=== PATIENT | female | born 1940 | race Caucasian/White ===

== ENCOUNTER → 2016-03-21 | Outpatient (CLI) | payer OTHER ==
[~2016-03-21] MED LIST: GAB400C PO; GLYB5TAB8 OR
[2016-03-21 17:18] LABS: Basophils # (auto) 0 uL; Basophils % (auto) 0.6 % (0.0-2.0); Eosinophils # (auto) 0.1 uL; Eosinophils % (auto) 1.5 % (0.0-7.0); Hematocrit 39.5 % (36.0-46.0); Hemoglobin 12.4 g/dL (12.2-16.2); Lymphocytes # (auto) 2.5 uL; Lymphocytes % (auto) 31.9 % (10.0-50.0); Mean Corpuscular Hemoglobin 29.4 pg (28.0-32.0); Mean Corpuscular Hgb Conc. 31.4 g/dL (32.0-36.0); Mean Corpuscular Volume 93.8 fL (80.0-100.0); Mean Platelet Volume 8.1 fL (7.4-10.4); Monocytes # (auto) 0.4 uL; Monocytes % (auto) 4.8 % (0.0-12.0); Neutrophils # (auto) 4.8 uL; Neutrophils % (auto) 61.2 % (37.0-80.0); Platelet Count (auto) 278 10^3/uL (140-450); Red Cell Distribution Width 13.8 % (11.6-16.0); White Blood Cell 7.8 10^3/uL (4.4-10.8)
[2016-03-21 17:22] LABS: Albumin 3.5 g/dL (3.4-5.0); Calcium 8.7 mg/dL (8.5-10.1); Potassium 4.1 mmol/L (3.5-5.1)
[2016-03-21 17:28] LABS: Bilirubin, Total 0.3 mg/dL (0.2-1.0); Total Protein 7.2 g/dL (6.4-8.2)
== END | disposition home or self-care (01) ==
LOC: LAB 16:04
PROVIDERS: ATTEND Internal Medicine
DX: E11.42 Type 2 diabetes mellitus with diabetic polyneuropathy (principal)
CPT/HCPCS: 36415; 80053; 80061; 82306; 82607; 83036; 84439; 84443; 85025; 85652

== ENCOUNTER → 2016-10-01 | Outpatient (CLI) | payer OTHER ==
[2016-10-01 15:31] LABS: Basophils # (auto) 0.1 uL; Basophils % (auto) 0.6 % (0.0-2.0); CONDITION Y; Eosinophils # (auto) 0.2 uL; Eosinophils % (auto) 1.7 % (0.0-7.0); Hemoglobin 13.9 g/dL (12.2-16.2); Lymphocytes # (auto) 2.3 uL; Lymphocytes % (auto) 24.8 % (10.0-50.0); Mean Corpuscular Hemoglobin 30.9 pg (28.0-32.0); Mean Corpuscular Hgb Conc. 33.1 g/dL (32.0-36.0); Mean Corpuscular Volume 93.5 fL (80.0-100.0); Mean Platelet Volume 8.5 fL (7.4-10.4); Monocytes # (auto) 0.4 uL; Monocytes % (auto) 4.2 % (0.0-12.0); Neutrophils # (auto) 6.3 uL; Neutrophils % (auto) 68.7 % (37.0-80.0); Platelet Count (auto) 282 10^3/uL (140-450); Red Cell Distribution Width 14.1 % (11.6-16.0); SUSPECT SEE PRINTOUT; White Blood Cell 9.2 10^3/uL (4.4-10.8)
[2016-10-01 16:22] LABS: Albumin 3.7 g/dL (3.4-5.0); BUN/Creatinine Ratio 20.1; Bilirubin, Total 0.5 mg/dL (0.2-1.0); Calcium 9.1 mg/dL (8.5-10.1); Potassium 4.5 mmol/L (3.5-5.1); Total Protein 7.5 g/dL (6.4-8.2); Uric Acid 9.9 mg/dL (2.6-6.0)
[2016-10-01 18:54] LABS: Platelet Estimate Adequate
[2016-10-01 18:55] LABS: Anisocytosis Slight; Ovalocytes FEW; Platelet Clumps OCCL.
== END | disposition home or self-care (01) ==
LOC: LAB 15:00
PROVIDERS: ATTEND Internal Medicine
DX: E11.21 Type 2 diabetes mellitus with diabetic nephropathy (principal); E11.42 Type 2 diabetes mellitus with diabetic polyneuropathy; E11.22 Type 2 diabetes mellitus with diabetic chronic kidney disease; N18.3 Chronic kidney disease, stage 3 (moderate); E11.319 Type 2 diabetes mellitus with unspecified diabetic retinopathy without macular edema; Z90.49 Acquired absence of other specified parts of digestive tract
CPT/HCPCS: 36415; 80053; 83036; 84550; 85025

== ENCOUNTER → 2017-04-10 | Outpatient (CLI) | payer OTHER ==
[2017-04-10 17:04] LABS: Albumin 3.7 g/dL (3.4-5.0); BUN/Creatinine Ratio 17.9; Bilirubin, Total 0.4 mg/dL (0.2-1.0); Calcium 8.8 mg/dL (8.5-10.1); Potassium 4.3 mmol/L (3.5-5.1); Total Protein 7.7 g/dL (6.4-8.2)
== END | disposition home or self-care (01) ==
LOC: LAB 16:20
PROVIDERS: ATTEND Internal Medicine
DX: I10 Essential (primary) hypertension (principal); E10.9 Type 1 diabetes mellitus without complications
CPT/HCPCS: 36415; 80053; 82043; 83036

== ENCOUNTER 2017-09-09 16:13 | Inpatient (IN) | payer OTHER ==
[~2017-09-09] VITALS: Ht 165.1 cm; Wt 131.0 kg
[2017-09-09 17:03] LABS: Basophils # (auto) 0 uL; Basophils % (auto) 0.4 % (0.0-2.0); Eosinophils # (auto) 0 uL; Eosinophils % (auto) 0.1 % (0.0-7.0); Hematocrit 38.9 % (36.0-46.0); Hemoglobin 12.9 g/dL (12.2-16.2); Lymphocytes # (auto) 1.1 uL; Lymphocytes % (auto) 10.6 % (10.0-50.0); Mean Corpuscular Hemoglobin 30.8 pg (28.0-32.0); Mean Corpuscular Volume 93.3 fL (80.0-100.0); Monocytes # (auto) 1.1 uL; Monocytes % (auto) 10.8 % (0.0-12.0); Neutrophils % (auto) 78.1 % (37.0-80.0); Platelet Count (auto) 220 10^3/uL (140-450); Red Blood Cells 4.17 10^6/uL (4.0-5.20); Red Cell Distribution Width 15.2 % (11.8-14.3); White Blood Cell 10.3 10^3/uL (4.4-10.8)
[2017-09-09 17:19] LABS: Albumin 2.8 g/dL (3.4-5.0); BUN/Creatinine Ratio 39.4; Calcium 8.7 mg/dL (8.5-10.1); Potassium 4.9 mmol/L (3.5-5.1)
[2017-09-09 17:21] LABS: Bilirubin, Total 0.7 mg/dL (0.2-1.0); Total Protein 6.5 g/dL (6.4-8.2)
[2017-09-09] MEDS ORDERED: SODIUM CHLORIDE 0.9% 1,000 ML IV ONE ×3 (18:09→21:30)
[2017-09-09] MEDS ORDERED: MORPHINE SULFATE 4 MG/ML SYR/VIAL IV ONE ×2 (18:15→20:00)
[2017-09-09] MEDS ORDERED: ONDANSETRON HCL 4 MG/2 ML VIAL IV ONE (18:15)
[2017-09-09 19:22] LABS: INR 0.99 (0.9-1.15); Partial Thromboplastin Time 27.5 sec (23.78-33.04); Prothrombin Time 10.6 sec (9.27-12.13)
[2017-09-09 19:32] LABS: Magnesium 2.4 mg/dL (1.6-2.6)
[2017-09-09] MEDS ORDERED: ONDANSETRON HCL 4 MG/2 ML VIAL IV PRN (21:30)
[2017-09-09] MEDS ORDERED: TEMAZEPAM 15 MG CAP PO PRN (21:30)
[2017-09-09] MEDS ORDERED: NITROGLYCERIN 0.4 MG SL TAB SL PRN (21:30)
[2017-09-09] MEDS ORDERED: ACETAMINOPHEN 325 MG TAB PO PRN (21:30)
[2017-09-09] MEDS ORDERED: MORPHINE SULF INJ 2 MG/ML SYRINGE 1ML IV PRN (21:30)
[2017-09-09] MEDS ORDERED: glyBURIDE 5 MG TAB PO ONE (21:30)
[2017-09-09 22:45] VITALS: BP 134/71
[2017-09-09 23:00] VITALS: BP 134/71
[2017-09-09] MEDS: ENOXAPARIN SOD 40 MG/0.4 ML SYRINGE SC SCH (23:21)
[2017-09-09] MEDS: PANTOPRAZOLE 40 MG TAB PO SCH (23:22)
[2017-09-10 00:21] LABS: Urine Bacteria NONE SEEN /hpf (None Seen); Urine Blood Negative /uL (Negative); Urine Hyaline Cast MOD /lpf (0 - 2); Urine Specific Gravity 1.018 (1.001-1.035); Urine WBC 1 /hpf (0 - 5)
[2017-09-10] MEDS: SODIUM CHLORIDE 0.9% 1,000 ML IV SCH ×3 (05:30→18:52)
[2017-09-10 06:00] VITALS: BP 130/54
[2017-09-10] MEDS: glyBURIDE 5 MG TAB PO SCH ×2 (06:34→18:53)
[2017-09-10 06:48] LABS: Basophils # (auto) 0 uL; Basophils % (auto) 0.3 % (0.0-2.0); Eosinophils # (auto) 0.1 uL; Eosinophils % (auto) 0.8 % (0.0-7.0); Hematocrit 35.6 % (36.0-46.0); Hemoglobin 11.8 g/dL (12.2-16.2); Lymphocytes # (auto) 1.7 uL; Lymphocytes % (auto) 21.7 % (10.0-50.0); Mean Corpuscular Hgb Conc. 33.1 g/dL (32.0-36.0); Mean Corpuscular Volume 93.7 fL (80.0-100.0); Monocytes # (auto) 0.9 uL; Neutrophils % (auto) 65.2 % (37.0-80.0); Nucleated Red Blood Cells % 0.1 %; Platelet Count (auto) 202 10^3/uL (140-450); Red Cell Distribution Width 15.2 % (11.8-14.3); White Blood Cell 7.6 10^3/uL (4.4-10.8)
[2017-09-10 07:03] LABS: Albumin 2.4 g/dL (3.4-5.0); BUN/Creatinine Ratio 41.5; Potassium 4.3 mmol/L (3.5-5.1)
[2017-09-10 07:25] LABS: Bilirubin, Total 0.3 mg/dL (0.2-1.0); Total Protein 5.7 g/dL (6.4-8.2)
[2017-09-10 09:00] VITALS: BP 109/54
[2017-09-10] MEDS: ENOXAPARIN SOD 40 MG/0.4 ML SYRINGE SC SCH (09:15)
[2017-09-10] MEDS: PANTOPRAZOLE 40 MG TAB PO SCH (09:15)
[2017-09-10] MEDS: HYDROcodone-ACET 5/325MG TAB PO PRN (09:20)
[2017-09-10] MEDS ORDERED: PIOG30TA37 (11:09)
[2017-09-10] MEDS ORDERED: GLIP-116 (11:09)
[2017-09-10] MEDS ORDERED: PIO30T PO (11:30)
[2017-09-10] MEDS ORDERED: LOVA20TA4 PO (11:30)
[2017-09-10] MEDS ORDERED: GLIP-116 PO (11:30)
[2017-09-10] MEDS ORDERED: FLUO10TA18 PO (11:30)
[2017-09-10] MEDS: SILVER SULFADIAZINE 1 % TOPICAL CREAM 50GM TOP SCH (12:28)
[2017-09-10 13:00] VITALS: BP 105/52
[2017-09-10] MEDS ORDERED: MORPHINE SULF INJ 2 MG/ML SYRINGE 1ML IV ONE (14:00)
[2017-09-10] MEDS ORDERED: DEXTROSE (50%) 50ML SYRG IV PRN (14:30)
[2017-09-10 17:00] VITALS: BP 101/42
[2017-09-10] MEDS: ACCU-CHEK COMFORT CURVE STRIP VI SCH ×2 (18:53→21:51)
[2017-09-10] MEDS: InsuLIN REG 1unit/0.01ml Soln (100units/ml) SC SCH ×2 (18:56→21:52)
[2017-09-10] MEDS: MORPHINE SULF INJ 2 MG/ML SYRINGE 1ML IV PRN (21:52)
[2017-09-10 22:20] VITALS: BP 116/54
[2017-09-11] VITALS (7 sets, daily range): BP systolic 111–125; BP diastolic 53–58
[2017-09-11] MEDS: SODIUM CHLORIDE 0.9% 1,000 ML IV SCH (00:32)
[2017-09-11] MEDS: MORPHINE SULF INJ 2 MG/ML SYRINGE 1ML IV PRN ×2 (03:14→22:12)
[2017-09-11] MEDS: HYDROcodone-ACET 5/325MG TAB PO PRN ×2 (05:48→12:20)
[2017-09-11] MEDS: ACCU-CHEK COMFORT CURVE STRIP VI SCH ×3 (06:57→17:01)
[2017-09-11] MEDS: glyBURIDE 5 MG TAB PO SCH ×2 (06:57→17:03)
[2017-09-11] MEDS: InsuLIN REG 1unit/0.01ml Soln (100units/ml) SC SCH ×3 (06:58→17:02)
[2017-09-11 07:35] LABS: Hematocrit 33.4 % (36.0-46.0); Mean Corpuscular Hemoglobin 30.4 pg (28.0-32.0); Mean Corpuscular Hgb Conc. 32.8 g/dL (32.0-36.0); Mean Corpuscular Volume 92.9 fL (80.0-100.0); Platelet Count (auto) 184 10^3/uL (140-450); White Blood Cell 7.3 10^3/uL (4.4-10.8)
[2017-09-11 07:47] LABS: Basophils % (manual) 0 (0.0-2.0); Blast Cells 0; Myelocytes % 0; Promyelocytes % 0; Reactive Lymphocytes 0
[2017-09-11 07:53] LABS: Alanine Aminotransferase 39 U/L (13-56); Albumin 2.2 g/dL (3.4-5.0); Alkaline Phosphatase 44 U/L (45-117); Anion Gap 9 (5-15); Aspartate Aminotransferase 24 U/L (15-37); BUN/Creatinine Ratio 35.7; Bilirubin, Total 0.2 mg/dL (0.2-1.0); Calcium 7.7 mg/dL (8.5-10.1); Carbon Dioxide 18 mmol/L (21-32); Chloride 109 mmol/L (98-107); Cholesterol 136 mg/dL (< 200); Creatine Kinase IFCC 531 U/L (26-192); GFR African American 26 mL/min; GFR Non-African American 21 mL/min; Glucose 157 mg/dL (74-106); HDL Cholesterol 47 mg/dL (40-59); LDL Cholesterol 70 mg/dL (< 100); Magnesium 2.4 mg/dL (1.6-2.6); Potassium 3.8 mmol/L (3.5-5.1); Sodium 136 mmol/L (136-145); Total Protein 5.4 g/dL (6.4-8.2); Triglycerides 136 mg/dL (< 150)
[2017-09-11 08:11] LABS: Blood Urea Nitrogen 85 mg/dL (7-18)
[2017-09-11 09:18] LABS: Band Neutrophils % (manual) 1; Eosinophils % (manual) 5 (0-7); Lymphocytes % (manual) 25 (10.0-50.0); Metamyelocytes % 1; Monocytes % (manual) 13 (0-12)
[2017-09-11] MEDS: SILVER SULFADIAZINE 1 % TOPICAL CREAM 50GM TOP SCH (10:23)
[2017-09-11] MEDS: PANTOPRAZOLE 40 MG TAB PO SCH (10:24)
[2017-09-11] MEDS: ENOXAPARIN SOD 30 MG/0.3 ML SYRINGE SC SCH (10:24)
[2017-09-11] MEDS ORDERED: FUROSEMIDE 40 MG/4 ML VIAL IV ONE (14:15)
[2017-09-11] MEDS ORDERED: SODIUM CHLORIDE 0.9% 1,000 ML IV SCH (14:30)
[2017-09-11] MEDS: IPRATROPIUM BROM 0.5 MG/2.5ML INH SOL NEB SCH (18:15)
[2017-09-11] MEDS: ALBUTEROL SULF 2.5 MG/0.5ML(0.5%) NEB SOLN NEB SCH (18:15)
[2017-09-12] MEDS: InsuLIN REG 1unit/0.01ml Soln (100units/ml) SC SCH ×5 (02:26→22:30)
[2017-09-12] MEDS: ACCU-CHEK COMFORT CURVE STRIP VI SCH ×5 (02:26→22:30)
[2017-09-12 04:49] VITALS: BP 137/60
[2017-09-12] MEDS: MORPHINE SULF INJ 2 MG/ML SYRINGE 1ML IV PRN ×2 (05:59→22:30)
[2017-09-12] MEDS: glyBURIDE 5 MG TAB PO SCH ×2 (06:22→17:43)
[2017-09-12] MEDS: ALBUTEROL SULF 2.5 MG/0.5ML(0.5%) NEB SOLN NEB SCH ×4 (06:33→18:43)
[2017-09-12] MEDS: IPRATROPIUM BROM 0.5 MG/2.5ML INH SOL NEB SCH ×4 (06:33→18:43)
[2017-09-12 07:33] LABS: Potassium 4.1 mmol/L (3.5-5.1)
[2017-09-12 07:40] LABS: BUN/Creatinine Ratio 39.8; Calcium 7.8 mg/dL (8.5-10.1)
[2017-09-12 08:00] VITALS: BP 124/54
[2017-09-12] MEDS ORDERED: FUROSEMIDE 40 MG/4 ML VIAL IV SCH (10:00)
[2017-09-12] MEDS ORDERED: FUROSEMIDE 40 MG/4 ML VIAL IV ONE (10:30)
[2017-09-12] MEDS: GABAPENTIN 400 MG CAP PO SCH ×2 (11:40→22:29)
[2017-09-12] MEDS: ENOXAPARIN SOD 30 MG/0.3 ML SYRINGE SC SCH (11:40)
[2017-09-12] MEDS: PANTOPRAZOLE 40 MG TAB PO SCH (11:41)
[2017-09-12] MEDS: HYDROcodone-ACET 5/325MG TAB PO PRN ×2 (11:44→23:33)
[2017-09-12 12:00] VITALS: BP 142/70
[2017-09-12 16:00] VITALS: BP 106/70
[2017-09-12] MEDS: SILVER SULFADIAZINE 1 % TOPICAL CREAM 50GM TOP SCH (16:35)
[2017-09-12 22:00] VITALS: BP 132/49
[2017-09-13 05:04] VITALS: BP 157/52
[2017-09-13 06:33] LABS: Potassium 3.7 mmol/L (3.5-5.1)
[2017-09-13] MEDS: glyBURIDE 5 MG TAB PO SCH ×2 (06:33→17:33)
[2017-09-13] MEDS: InsuLIN REG 1unit/0.01ml Soln (100units/ml) SC SCH ×4 (06:33→22:21)
[2017-09-13] MEDS: ACCU-CHEK COMFORT CURVE STRIP VI SCH ×4 (06:34→22:22)
[2017-09-13] MEDS: ALBUTEROL SULF 2.5 MG/0.5ML(0.5%) NEB SOLN NEB SCH ×2 (06:37→11:23)
[2017-09-13] MEDS: IPRATROPIUM BROM 0.5 MG/2.5ML INH SOL NEB SCH ×2 (06:37→11:23)
[2017-09-13 08:00] VITALS: BP 115/51
[2017-09-13 12:00] VITALS: BP 138/49
[2017-09-13] MEDS: PANTOPRAZOLE 40 MG TAB PO SCH (12:19)
[2017-09-13] MEDS: ENOXAPARIN SOD 30 MG/0.3 ML SYRINGE SC SCH (12:19)
[2017-09-13] MEDS: GABAPENTIN 400 MG CAP PO SCH ×2 (12:19→22:21)
[2017-09-13] MEDS: SILVER SULFADIAZINE 1 % TOPICAL CREAM 50GM TOP SCH (12:19)
[2017-09-13] MEDS ORDERED: DOCUSATE SOD 100 MG CAP PO PRN (13:45)
[2017-09-13] MEDS ORDERED: LACTULOSE 20Gm/30ML SOLN PO ONE (14:00)
[2017-09-13] MEDS: HYDROcodone-ACET 5/325MG TAB PO PRN (14:11)
[2017-09-13 16:00] VITALS: BP 121/27
[2017-09-13] MEDS: LACTULOSE 20Gm/30ML SOLN PO SCH ×2 (17:33→22:22)
[2017-09-13 23:11] VITALS: BP 100/57
[2017-09-14 05:28] VITALS: BP 132/55
[2017-09-14] MEDS: LACTULOSE 20Gm/30ML SOLN PO SCH ×3 (06:00→17:59)
[2017-09-14] MEDS: ACCU-CHEK COMFORT CURVE STRIP VI SCH ×4 (06:23→22:00)
[2017-09-14] MEDS: glyBURIDE 5 MG TAB PO SCH ×2 (06:23→18:00)
[2017-09-14] MEDS: InsuLIN REG 1unit/0.01ml Soln (100units/ml) SC SCH ×4 (06:23→22:00)
[2017-09-14] MEDS: HYDROcodone-ACET 5/325MG TAB PO PRN (06:30)
[2017-09-14] MEDS ORDERED: MORPHINE SULFATE 4 MG/ML SYR/VIAL ONE (06:55)
[2017-09-14] MEDS ORDERED: MORPHINE SULFATE 4 MG/ML SYR/VIAL IV ONE (07:00)
[2017-09-14 07:17] LABS: Hematocrit 32.2 % (36.0-46.0); Hemoglobin 11.1 g/dL (12.2-16.2); Mean Corpuscular Hemoglobin 31.6 pg (28.0-32.0); Mean Corpuscular Hgb Conc. 34.4 g/dL (32.0-36.0); Mean Corpuscular Volume 91.9 fL (80.0-100.0); Platelet Count (auto) 210 10^3/uL (140-450); White Blood Cell 7.1 10^3/uL (4.4-10.8)
[2017-09-14 07:21] LABS: Basophils % (manual) 0 (0.0-2.0); Blast Cells 0; Metamyelocytes % 0; Myelocytes % 0; Promyelocytes % 0; Reactive Lymphocytes 0
[2017-09-14 07:36] LABS: BUN/Creatinine Ratio 31.2; Bilirubin, Total 0.3 mg/dL (0.2-1.0); Calcium 8.4 mg/dL (8.5-10.1); Phosphorus 2.1 mg/dL (2.5-4.90); Total Protein 5.9 g/dL (6.4-8.2)
[2017-09-14 08:00] VITALS: BP 142/70
[2017-09-14 09:00] VITALS: BP 137/62
[2017-09-14] MEDS: GABAPENTIN 400 MG CAP PO SCH ×2 (10:28→21:59)
[2017-09-14] MEDS: PANTOPRAZOLE 40 MG TAB PO SCH (10:29)
[2017-09-14] MEDS: SILVER SULFADIAZINE 1 % TOPICAL CREAM 50GM TOP SCH (10:29)
[2017-09-14] MEDS: ENOXAPARIN SOD 30 MG/0.3 ML SYRINGE SC SCH (10:29)
[2017-09-14 10:43] LABS: Band Neutrophils % (manual) 1; Eosinophils % (manual) 1 (0-7); Lymphocytes % (manual) 15 (10.0-50.0); Monocytes % (manual) 11 (0-12)
[2017-09-14 13:00] VITALS: BP 133/52
[2017-09-14] MEDS ORDERED: cefTAZidime 1 GM in SODIUM CHL 0.9% 50 ML IV ONE ×2 (16:15→16:30)
[2017-09-14] MEDS ORDERED: cefTAZidime 1 GM in SODIUM CHL 0.9% 50 ML IV SCH (16:25)
[2017-09-14 17:00] VITALS: BP 159/60
[2017-09-14 22:59] VITALS: BP 126/63
[2017-09-15] MEDS: LACTULOSE 20Gm/30ML SOLN PO SCH ×5 (00:13→22:26)
[2017-09-15 05:18] VITALS: BP 139/63
[2017-09-15] MEDS: cefTAZidime 1 GM in SODIUM CHL 0.9% 50 ML IV SCH (06:39)
[2017-09-15] MEDS: glyBURIDE 5 MG TAB PO SCH ×2 (06:40→18:34)
[2017-09-15] MEDS: ACCU-CHEK COMFORT CURVE STRIP VI SCH ×4 (06:41→22:26)
[2017-09-15] MEDS: InsuLIN REG 1unit/0.01ml Soln (100units/ml) SC SCH ×4 (06:41→22:26)
[2017-09-15] MEDS: traMADol HCL 50 MG TAB PO PRN ×3 (06:42→22:25)
[2017-09-15 08:49] VITALS: BP 137/66
[2017-09-15] MEDS: GABAPENTIN 400 MG CAP PO SCH ×2 (09:52→22:25)
[2017-09-15] MEDS: PANTOPRAZOLE 40 MG TAB PO SCH (09:52)
[2017-09-15] MEDS: ENOXAPARIN SOD 40 MG/0.4 ML SYRINGE SC SCH (09:52)
[2017-09-15] MEDS: SILVER SULFADIAZINE 1 % TOPICAL CREAM 50GM TOP SCH (10:00)
[2017-09-15] MEDS ORDERED: SODIUM PHOSPHATES 24 MEQ in SODIUM CHL 0.9% 100 ML IV ONE (10:45)
[2017-09-15 12:07] VITALS: BP 149/76
[2017-09-15] MEDS: MORPHINE SULF INJ 2 MG/ML SYRINGE 1ML IV PRN (12:53)
[2017-09-15 18:15] VITALS: BP 142/69
[2017-09-15 22:00] VITALS: BP 152/53
[2017-09-16 05:10] VITALS: BP 142/78
[2017-09-16] MEDS: cefTAZidime 1 GM in SODIUM CHL 0.9% 50 ML IV SCH ×3 (06:00→18:00)
[2017-09-16] MEDS: traMADol HCL 50 MG TAB PO PRN ×2 (06:16→21:04)
[2017-09-16] MEDS: GABAPENTIN 400 MG CAP PO SCH (06:16)
[2017-09-16] MEDS: InsuLIN REG 1unit/0.01ml Soln (100units/ml) SC SCH ×3 (06:17→19:58)
[2017-09-16] MEDS: glyBURIDE 5 MG TAB PO SCH ×2 (06:17→19:58)
[2017-09-16] MEDS: ACCU-CHEK COMFORT CURVE STRIP VI SCH ×3 (06:18→19:58)
[2017-09-16] MEDS: LACTULOSE 20Gm/30ML SOLN PO SCH ×3 (06:28→18:00)
[2017-09-16 07:32] LABS: Albumin 1.8 g/dL (3.4-5.0); BUN/Creatinine Ratio 30.1; Bilirubin, Total 0.3 mg/dL (0.2-1.0); Calcium 7.9 mg/dL (8.5-10.1); Magnesium 2.2 mg/dL (1.6-2.6); Phosphorus 4.3 mg/dL (2.5-4.90); Potassium 4.1 mmol/L (3.5-5.1); Total Protein 5.5 g/dL (6.4-8.2)
[2017-09-16 08:00] VITALS: BP 156/72
[2017-09-16] MEDS ORDERED: BISACODYL 10 MG RECT SUPP PR ONE (10:45)
[2017-09-16] MEDS ORDERED: ASCORBIC ACID 500 MG TAB PO ONE (10:45)
[2017-09-16] MEDS ORDERED: ZINC SULFATE 220mg CAP or TAB PO ONE (10:45)
[2017-09-16] MEDS: ENOXAPARIN SOD 40 MG/0.4 ML SYRINGE SC SCH (10:54)
[2017-09-16] MEDS: PANTOPRAZOLE 40 MG TAB PO SCH (10:54)
[2017-09-16] MEDS: SILVER SULFADIAZINE 1 % TOPICAL CREAM 50GM TOP SCH (10:54)
[2017-09-16 13:00] VITALS: BP 143/71
[2017-09-16 17:00] VITALS: BP 126/61
[2017-09-16 20:14] VITALS: BP 131/75
[2017-09-16] MEDS ORDERED: DOCUSATE SOD 100 MG CAP PO SCH (22:00)
[2017-09-16] MEDS ORDERED: ASCORBIC ACID 500 MG TAB PO SCH (22:00)
[2017-09-16] MEDS: MORPHINE SULF INJ 2 MG/ML SYRINGE 1ML IV PRN (23:18)
[2017-09-17] MEDS ORDERED: FLUoxetine HCL 10 MG CAP PO SCH (10:00)
[2017-09-17] MEDS ORDERED: ZINC SULFATE 220mg CAP or TAB PO SCH (10:00)
== END 2017-09-16 23:15 | disposition short-term general hospital (02) | DRG 922 ==
LOC: ER 16:13 → EDBD 16:13 → TELE 16:14 → TELE-CENTR 22:45
PROVIDERS: ADMIT Nurse Practitioner; ATTEND Internal Medicine
DX: T67.0XXA Heatstroke and sunstroke, initial encounter (principal); N17.0 Acute kidney failure with tubular necrosis; M62.82 Rhabdomyolysis; E44.0 Moderate protein-calorie malnutrition; Z68.42 Body mass index [BMI] 45.0-49.9, adult; N18.4 Chronic kidney disease, stage 4 (severe); E11.21 Type 2 diabetes mellitus with diabetic nephropathy; E11.22 Type 2 diabetes mellitus with diabetic chronic kidney disease; E66.01 Morbid (severe) obesity due to excess calories; E78.5 Hyperlipidemia, unspecified; E83.39 Other disorders of phosphorus metabolism; E86.9 Volume depletion, unspecified; E11.42 Type 2 diabetes mellitus with diabetic polyneuropathy; Z60.2 Problems related to living alone; E86.0 Dehydration; R26.9 Unspecified abnormalities of gait and mobility; W01.0XXA Fall on same level from slipping, tripping and stumbling without subsequent striking against object, initial encounter; M16.11 Unilateral primary osteoarthritis, right hip; I12.9 Hypertensive chronic kidney disease with stage 1 through stage 4 chronic kidney disease, or unspecified chronic kidney disease; K59.00 Constipation, unspecified; Z82.49 Family history of ischemic heart disease and other diseases of the circulatory system; Z83.3 Family history of diabetes mellitus; Z90.49 Acquired absence of other specified parts of digestive tract; Z98.51 Tubal ligation status; Z87.891 Personal history of nicotine dependence; Z83.42 Family history of familial hypercholesterolemia; Y93.89 Activity, other specified; Y92.017 Garden or yard in single-family (private) house as the place of occurrence of the external cause; Y99.8 Other external cause status; X30.XXXA Exposure to excessive natural heat, initial encounter
CPT/HCPCS: 36415; 51702; 71045; 73700; 80048; 80053; 80061; 81001; 82550; 82962; 83036; 83735; 83880; 84100; 84443; 84484; 84550; 85007; 85025; 85027; 85610; 85730; 94640; 94761; 96361; 96374; 96375; 97110; 97163; 97530; A6257; J1815; J2405

== ENCOUNTER 2017-09-19 23:19 | Inpatient (IN) | payer OTHER ==
[~2017-09-19] VITALS: Ht 165.1 cm; Wt 136.2 kg
[~2017-09-19 23:19] MED LIST changes: +FLUO10TA18 PO; +GLIP-116 PO; -GLYB5TAB8 OR; +LOVA20TA4 PO; +PIO30T PO
[2017-09-19 23:45] VITALS: BP 102/57
[2017-09-20] VITALS: BP 102/57
[2017-09-20 05:00] VITALS: BP 119/58
[2017-09-20] MEDS: MORPHINE SULF INJ 2 MG/ML SYRINGE 1ML IV PRN ×2 (05:08→12:44)
[2017-09-20 07:07] LABS: Hematocrit 28.6 % (36.0-46.0); Hemoglobin 9.3 g/dL (12.2-16.2); Mean Corpuscular Hemoglobin 30.3 pg (28.0-32.0); Mean Corpuscular Hgb Conc. 32.5 g/dL (32.0-36.0); Mean Corpuscular Volume 93.1 fL (80.0-100.0); Platelet Count (auto) 295 10^3/uL (140-450); Red Blood Cells 3.07 10^6/uL (4.0-5.20); Red Cell Distribution Width 14.6 % (11.8-14.3); White Blood Cell 7.9 10^3/uL (4.4-10.8)
[2017-09-20 07:17] LABS: Albumin 1.8 g/dL (3.4-5.0); BUN/Creatinine Ratio 42.4; Basophils % (manual) 0 (0.0-2.0); Blast Cells 0; Metamyelocytes % 0; Myelocytes % 0; Potassium 4.8 mmol/L (3.5-5.1); Promyelocytes % 0; Reactive Lymphocytes 0
[2017-09-20 07:20] LABS: Bilirubin, Total 0.1 mg/dL (0.2-1.0); Total Protein 5.4 g/dL (6.4-8.2)
[2017-09-20 07:21] LABS: INR 0.9 (0.9-1.15); Partial Thromboplastin Time 30.6 sec (23.78-33.04); Prothrombin Time 9.7 sec (9.27-12.13)
[2017-09-20] MEDS ORDERED: MORPHINE SULF INJ 2 MG/ML SYRINGE 1ML IV PRN (07:30)
[2017-09-20] MEDS ORDERED: ACETAMINOPHEN 325 MG TAB PO PRN (07:30)
[2017-09-20] MEDS ORDERED: NITROGLYCERIN 0.4 MG SL TAB SL PRN (07:30)
[2017-09-20] MEDS ORDERED: TEMAZEPAM 15 MG CAP PO PRN (07:30)
[2017-09-20 09:00] VITALS: BP 133/58
[2017-09-20] MEDS: PANTOPRAZOLE 40 MG TAB PO SCH (09:01)
[2017-09-20] MEDS: ENOXAPARIN SOD 40 MG/0.4 ML SYRINGE SC SCH ×2 (09:02→22:40)
[2017-09-20] MEDS: HYDROcodone-ACET 7.5/325MG TAB PO PRN ×2 (09:02→22:40)
[2017-09-20] MEDS: SODIUM CHLORIDE 0.9% 1,000 ML IV SCH ×2 (09:03→21:20)
[2017-09-20] MEDS: PIOGLITAZONE HYDROCHLORIDE 30 MG TAB PO SCH (09:08)
[2017-09-20] MEDS: glipiZIDE 5 MG TAB PO SCH ×2 (09:08→18:21)
[2017-09-20] MEDS: FLUoxetine HCL 10 MG CAP PO SCH (09:09)
[2017-09-20] MEDS: SILVER SULFADIAZINE 1 % TOPICAL CREAM 50GM TOP SCH (09:09)
[2017-09-20 11:38] LABS: Band Neutrophils % (manual) 3; Eosinophils % (manual) 1 (0-7)
[2017-09-20 11:39] LABS: Lymphocytes % (manual) 24 (10.0-50.0); Monocytes % (manual) 7 (0-12)
[2017-09-20 13:00] VITALS: BP 127/63
[2017-09-20 16:36] VITALS: BP 115/48
[2017-09-20] MEDS: NEOMYCIN-BACITRACIN-POLYM 15GM TOP OINT TOP SCH (18:19)
[2017-09-20 22:00] VITALS: BP 134/57
[2017-09-20] MEDS: PRAVASTATIN SODIUM 20 MG TAB PO SCH (22:40)
[2017-09-21 05:00] VITALS: BP 127/53
[2017-09-21 06:53] LABS: Hematocrit 26.1 % (36.0-46.0); Hemoglobin 8.6 g/dL (12.2-16.2); Mean Corpuscular Hemoglobin 30.5 pg (28.0-32.0); Mean Corpuscular Volume 92.4 fL (80.0-100.0); Platelet Count (auto) 294 10^3/uL (140-450); Red Blood Cells 2.82 10^6/uL (4.0-5.20); Red Cell Distribution Width 14.3 % (11.8-14.3); White Blood Cell 7.6 10^3/uL (4.4-10.8)
[2017-09-21] MEDS: glipiZIDE 5 MG TAB PO SCH ×2 (07:08→17:50)
[2017-09-21 07:16] LABS: Band Neutrophils % (manual) 0; Basophils % (manual) 0 (0.0-2.0); Blast Cells 0; Promyelocytes % 0; Reactive Lymphocytes 0
[2017-09-21 07:17] LABS: Albumin 1.7 g/dL (3.4-5.0); BUN/Creatinine Ratio 46.8; Bilirubin, Total 0.1 mg/dL (0.2-1.0); Calcium 7.9 mg/dL (8.5-10.1); Potassium 4.5 mmol/L (3.5-5.1); Total Protein 5.2 g/dL (6.4-8.2)
[2017-09-21 08:28] VITALS: BP 130/57
[2017-09-21] MEDS ORDERED: BISACODYL 10 MG RECT SUPP PR ONE (08:45)
[2017-09-21] MEDS ORDERED: MILK OF MAGNESIA 30ML SUSP PO ONE (08:45)
[2017-09-21] MEDS: SILVER SULFADIAZINE 1 % TOPICAL CREAM 50GM TOP SCH (10:00)
[2017-09-21] MEDS: FERROUS SULFATE 325 MG TAB PO SCH (10:01)
[2017-09-21] MEDS: DOCUSATE SOD 100 MG CAP PO SCH ×2 (10:01→21:31)
[2017-09-21] MEDS: HYDROcodone-ACET 7.5/325MG TAB PO PRN ×2 (10:01→17:51)
[2017-09-21] MEDS: PANTOPRAZOLE 40 MG TAB PO SCH (10:01)
[2017-09-21] MEDS: PIOGLITAZONE HYDROCHLORIDE 30 MG TAB PO SCH (10:02)
[2017-09-21] MEDS: ENOXAPARIN SOD 40 MG/0.4 ML SYRINGE SC SCH ×2 (10:02→21:31)
[2017-09-21] MEDS: FLUoxetine HCL 10 MG CAP PO SCH (10:03)
[2017-09-21] MEDS: SODIUM CHLORIDE 0.9% 1,000 ML IV SCH (10:09)
[2017-09-21 12:00] VITALS: BP 129/56
[2017-09-21 13:29] LABS: Eosinophils % (manual) 5 (0-7); Lymphocytes % (manual) 25 (10.0-50.0); Metamyelocytes % 2; Monocytes % (manual) 8 (0-12); Myelocytes % 1
[2017-09-21] MEDS: NEOMYCIN-BACITRACIN-POLYM 15GM TOP OINT TOP SCH (14:00)
[2017-09-21 16:15] VITALS: BP 151/58
[2017-09-21] MEDS: PRAVASTATIN SODIUM 20 MG TAB PO SCH (21:31)
[2017-09-21 22:00] VITALS: BP 142/57
[2017-09-22] MEDS: HYDROcodone-ACET 7.5/325MG TAB PO PRN ×2 (02:22→20:17)
[2017-09-22] MEDS: SODIUM CHLORIDE 0.9% 1,000 ML IV SCH ×3 (02:34→19:15)
[2017-09-22 05:00] VITALS: BP 150/73
[2017-09-22 06:02] LABS: BUN/Creatinine Ratio 40.3; Calcium 8.4 mg/dL (8.5-10.1)
[2017-09-22 06:10] LABS: Hematocrit 27.6 % (36.0-46.0); Hemoglobin 9.1 g/dL (12.2-16.2); Mean Corpuscular Hemoglobin 30.6 pg (28.0-32.0); Mean Corpuscular Hgb Conc. 32.9 g/dL (32.0-36.0); Mean Corpuscular Volume 92.9 fL (80.0-100.0); Platelet Count (auto) 332 10^3/uL (140-450); Red Blood Cells 2.97 10^6/uL (4.0-5.20); Red Cell Distribution Width 14.6 % (11.8-14.3); White Blood Cell 7.6 10^3/uL (4.4-10.8)
[2017-09-22 06:26] LABS: Basophils % (manual) 0 (0.0-2.0); Blast Cells 0; Eosinophils % (manual) 0 (0-7); Metamyelocytes % 0; Myelocytes % 0; Promyelocytes % 0; Reactive Lymphocytes 0
[2017-09-22] MEDS: glipiZIDE 5 MG TAB PO SCH ×2 (06:50→19:33)
[2017-09-22 08:34] LABS: Band Neutrophils % (manual) 2; Lymphocytes % (manual) 10 (10.0-50.0); Monocytes % (manual) 8 (0-12)
[2017-09-22] MEDS: ONDANSETRON HCL 4 MG/2 ML VIAL IV PRN (08:35)
[2017-09-22 09:00] VITALS: BP 128/56
[2017-09-22] MEDS: PANTOPRAZOLE 40 MG TAB PO SCH (10:10)
[2017-09-22] MEDS: FERROUS SULFATE 325 MG TAB PO SCH (10:10)
[2017-09-22] MEDS: DOCUSATE SOD 100 MG CAP PO SCH ×2 (10:10→21:23)
[2017-09-22] MEDS: PIOGLITAZONE HYDROCHLORIDE 30 MG TAB PO SCH (10:15)
[2017-09-22] MEDS: ENOXAPARIN SOD 40 MG/0.4 ML SYRINGE SC SCH ×2 (10:16→21:23)
[2017-09-22] MEDS: FLUoxetine HCL 10 MG CAP PO SCH (10:16)
[2017-09-22] MEDS: SILVER SULFADIAZINE 1 % TOPICAL CREAM 50GM TOP SCH (10:17)
[2017-09-22] MEDS: NEOMYCIN-BACITRACIN-POLYM 15GM TOP OINT TOP SCH (10:17)
[2017-09-22 13:00] VITALS: BP 144/74
[2017-09-22] MEDS ORDERED: LACTULOSE 20Gm/30ML SOLN PO PRN (14:30)
[2017-09-22] MEDS ORDERED: DEXTROSE (50%) 50ML SYRG IV PRN (14:30)
[2017-09-22 17:00] VITALS: BP 140/69
[2017-09-22] MEDS: ACCU-CHEK COMFORT CURVE STRIP VI SCH ×2 (19:32→21:23)
[2017-09-22] MEDS: InsuLIN REG 1unit/0.01ml Soln (100units/ml) SC SCH ×2 (19:33→21:28)
[2017-09-22] MEDS: PRAVASTATIN SODIUM 20 MG TAB PO SCH (21:23)
[2017-09-22 21:57] VITALS: BP 122/57
[2017-09-23 05:49] VITALS: BP 118/47
[2017-09-23] MEDS: InsuLIN REG 1unit/0.01ml Soln (100units/ml) SC SCH ×4 (06:46→21:52)
[2017-09-23] MEDS: ACCU-CHEK COMFORT CURVE STRIP VI SCH ×4 (06:46→21:50)
[2017-09-23] MEDS: glipiZIDE 5 MG TAB PO SCH ×3 (06:48→18:26)
[2017-09-23] MEDS: ONDANSETRON HCL 4 MG/2 ML VIAL IV PRN (06:49)
[2017-09-23] MEDS: SODIUM CHLORIDE 0.9% 1,000 ML IV SCH ×2 (07:14→23:50)
[2017-09-23 07:25] LABS: Calcium 8.4 mg/dL (8.5-10.1); Potassium 5.4 mmol/L (3.5-5.1)
[2017-09-23 08:07] LABS: Hematocrit 26.6 % (36.0-46.0); Hemoglobin 8.6 g/dL (12.2-16.2)
[2017-09-23 09:06] VITALS: BP 140/60
[2017-09-23] MEDS: PROMETHAZINE HCL 25 MG/ML 1ML IV PRN (09:33)
[2017-09-23] MEDS: DOCUSATE SOD 100 MG CAP PO SCH ×2 (09:34→21:50)
[2017-09-23] MEDS: FERROUS SULFATE 325 MG TAB PO SCH (09:34)
[2017-09-23] MEDS: FLUoxetine HCL 10 MG CAP PO SCH (09:35)
[2017-09-23] MEDS: PANTOPRAZOLE 40 MG TAB PO SCH (09:35)
[2017-09-23] MEDS: ENOXAPARIN SOD 40 MG/0.4 ML SYRINGE SC SCH ×2 (09:36→21:49)
[2017-09-23] MEDS: SILVER SULFADIAZINE 1 % TOPICAL CREAM 50GM TOP SCH (09:37)
[2017-09-23] MEDS: NEOMYCIN-BACITRACIN-POLYM 15GM TOP OINT TOP SCH (09:37)
[2017-09-23] MEDS ORDERED: MORPHINE SULF INJ 2 MG/ML SYRINGE 1ML IV PRN (10:00)
[2017-09-23] MEDS: PIOGLITAZONE HYDROCHLORIDE 30 MG TAB PO SCH (10:24)
[2017-09-23 13:06] VITALS: BP 129/53
[2017-09-23] MEDS: METOCLOPRAMIDE HCL 5MG/ml INJ 2ml VIAL IV SCH ×2 (13:36→21:49)
[2017-09-23] MEDS ORDERED: ASCORBIC ACID 500 MG TAB PO ONE (17:30)
[2017-09-23] MEDS ORDERED: MULTIPLE VITAMIN TAB PO ONE (17:45)
[2017-09-23 17:46] VITALS: BP 138/58
[2017-09-23] MEDS: Pro-Stat SF 30ml Vanilla PO SCH (18:00)
[2017-09-23] MEDS: PRAVASTATIN SODIUM 20 MG TAB PO SCH (21:50)
[2017-09-23] MEDS: ASCORBIC ACID 500 MG TAB PO SCH (21:50)
[2017-09-23 22:00] VITALS: BP 118/45
[2017-09-24 04:40] VITALS: BP 120/51
[2017-09-24 05:32] LABS: Hematocrit 26.3 % (36.0-46.0); Hemoglobin 8.8 g/dL (12.2-16.2)
[2017-09-24 05:58] LABS: Calcium 8.4 mg/dL (8.5-10.1); Magnesium 2.4 mg/dL (1.6-2.6); Potassium 4.9 mmol/L (3.5-5.1)
[2017-09-24] MEDS: METOCLOPRAMIDE HCL 5MG/ml INJ 2ml VIAL IV SCH ×3 (06:12→22:00)
[2017-09-24] MEDS: ACCU-CHEK COMFORT CURVE STRIP VI SCH ×4 (06:22→22:15)
[2017-09-24] MEDS: InsuLIN REG 1unit/0.01ml Soln (100units/ml) SC SCH ×4 (06:22→22:25)
[2017-09-24] MEDS: glipiZIDE 5 MG TAB PO SCH ×2 (07:00→18:00)
[2017-09-24] MEDS: HYDROcodone-ACET 7.5/325MG TAB PO PRN ×2 (08:04→14:10)
[2017-09-24] MEDS ORDERED: MORPHINE SULFATE 4 MG/ML SYR/VIAL IV PRN (08:45)
[2017-09-24 09:02] VITALS: BP 125/51
[2017-09-24] MEDS: Pro-Stat SF 30ml Vanilla PO SCH ×2 (09:13→18:00)
[2017-09-24] MEDS: MORPHINE SULF INJ 2 MG/ML SYRINGE 1ML IV PRN ×3 (09:15→16:35)
[2017-09-24] MEDS: ASCORBIC ACID 500 MG TAB PO SCH ×2 (10:00→22:14)
[2017-09-24] MEDS: DOCUSATE SOD 100 MG CAP PO SCH ×2 (10:00→22:00)
[2017-09-24] MEDS: NEOMYCIN-BACITRACIN-POLYM 15GM TOP OINT TOP SCH (10:00)
[2017-09-24] MEDS: SILVER SULFADIAZINE 1 % TOPICAL CREAM 50GM TOP SCH (10:00)
[2017-09-24] MEDS: FLUoxetine HCL 10 MG CAP PO SCH (10:00)
[2017-09-24] MEDS: FERROUS SULFATE 325 MG TAB PO SCH (10:57)
[2017-09-24] MEDS: ENOXAPARIN SOD 40 MG/0.4 ML SYRINGE SC SCH ×2 (10:57→22:15)
[2017-09-24] MEDS: PANTOPRAZOLE 40 MG TAB PO SCH (10:57)
[2017-09-24] MEDS: MULTIPLE VITAMIN TAB PO SCH (10:58)
[2017-09-24] MEDS: GABAPENTIN 400 MG CAP PO SCH ×2 (10:58→22:15)
[2017-09-24] MEDS: PIOGLITAZONE HYDROCHLORIDE 30 MG TAB PO SCH (10:58)
[2017-09-24] MEDS: PROMETHAZINE HCL 25 MG/ML 1ML IV PRN (12:21)
[2017-09-24 12:34] VITALS: BP 134/54
[2017-09-24] MEDS: SODIUM CHLORIDE 0.9% 1,000 ML IV SCH (16:30)
[2017-09-24 16:34] VITALS: BP 152/72
[2017-09-24 21:30] VITALS: BP 147/67
[2017-09-24] MEDS: PRAVASTATIN SODIUM 20 MG TAB PO SCH (22:14)
[2017-09-25 05:00] VITALS: BP 149/74
[2017-09-25] MEDS: METOCLOPRAMIDE HCL 5MG/ml INJ 2ml VIAL IV SCH ×3 (05:45→21:35)
[2017-09-25] MEDS: ACCU-CHEK COMFORT CURVE STRIP VI SCH ×4 (06:13→21:34)
[2017-09-25] MEDS: InsuLIN REG 1unit/0.01ml Soln (100units/ml) SC SCH ×4 (06:14→21:35)
[2017-09-25] MEDS: glipiZIDE 5 MG TAB PO SCH ×2 (07:00→17:58)
[2017-09-25 09:00] VITALS: BP 145/69
[2017-09-25] MEDS: ENOXAPARIN SOD 40 MG/0.4 ML SYRINGE SC SCH ×2 (09:21→21:34)
[2017-09-25] MEDS: GABAPENTIN 400 MG CAP PO SCH ×2 (09:22→21:33)
[2017-09-25] MEDS: ASCORBIC ACID 500 MG TAB PO SCH ×2 (09:22→21:33)
[2017-09-25] MEDS: PIOGLITAZONE HYDROCHLORIDE 30 MG TAB PO SCH (09:22)
[2017-09-25] MEDS: FLUoxetine HCL 10 MG CAP PO SCH (09:22)
[2017-09-25] MEDS: PANTOPRAZOLE 40 MG TAB PO SCH (09:23)
[2017-09-25] MEDS: FERROUS SULFATE 325 MG TAB PO SCH (09:23)
[2017-09-25] MEDS: MULTIPLE VITAMIN TAB PO SCH (09:23)
[2017-09-25] MEDS: SODIUM CHLORIDE 0.9% 1,000 ML IV SCH ×2 (09:25→15:35)
[2017-09-25] MEDS: DOCUSATE SOD 100 MG CAP PO SCH ×2 (09:25→21:35)
[2017-09-25] MEDS: HYDROcodone-ACET 7.5/325MG TAB PO PRN ×2 (12:16→16:30)
[2017-09-25 12:59] VITALS: BP 140/67
[2017-09-25] MEDS: NEOMYCIN-BACITRACIN-POLYM 15GM TOP OINT TOP SCH (15:35)
[2017-09-25] MEDS: Pro-Stat SF 30ml Vanilla PO SCH ×2 (15:35→18:04)
[2017-09-25] MEDS: SILVER SULFADIAZINE 1 % TOPICAL CREAM 50GM TOP SCH (15:36)
[2017-09-25 17:00] VITALS: BP 138/66
[2017-09-25] MEDS: PRAVASTATIN SODIUM 20 MG TAB PO SCH (21:33)
[2017-09-25 21:50] VITALS: BP 151/53
[2017-09-26 05:11] VITALS: BP 141/65
[2017-09-26] MEDS: SODIUM CHLORIDE 0.9% 1,000 ML IV SCH (05:26)
[2017-09-26] MEDS: METOCLOPRAMIDE HCL 5MG/ml INJ 2ml VIAL IV SCH ×3 (06:00→21:27)
[2017-09-26 06:03] LABS: BUN/Creatinine Ratio 18.8; Calcium 8.3 mg/dL (8.5-10.1); Potassium 4.3 mmol/L (3.5-5.1)
[2017-09-26] MEDS: glipiZIDE 5 MG TAB PO SCH ×2 (06:16→18:53)
[2017-09-26] MEDS: ACCU-CHEK COMFORT CURVE STRIP VI SCH ×4 (06:17→21:36)
[2017-09-26] MEDS: InsuLIN REG 1unit/0.01ml Soln (100units/ml) SC SCH ×4 (06:17→21:36)
[2017-09-26] MEDS ORDERED: FUROSEMIDE 20 MG/2 ML VIAL IV ONE (08:30)
[2017-09-26 09:00] VITALS: BP 147/71
[2017-09-26] MEDS: GABAPENTIN 400 MG CAP PO SCH ×2 (09:32→21:27)
[2017-09-26] MEDS: MULTIPLE VITAMIN TAB PO SCH (09:32)
[2017-09-26] MEDS: PANTOPRAZOLE 40 MG TAB PO SCH (09:32)
[2017-09-26] MEDS: PIOGLITAZONE HYDROCHLORIDE 30 MG TAB PO SCH (09:32)
[2017-09-26] MEDS: ENOXAPARIN SOD 40 MG/0.4 ML SYRINGE SC SCH (09:32)
[2017-09-26] MEDS: ASCORBIC ACID 500 MG TAB PO SCH ×2 (09:32→21:27)
[2017-09-26] MEDS: FERROUS SULFATE 325 MG TAB PO SCH (09:34)
[2017-09-26] MEDS: FLUoxetine HCL 10 MG CAP PO SCH (09:35)
[2017-09-26] MEDS: DOCUSATE SOD 100 MG CAP PO SCH ×2 (10:00→21:27)
[2017-09-26] MEDS ORDERED: IPRATROPIUM BROM 0.5 MG/2.5ML INH SOL NEB PRN (10:30)
[2017-09-26] MEDS ORDERED: ALBUTEROL SULF 2.5 MG/0.5ML(0.5%) NEB SOLN NEB PRN (10:30)
[2017-09-26] MEDS: Pro-Stat SF 30ml Vanilla PO SCH ×2 (11:49→18:00)
[2017-09-26] MEDS: SILVER SULFADIAZINE 1 % TOPICAL CREAM 50GM TOP SCH (11:50)
[2017-09-26] MEDS: NEOMYCIN-BACITRACIN-POLYM 15GM TOP OINT TOP SCH (11:50)
[2017-09-26 13:00] VITALS: BP 133/61
[2017-09-26 15:23] VITALS: BP 133/61
[2017-09-26 17:00] VITALS: BP 107/71
[2017-09-26] MEDS: HYDROcodone-ACET 7.5/325MG TAB PO PRN ×2 (18:15→18:56)
[2017-09-26] MEDS: PRAVASTATIN SODIUM 20 MG TAB PO SCH (21:27)
[2017-09-26 21:57] VITALS: BP 126/62
[2017-09-27 05:09] VITALS: BP 138/60
[2017-09-27 05:34] LABS: Hematocrit 27.8 % (36.0-46.0)
[2017-09-27] MEDS: METOCLOPRAMIDE HCL 5MG/ml INJ 2ml VIAL IV SCH ×3 (06:00→22:00)
[2017-09-27] MEDS: glipiZIDE 5 MG TAB PO SCH ×2 (06:22→17:45)
[2017-09-27] MEDS: ACCU-CHEK COMFORT CURVE STRIP VI SCH ×4 (06:23→22:51)
[2017-09-27] MEDS: InsuLIN REG 1unit/0.01ml Soln (100units/ml) SC SCH ×4 (06:23→22:00)
[2017-09-27 09:00] VITALS: BP 170/71
[2017-09-27] MEDS: DOCUSATE SOD 100 MG CAP PO SCH ×2 (10:00→22:00)
[2017-09-27] MEDS: SILVER SULFADIAZINE 1 % TOPICAL CREAM 50GM TOP SCH (10:00)
[2017-09-27] MEDS: MULTIPLE VITAMIN TAB PO SCH (10:00)
[2017-09-27] MEDS: ENOXAPARIN SOD 40 MG/0.4 ML SYRINGE SC SCH (10:45)
[2017-09-27] MEDS: GABAPENTIN 400 MG CAP PO SCH ×2 (10:45→23:00)
[2017-09-27] MEDS: FLUoxetine HCL 10 MG CAP PO SCH (10:45)
[2017-09-27] MEDS: ASCORBIC ACID 500 MG TAB PO SCH ×2 (10:45→23:01)
[2017-09-27] MEDS: PANTOPRAZOLE 40 MG TAB PO SCH (10:45)
[2017-09-27] MEDS: Pro-Stat SF 30ml Vanilla PO SCH ×2 (11:20→18:43)
[2017-09-27] MEDS: FERROUS SULFATE 325 MG TAB PO SCH (11:20)
[2017-09-27] MEDS ORDERED: MORPHINE SULF INJ 2 MG/ML SYRINGE 1ML IV PRN (11:30)
[2017-09-27] MEDS: NEOMYCIN-BACITRACIN-POLYM 15GM TOP OINT TOP SCH (12:00)
[2017-09-27] MEDS: HYDROcodone-ACET 7.5/325MG TAB PO PRN (12:15)
[2017-09-27 13:00] VITALS: BP 145/57
[2017-09-27] MEDS ORDERED: FUROSEMIDE 40 MG/4 ML VIAL IV ONE (13:15)
[2017-09-27] MEDS ORDERED: POTASSIUM CHL 20 Meq TABLET PO ONE (13:15)
[2017-09-27] MEDS ORDERED: LABETALOL HCL 5 MG/ML ML 20ML VIAL IV PRN (13:15)
[2017-09-27 17:00] VITALS: BP 135/57
[2017-09-27 22:00] VITALS: BP 148/70
[2017-09-27] MEDS: PRAVASTATIN SODIUM 20 MG TAB PO SCH (23:01)
[2017-09-28 05:00] VITALS: BP 161/68
[2017-09-28] MEDS: METOCLOPRAMIDE HCL 5MG/ml INJ 2ml VIAL IV SCH ×3 (05:33→21:27)
[2017-09-28] MEDS: InsuLIN REG 1unit/0.01ml Soln (100units/ml) SC SCH ×4 (06:50→21:28)
[2017-09-28] MEDS: ACCU-CHEK COMFORT CURVE STRIP VI SCH ×4 (06:50→21:28)
[2017-09-28] MEDS: glipiZIDE 5 MG TAB PO SCH ×2 (06:51→17:50)
[2017-09-28] MEDS: HYDROcodone-ACET 7.5/325MG TAB PO PRN ×4 (07:35→21:22)
[2017-09-28] MEDS: Pro-Stat SF 30ml Vanilla PO SCH ×2 (08:00→17:50)
[2017-09-28 09:00] VITALS: BP 143/64
[2017-09-28] MEDS: DOCUSATE SOD 100 MG CAP PO SCH ×2 (10:00→21:27)
[2017-09-28] MEDS: ENOXAPARIN SOD 40 MG/0.4 ML SYRINGE SC SCH (10:08)
[2017-09-28] MEDS: ASCORBIC ACID 500 MG TAB PO SCH ×2 (10:09→21:23)
[2017-09-28] MEDS: GABAPENTIN 400 MG CAP PO SCH ×2 (10:09→21:23)
[2017-09-28] MEDS: MULTIPLE VITAMIN TAB PO SCH (10:09)
[2017-09-28] MEDS: PANTOPRAZOLE 40 MG TAB PO SCH (10:09)
[2017-09-28] MEDS: FERROUS SULFATE 325 MG TAB PO SCH (10:09)
[2017-09-28] MEDS: FLUoxetine HCL 10 MG CAP PO SCH (10:10)
[2017-09-28] MEDS: SILVER SULFADIAZINE 1 % TOPICAL CREAM 50GM TOP SCH (10:10)
[2017-09-28] MEDS: NEOMYCIN-BACITRACIN-POLYM 15GM TOP OINT TOP SCH (10:10)
[2017-09-28] MEDS ORDERED: FUROSEMIDE 40 MG/4 ML VIAL IV ONE (11:30)
[2017-09-28] MEDS ORDERED: POTASSIUM CHL 10 Meq TABLET PO ONE (11:30)
[2017-09-28 13:00] VITALS: BP 149/71
[2017-09-28 17:00] VITALS: BP 144/65
[2017-09-28] MEDS ORDERED: HYDROmorphone HCL 2 MG/ML VL IV ONE (18:15)
[2017-09-28] MEDS: TEMAZEPAM 15 MG CAP PO PRN (21:23)
[2017-09-28] MEDS: PRAVASTATIN SODIUM 20 MG TAB PO SCH (21:23)
[2017-09-28 22:00] VITALS: BP 148/66
[2017-09-29 05:23] VITALS: BP 130/59
[2017-09-29 05:51] LABS: Basophils # (auto) 0 uL; Basophils % (auto) 0.7 % (0.0-2.0); Eosinophils # (auto) 0.2 uL; Eosinophils % (auto) 3.4 % (0.0-7.0); Hematocrit 29.4 % (36.0-46.0); Hemoglobin 9.9 g/dL (12.2-16.2); Lymphocytes # (auto) 1.8 uL; Lymphocytes % (auto) 30.1 % (10.0-50.0); Mean Corpuscular Hemoglobin 31.1 pg (28.0-32.0); Mean Corpuscular Hgb Conc. 33.5 g/dL (32.0-36.0); Mean Corpuscular Volume 92.7 fL (80.0-100.0); Monocytes # (auto) 0.5 uL; Monocytes % (auto) 8.4 % (0.0-12.0); Neutrophils # (auto) 3.5 uL; Neutrophils % (auto) 57.4 % (37.0-80.0); Nucleated Red Blood Cells % 0.1 %; Platelet Count (auto) 350 10^3/uL (140-450); Red Blood Cells 3.17 10^6/uL (4.0-5.20); Red Cell Distribution Width 14.8 % (11.8-14.3)
[2017-09-29 05:55] LABS: Calcium 8.1 mg/dL (8.5-10.1); Magnesium 1.6 mg/dL (1.6-2.6)
[2017-09-29 05:57] LABS: BUN/Creatinine Ratio 10.5
[2017-09-29] MEDS: METOCLOPRAMIDE HCL 5MG/ml INJ 2ml VIAL IV SCH ×3 (06:00→22:00)
[2017-09-29] MEDS: glipiZIDE 5 MG TAB PO SCH ×2 (06:13→18:00)
[2017-09-29] MEDS: InsuLIN REG 1unit/0.01ml Soln (100units/ml) SC SCH ×4 (06:14→22:37)
[2017-09-29] MEDS: ACCU-CHEK COMFORT CURVE STRIP VI SCH ×4 (06:14→22:38)
[2017-09-29 08:00] VITALS: BP 127/60
[2017-09-29 08:29] VITALS: BP 130/59
[2017-09-29] MEDS: DOCUSATE SOD 100 MG CAP PO SCH ×2 (10:00→22:00)
[2017-09-29] MEDS: MULTIPLE VITAMIN TAB PO SCH (10:59)
[2017-09-29] MEDS: FLUoxetine HCL 10 MG CAP PO SCH (10:59)
[2017-09-29] MEDS: FERROUS SULFATE 325 MG TAB PO SCH (11:00)
[2017-09-29] MEDS: PANTOPRAZOLE 40 MG TAB PO SCH (11:00)
[2017-09-29] MEDS: ASCORBIC ACID 500 MG TAB PO SCH ×2 (11:00→22:37)
[2017-09-29] MEDS: GABAPENTIN 400 MG CAP PO SCH ×2 (11:00→22:36)
[2017-09-29] MEDS: ENOXAPARIN SOD 40 MG/0.4 ML SYRINGE SC SCH (11:01)
[2017-09-29] MEDS: Pro-Stat SF 30ml Vanilla PO SCH ×2 (11:03→18:00)
[2017-09-29] MEDS: SILVER SULFADIAZINE 1 % TOPICAL CREAM 50GM TOP SCH (11:04)
[2017-09-29] MEDS: NEOMYCIN-BACITRACIN-POLYM 15GM TOP OINT TOP SCH (11:04)
[2017-09-29 13:00] VITALS: BP 142/66
[2017-09-29] MEDS ORDERED: HYDROcodone-ACET 7.5/325MG TAB PO PRN (14:15)
[2017-09-29] MEDS ORDERED: FUROSEMIDE 40 MG/4 ML VIAL IV ONE (14:15)
[2017-09-29] MEDS ORDERED: MAGNESIUM SULFATE 1GM/100ML 100 ML IV ONE (14:15)
[2017-09-29] MEDS ORDERED: POTASSIUM CHL 10 Meq TABLET PO ONE (14:15)
[2017-09-29 17:00] VITALS: BP 152/77
[2017-09-29 22:00] VITALS: BP 139/65
[2017-09-29] MEDS: PRAVASTATIN SODIUM 20 MG TAB PO SCH (22:35)
[2017-09-29] MEDS: TEMAZEPAM 15 MG CAP PO PRN (22:36)
[2017-09-30] MEDS: METOCLOPRAMIDE HCL 5MG/ml INJ 2ml VIAL IV SCH ×3 (05:28→21:49)
[2017-09-30 05:31] VITALS: BP 120/58
[2017-09-30 06:18] LABS: BUN/Creatinine Ratio 13.3; Calcium 7.9 mg/dL (8.5-10.1); Magnesium 1.9 mg/dL (1.6-2.6); Potassium 3.9 mmol/L (3.5-5.1)
[2017-09-30] MEDS: glipiZIDE 5 MG TAB PO SCH ×2 (06:32→18:38)
[2017-09-30] MEDS: ACCU-CHEK COMFORT CURVE STRIP VI SCH ×4 (06:33→21:49)
[2017-09-30] MEDS: InsuLIN REG 1unit/0.01ml Soln (100units/ml) SC SCH ×4 (06:33→21:53)
[2017-09-30] MEDS: Pro-Stat SF 30ml Vanilla PO SCH ×2 (08:00→18:38)
[2017-09-30 08:34] VITALS: BP 117/55
[2017-09-30] MEDS: FLUoxetine HCL 10 MG CAP PO SCH (10:12)
[2017-09-30] MEDS: GABAPENTIN 400 MG CAP PO SCH ×2 (10:12→21:49)
[2017-09-30] MEDS: PANTOPRAZOLE 40 MG TAB PO SCH (10:13)
[2017-09-30] MEDS: MULTIPLE VITAMIN TAB PO SCH (10:13)
[2017-09-30] MEDS: ASCORBIC ACID 500 MG TAB PO SCH ×2 (10:13→21:49)
[2017-09-30] MEDS: FERROUS SULFATE 325 MG TAB PO SCH (10:13)
[2017-09-30] MEDS: ENOXAPARIN SOD 40 MG/0.4 ML SYRINGE SC SCH (10:14)
[2017-09-30] MEDS: NEOMYCIN-BACITRACIN-POLYM 15GM TOP OINT TOP SCH (10:15)
[2017-09-30] MEDS: SILVER SULFADIAZINE 1 % TOPICAL CREAM 50GM TOP SCH (10:16)
[2017-09-30] MEDS: DOCUSATE SOD 100 MG CAP PO SCH ×2 (10:25→21:49)
[2017-09-30 11:46] VITALS: BP 141/76
[2017-09-30] MEDS ORDERED: DOCU100C8 PO (13:37)
[2017-09-30] MEDS ORDERED: FURO40TA PO (13:37)
[2017-09-30] MEDS ORDERED: FER325T PO (13:37)
[2017-09-30] MEDS ORDERED: POTA1TAB61 PO (13:38)
[2017-09-30 17:24] VITALS: BP 122/58
[2017-09-30 21:31] VITALS: BP 153/58
[2017-09-30] MEDS: PRAVASTATIN SODIUM 20 MG TAB PO SCH (21:49)
[2017-10-01 05:02] VITALS: BP 141/60
[2017-10-01] MEDS: METOCLOPRAMIDE HCL 5MG/ml INJ 2ml VIAL IV SCH (06:00)
[2017-10-01] MEDS: ACCU-CHEK COMFORT CURVE STRIP VI SCH ×4 (06:15→21:45)
[2017-10-01] MEDS: InsuLIN REG 1unit/0.01ml Soln (100units/ml) SC SCH ×4 (06:27→21:48)
[2017-10-01] MEDS: glipiZIDE 5 MG TAB PO SCH ×2 (06:27→18:00)
[2017-10-01 09:00] VITALS: BP 135/72
[2017-10-01] MEDS: SILVER SULFADIAZINE 1 % TOPICAL CREAM 50GM TOP SCH (10:00)
[2017-10-01] MEDS: NEOMYCIN-BACITRACIN-POLYM 15GM TOP OINT TOP SCH (10:00)
[2017-10-01] MEDS: DOCUSATE SOD 100 MG CAP PO SCH ×2 (11:25→21:45)
[2017-10-01] MEDS: MULTIPLE VITAMIN TAB PO SCH (11:25)
[2017-10-01] MEDS: Pro-Stat SF 30ml Vanilla PO SCH ×2 (11:25→18:00)
[2017-10-01] MEDS: GABAPENTIN 400 MG CAP PO SCH ×2 (11:25→21:45)
[2017-10-01] MEDS: FERROUS SULFATE 325 MG TAB PO SCH (11:25)
[2017-10-01] MEDS: PANTOPRAZOLE 40 MG TAB PO SCH (11:26)
[2017-10-01] MEDS: FLUoxetine HCL 10 MG CAP PO SCH (11:28)
[2017-10-01] MEDS: ASCORBIC ACID 500 MG TAB PO SCH ×2 (11:29→21:45)
[2017-10-01] MEDS: ENOXAPARIN SOD 40 MG/0.4 ML SYRINGE SC SCH (11:29)
[2017-10-01 13:00] VITALS: BP 141/71
[2017-10-01 17:00] VITALS: BP 138/70
[2017-10-01] MEDS: PRAVASTATIN SODIUM 20 MG TAB PO SCH (21:45)
[2017-10-01 22:00] VITALS: BP 154/53
[2017-10-02 05:00] VITALS: BP 139/63
[2017-10-02] MEDS: ACCU-CHEK COMFORT CURVE STRIP VI SCH ×3 (06:28→17:00)
[2017-10-02] MEDS: InsuLIN REG 1unit/0.01ml Soln (100units/ml) SC SCH ×3 (06:29→17:00)
[2017-10-02] MEDS: glipiZIDE 5 MG TAB PO SCH ×2 (06:29→17:00)
[2017-10-02] MEDS: Pro-Stat SF 30ml Vanilla PO SCH (08:00)
[2017-10-02 08:52] VITALS: BP 133/60
[2017-10-02 08:55] VITALS: BP 133/60
[2017-10-02] MEDS: FERROUS SULFATE 325 MG TAB PO SCH (09:00)
[2017-10-02] MEDS ORDERED: NITR-48 PO (09:04)
[2017-10-02] MEDS: FLUoxetine HCL 10 MG CAP PO SCH (10:00)
[2017-10-02] MEDS: MULTIPLE VITAMIN TAB PO SCH (10:00)
[2017-10-02] MEDS: ENOXAPARIN SOD 40 MG/0.4 ML SYRINGE SC SCH (10:00)
[2017-10-02] MEDS: SILVER SULFADIAZINE 1 % TOPICAL CREAM 50GM TOP SCH (10:00)
[2017-10-02] MEDS: GABAPENTIN 400 MG CAP PO SCH (10:00)
[2017-10-02] MEDS: PANTOPRAZOLE 40 MG TAB PO SCH (10:00)
[2017-10-02] MEDS: NEOMYCIN-BACITRACIN-POLYM 15GM TOP OINT TOP SCH (10:00)
[2017-10-02] MEDS: DOCUSATE SOD 100 MG CAP PO SCH (10:00)
[2017-10-02] MEDS: ASCORBIC ACID 500 MG TAB PO SCH (10:00)
[2017-10-02 13:37] VITALS: BP 138/70
[2017-10-02 13:44] VITALS: BP 138/70
== END 2017-10-02 20:30 | disposition home health service (06) | DRG 935 ==
LOC: TELE-CENTR 23:19
PROVIDERS: ADMIT Family Medicine; ATTEND Internal Medicine
DX: T21.20XA Burn of second degree of trunk, unspecified site, initial encounter (principal); E43 Unspecified severe protein-calorie malnutrition; N17.0 Acute kidney failure with tubular necrosis; M62.82 Rhabdomyolysis; Z68.43 Body mass index [BMI] 50.0-59.9, adult; E66.01 Morbid (severe) obesity due to excess calories; T31.0 Burns involving less than 10% of body surface; E11.22 Type 2 diabetes mellitus with diabetic chronic kidney disease; E11.21 Type 2 diabetes mellitus with diabetic nephropathy; L55.1 Sunburn of second degree; D63.8 Anemia in other chronic diseases classified elsewhere; E78.5 Hyperlipidemia, unspecified; T22.20XA Burn of second degree of shoulder and upper limb, except wrist and hand, unspecified site, initial encounter; E11.42 Type 2 diabetes mellitus with diabetic polyneuropathy; T24.212A Burn of second degree of left thigh, initial encounter; T24.201A Burn of second degree of unspecified site of right lower limb, except ankle and foot, initial encounter; E86.0 Dehydration; I12.9 Hypertensive chronic kidney disease with stage 1 through stage 4 chronic kidney disease, or unspecified chronic kidney disease; K59.00 Constipation, unspecified; N18.3 Chronic kidney disease, stage 3 (moderate); Z82.49 Family history of ischemic heart disease and other diseases of the circulatory system; Z83.3 Family history of diabetes mellitus; Z90.49 Acquired absence of other specified parts of digestive tract
CPT/HCPCS: 36415; 71045; 80048; 80053; 82962; 83735; 84132; 85007; 85014; 85018; 85025; 85027; 85610; 85730; 87081; 93005; 94640; 97163; A6257; J1815; J2405

== ENCOUNTER 2017-10-06 20:59 | Inpatient (IN) | payer OTHER ==
[~2017-10-06] VITALS: Ht 165.1 cm; Wt 123.9 kg
[~2017-10-06 20:59] MED LIST changes: +DOCU100C8 PO; +FER325T PO; +FURO40TA PO; +NITR-48 PO; +POTA1TAB61 PO
[2017-10-06] MEDS ORDERED: DEXTROSE (50%) 50ML SYRG IV PRN (21:15)
[2017-10-06] MEDS ORDERED: MORPHINE SULF INJ 2 MG/ML SYRINGE 1ML IV PRN (21:15)
[2017-10-06] MEDS ORDERED: NITROGLYCERIN 0.4 MG SL TAB SL PRN (21:15)
[2017-10-06] MEDS ORDERED: HYDROcodone-ACET 5/325MG TAB PO PRN (22:45)
[2017-10-06] MEDS ORDERED: cloNIDine HCL 0.1 MG TAB PO PRN (22:45)
[2017-10-06] MEDS ORDERED: ACETAMINOPHEN 500 MG TAB PO PRN (22:45)
[2017-10-07] MEDS: SODIUM CHLORIDE 0.9% 1,000 ML IV SCH ×2 (00:20→10:00)
[2017-10-07] MEDS: GABAPENTIN 400 MG CAP PO SCH ×2 (00:21→21:55)
[2017-10-07] MEDS: cefTAZidime 1 GM in SODIUM CHL 0.9% 50 ML IV SCH ×4 (00:21→21:55)
[2017-10-07] MEDS: InsuLIN REG 1unit/0.01ml Soln (100units/ml) SC SCH ×5 (00:21→22:01)
[2017-10-07] MEDS: ACCU-CHEK COMFORT CURVE STRIP VI SCH ×5 (00:21→22:00)
[2017-10-07 04:52] VITALS: BP 134/57
[2017-10-07] MEDS: glipiZIDE 5 MG TAB PO SCH ×2 (06:56→18:45)
[2017-10-07 09:00] VITALS: BP 144/70
[2017-10-07] MEDS ORDERED: PIOGLITAZONE HYDROCHLORIDE 30 MG TAB PO SCH (10:00)
[2017-10-07] MEDS: FLUoxetine HCL 10 MG CAP PO SCH (10:01)
[2017-10-07] MEDS ORDERED: POTASSIUM CHL 20 Meq TABLET PO ONE (11:15)
[2017-10-07] MEDS ORDERED: FUROSEMIDE 40 MG/4 ML VIAL IV ONE (11:15)
[2017-10-07 12:25] VITALS: BP 152/66
[2017-10-07 16:42] VITALS: BP 125/57
[2017-10-07 21:24] LABS: Urine Bacteria NONE SEEN /hpf (None Seen); Urine Blood Negative /uL (Negative); Urine Specific Gravity 1.006 (1.001-1.035); Urine WBC 3 /hpf (0 - 5)
[2017-10-07 22:00] VITALS: BP 136/61
[2017-10-08 05:30] VITALS: BP 140/62
[2017-10-08] MEDS: glipiZIDE 5 MG TAB PO SCH ×2 (06:17→18:19)
[2017-10-08] MEDS: cefTAZidime 1 GM in SODIUM CHL 0.9% 50 ML IV SCH ×3 (06:17→21:44)
[2017-10-08] MEDS: InsuLIN REG 1unit/0.01ml Soln (100units/ml) SC SCH ×4 (06:18→22:00)
[2017-10-08 06:19] LABS: Basophils # (auto) 0 uL; Basophils % (auto) 0.7 % (0.0-2.0); Eosinophils # (auto) 0.2 uL; Hematocrit 28.4 % (36.0-46.0); Hemoglobin 9.3 g/dL (12.2-16.2); Lymphocytes # (auto) 1.5 uL; Lymphocytes % (auto) 26.8 % (10.0-50.0); Mean Corpuscular Hemoglobin 30.2 pg (28.0-32.0); Mean Corpuscular Hgb Conc. 32.7 g/dL (32.0-36.0); Mean Corpuscular Volume 92.3 fL (80.0-100.0); Monocytes # (auto) 0.5 uL; Monocytes % (auto) 8.6 % (0.0-12.0); Neutrophils # (auto) 3.4 uL; Neutrophils % (auto) 60.9 % (37.0-80.0); Nucleated Red Blood Cells % 0.1 %; Platelet Count (auto) 240 10^3/uL (140-450); Red Blood Cells 3.08 10^6/uL (4.0-5.20); Red Cell Distribution Width 14.6 % (11.8-14.3); White Blood Cell 5.7 10^3/uL (4.4-10.8)
[2017-10-08] MEDS: ACCU-CHEK COMFORT CURVE STRIP VI SCH ×4 (06:19→21:45)
[2017-10-08 06:37] LABS: Albumin 2.1 g/dL (3.4-5.0); BUN/Creatinine Ratio 12.4; Calcium 8.2 mg/dL (8.5-10.1); Potassium 3.7 mmol/L (3.5-5.1)
[2017-10-08 06:40] LABS: Bilirubin, Total 0.2 mg/dL (0.2-1.0); Total Protein 5.6 g/dL (6.4-8.2)
[2017-10-08 09:00] VITALS: BP 159/63
[2017-10-08] MEDS: FUROSEMIDE 40 MG/4 ML VIAL IV SCH (10:37)
[2017-10-08] MEDS: POTASSIUM CHL 20 Meq TABLET PO SCH (10:38)
[2017-10-08] MEDS: FLUoxetine HCL 10 MG CAP PO SCH (10:38)
[2017-10-08 13:00] VITALS: BP 145/72
[2017-10-08] MEDS ORDERED: LEVO25TA6 PO (16:34)
[2017-10-08 17:00] VITALS: BP 151/57
[2017-10-08 21:30] VITALS: BP 155/63
[2017-10-08] MEDS: GABAPENTIN 400 MG CAP PO SCH (21:45)
[2017-10-09 05:00] VITALS: BP 119/81
[2017-10-09] MEDS: cefTAZidime 1 GM in SODIUM CHL 0.9% 50 ML IV SCH ×3 (06:19→22:24)
[2017-10-09] MEDS: InsuLIN REG 1unit/0.01ml Soln (100units/ml) SC SCH ×5 (06:19→22:34)
[2017-10-09] MEDS: ACCU-CHEK COMFORT CURVE STRIP VI SCH ×4 (06:19→22:25)
[2017-10-09] MEDS: glipiZIDE 5 MG TAB PO SCH ×2 (06:20→17:59)
[2017-10-09 06:22] LABS: Basophils # (auto) 0 uL; Basophils % (auto) 0.6 % (0.0-2.0); Eosinophils # (auto) 0.2 uL; Eosinophils % (auto) 3.5 % (0.0-7.0); Hematocrit 29.6 % (36.0-46.0); Hemoglobin 9.8 g/dL (12.2-16.2); Lymphocytes # (auto) 1.6 uL; Lymphocytes % (auto) 29.3 % (10.0-50.0); Mean Corpuscular Hemoglobin 30.9 pg (28.0-32.0); Mean Corpuscular Hgb Conc. 33.3 g/dL (32.0-36.0); Mean Corpuscular Volume 92.8 fL (80.0-100.0); Monocytes # (auto) 0.6 uL; Monocytes % (auto) 10.4 % (0.0-12.0); Neutrophils # (auto) 3.1 uL; Neutrophils % (auto) 56.2 % (37.0-80.0); Platelet Count (auto) 222 10^3/uL (140-450); Red Blood Cells 3.19 10^6/uL (4.0-5.20); Red Cell Distribution Width 14.8 % (11.8-14.3); White Blood Cell 5.6 10^3/uL (4.4-10.8)
[2017-10-09 06:40] LABS: BUN/Creatinine Ratio 11.8; Calcium 8.8 mg/dL (8.5-10.1); Magnesium 1.6 mg/dL (1.6-2.6); Potassium 3.4 mmol/L (3.5-5.1)
[2017-10-09 08:00] VITALS: BP 137/56
[2017-10-09] MEDS: FUROSEMIDE 40 MG/4 ML VIAL IV SCH (09:37)
[2017-10-09] MEDS: POTASSIUM CHL 20 Meq TABLET PO SCH (09:38)
[2017-10-09] MEDS: FLUoxetine HCL 10 MG CAP PO SCH (09:38)
[2017-10-09] MEDS ORDERED: POTASSIUM CHL 20 Meq TABLET PO ONE (11:30)
[2017-10-09] MEDS ORDERED: MAGNESIUM SULFATE 1GM/100ML 100 ML IV ONE (11:30)
[2017-10-09] MEDS ORDERED: DEXTROSE (50%) 50ML SYRG IV PRN (11:30)
[2017-10-09 12:00] VITALS: BP 155/71
[2017-10-09] MEDS: ONDANSETRON HCL 4 MG/2 ML VIAL IV PRN ×2 (12:18→18:00)
[2017-10-09 16:00] VITALS: BP 135/57
[2017-10-09 21:30] VITALS: BP 131/57
[2017-10-09] MEDS: GABAPENTIN 400 MG CAP PO SCH (22:24)
[2017-10-10 05:00] VITALS: BP 132/58
[2017-10-10] MEDS: cefTAZidime 1 GM in SODIUM CHL 0.9% 50 ML IV SCH (06:15)
[2017-10-10] MEDS: InsuLIN REG 1unit/0.01ml Soln (100units/ml) SC SCH ×5 (06:15→22:00)
[2017-10-10] MEDS: ACCU-CHEK COMFORT CURVE STRIP VI SCH ×4 (06:15→22:00)
[2017-10-10] MEDS: glipiZIDE 5 MG TAB PO SCH ×2 (06:15→17:46)
[2017-10-10 06:31] LABS: Potassium 3.6 mmol/L (3.5-5.1)
[2017-10-10 06:39] LABS: Magnesium 1.9 mg/dL (1.6-2.6)
[2017-10-10 09:00] VITALS: BP 133/54
[2017-10-10] MEDS: FUROSEMIDE 40 MG/4 ML VIAL IV SCH (10:43)
[2017-10-10] MEDS: FLUoxetine HCL 10 MG CAP PO SCH (10:44)
[2017-10-10] MEDS: POTASSIUM CHL 20 Meq TABLET PO SCH (10:44)
[2017-10-10 13:00] VITALS: BP 153/69
[2017-10-10] MEDS ORDERED: FLUCONAZOLE 200MG/100ML 100 ML IV ONE (13:15)
[2017-10-10] MEDS ORDERED: HYDROcodone-ACET 5/325MG TAB PO PRN (13:15)
[2017-10-10] MEDS ORDERED: MAGNESIUM SULFATE 1GM/100ML 100 ML IV ONE (13:15)
[2017-10-10] MEDS: LINEZOLID 600MG/300ML 300 ML IV SCH (15:19)
[2017-10-10 17:00] VITALS: BP 149/75
[2017-10-10 21:50] VITALS: BP 158/78
[2017-10-10] MEDS: GABAPENTIN 400 MG CAP PO SCH (22:00)
[2017-10-11] MEDS: LINEZOLID 600MG/300ML 300 ML IV SCH ×2 (02:21→14:47)
[2017-10-11 04:50] VITALS: BP 139/72
[2017-10-11] MEDS: ACCU-CHEK COMFORT CURVE STRIP VI SCH ×4 (06:31→21:33)
[2017-10-11] MEDS: InsuLIN REG 1unit/0.01ml Soln (100units/ml) SC SCH ×5 (06:32→21:45)
[2017-10-11] MEDS: glipiZIDE 5 MG TAB PO SCH ×2 (06:32→18:11)
[2017-10-11 09:00] VITALS: BP 149/79
[2017-10-11] MEDS: FLUoxetine HCL 10 MG CAP PO SCH (10:15)
[2017-10-11] MEDS: POTASSIUM CHL 20 Meq TABLET PO SCH (10:15)
[2017-10-11] MEDS: FUROSEMIDE 40 MG/4 ML VIAL IV SCH (10:16)
[2017-10-11] MEDS: ONDANSETRON HCL 4 MG/2 ML VIAL IV PRN ×2 (10:22→18:16)
[2017-10-11] MEDS: FLUCONAZOLE 200MG/100ML 100 ML IV SCH (12:54)
[2017-10-11 13:00] VITALS: BP 156/80
[2017-10-11 17:00] VITALS: BP 157/80
[2017-10-11] MEDS: GABAPENTIN 400 MG CAP PO SCH (21:32)
[2017-10-11 22:00] VITALS: BP 156/82
[2017-10-12] MEDS: LINEZOLID 600MG/300ML 300 ML IV SCH ×2 (02:06→14:56)
[2017-10-12 05:00] VITALS: BP_SYST 14; BP_SYST 140; BP_DIAS 71
[2017-10-12] MEDS: InsuLIN REG 1unit/0.01ml Soln (100units/ml) SC SCH ×5 (06:34→23:35)
[2017-10-12] MEDS: ACCU-CHEK COMFORT CURVE STRIP VI SCH ×4 (06:34→22:29)
[2017-10-12] MEDS: glipiZIDE 5 MG TAB PO SCH ×2 (06:34→17:43)
[2017-10-12 06:49] LABS: Basophils # (auto) 0 uL; Basophils % (auto) 0.6 % (0.0-2.0); Eosinophils # (auto) 0.2 uL; Eosinophils % (auto) 3.9 % (0.0-7.0); Hemoglobin 10.1 g/dL (12.2-16.2); Lymphocytes % (auto) 35.5 % (10.0-50.0); Mean Corpuscular Hemoglobin 30.8 pg (28.0-32.0); Mean Corpuscular Hgb Conc. 33.6 g/dL (32.0-36.0); Mean Corpuscular Volume 91.7 fL (80.0-100.0); Monocytes # (auto) 0.6 uL; Monocytes % (auto) 11.5 % (0.0-12.0); Neutrophils # (auto) 2.7 uL; Neutrophils % (auto) 48.5 % (37.0-80.0); Nucleated Red Blood Cells % 0.2 %; Platelet Count (auto) 218 10^3/uL (140-450); Red Blood Cells 3.27 10^6/uL (4.0-5.20); Red Cell Distribution Width 14.4 % (11.8-14.3); White Blood Cell 5.6 10^3/uL (4.4-10.8)
[2017-10-12 07:00] LABS: % Iron Saturation 27.9 % (15-50)
[2017-10-12 09:00] VITALS: BP 127/62
[2017-10-12] MEDS: POTASSIUM CHL 20 Meq TABLET PO SCH (09:47)
[2017-10-12] MEDS: FLUoxetine HCL 10 MG CAP PO SCH (09:47)
[2017-10-12] MEDS: FUROSEMIDE 40 MG/4 ML VIAL IV SCH (09:47)
[2017-10-12] MEDS: ONDANSETRON HCL 4 MG/2 ML VIAL IV PRN (09:54)
[2017-10-12] MEDS: FLUCONAZOLE 200MG/100ML 100 ML IV SCH (11:51)
[2017-10-12 13:00] VITALS: BP 135/74
[2017-10-12 17:00] VITALS: BP 154/67
[2017-10-12 22:00] VITALS: BP 130/66
[2017-10-12] MEDS: GABAPENTIN 400 MG CAP PO SCH (22:29)
[2017-10-13] MEDS: LINEZOLID 600MG/300ML 300 ML IV SCH ×2 (01:57→15:04)
[2017-10-13 06:00] VITALS: BP 134/60
[2017-10-13] MEDS: InsuLIN REG 1unit/0.01ml Soln (100units/ml) SC SCH ×5 (07:00→21:32)
[2017-10-13] MEDS: ACCU-CHEK COMFORT CURVE STRIP VI SCH ×4 (07:09→21:23)
[2017-10-13] MEDS: glipiZIDE 5 MG TAB PO SCH ×2 (07:09→18:14)
[2017-10-13 09:00] VITALS: BP 114/61
[2017-10-13 09:07] LABS: BUN/Creatinine Ratio 12.3; Calcium 8.9 mg/dL (8.5-10.1); Potassium 4.1 mmol/L (3.5-5.1)
[2017-10-13] MEDS: FLUoxetine HCL 10 MG CAP PO SCH (10:05)
[2017-10-13] MEDS: FUROSEMIDE 20 MG TAB PO SCH (10:06)
[2017-10-13] MEDS ORDERED: FLUC200T35 PO (10:47)
[2017-10-13] MEDS ORDERED: LINE600T PO (10:47)
[2017-10-13] MEDS: FLUCONAZOLE 200MG/100ML 100 ML IV SCH (12:15)
[2017-10-13 17:00] VITALS: BP 152/67
[2017-10-13] MEDS: GABAPENTIN 400 MG CAP PO SCH (21:22)
[2017-10-13 21:38] VITALS: BP 146/66
[2017-10-14] MEDS: LINEZOLID 600MG/300ML 300 ML IV SCH (02:22)
[2017-10-14 05:11] VITALS: BP 132/57
[2017-10-14 05:53] LABS: Basophils # (auto) 0 uL; Basophils % (auto) 0.7 % (0.0-2.0); Eosinophils # (auto) 0.2 uL; Eosinophils % (auto) 2.9 % (0.0-7.0); Hematocrit 30.8 % (36.0-46.0); Hemoglobin 10.2 g/dL (12.2-16.2); Lymphocytes # (auto) 2.2 uL; Lymphocytes % (auto) 33.9 % (10.0-50.0); Mean Corpuscular Hemoglobin 30.7 pg (28.0-32.0); Mean Corpuscular Hgb Conc. 33.1 g/dL (32.0-36.0); Mean Corpuscular Volume 92.9 fL (80.0-100.0); Monocytes # (auto) 0.7 uL; Monocytes % (auto) 10.2 % (0.0-12.0); Neutrophils # (auto) 3.4 uL; Neutrophils % (auto) 52.3 % (37.0-80.0); Nucleated Red Blood Cells % 0.1 %; Platelet Count (auto) 213 10^3/uL (140-450); Red Blood Cells 3.32 10^6/uL (4.0-5.20); Red Cell Distribution Width 14.6 % (11.8-14.3); White Blood Cell 6.5 10^3/uL (4.4-10.8)
[2017-10-14] MEDS: InsuLIN REG 1unit/0.01ml Soln (100units/ml) SC SCH ×4 (05:56→21:43)
[2017-10-14] MEDS: ACCU-CHEK COMFORT CURVE STRIP VI SCH ×4 (05:56→21:43)
[2017-10-14 06:09] LABS: BUN/Creatinine Ratio 11.3; Calcium 8.9 mg/dL (8.5-10.1); Potassium 4.1 mmol/L (3.5-5.1)
[2017-10-14] MEDS: glipiZIDE 5 MG TAB PO SCH ×2 (06:12→18:37)
[2017-10-14 09:00] VITALS: BP 130/54
[2017-10-14] MEDS: FLUoxetine HCL 10 MG CAP PO SCH (10:59)
[2017-10-14] MEDS: FUROSEMIDE 20 MG TAB PO SCH (11:00)
[2017-10-14] MEDS: FLUCONAZOLE 200MG/100ML 100 ML IV SCH (11:44)
[2017-10-14 13:00] VITALS: BP_SYST 130; BP_SYST 137; BP_DIAS 54; BP_DIAS 64
[2017-10-14 16:57] VITALS: BP 154/60
[2017-10-14] MEDS: LINEZOLID 600MG TABLET PO SCH (18:43)
[2017-10-14] MEDS: GABAPENTIN 400 MG CAP PO SCH (21:28)
[2017-10-14 21:38] VITALS: BP 146/68
[2017-10-15] MEDS ORDERED: HYDROcodone-ACET 5/325MG TAB PO ONE (00:30)
[2017-10-15 04:42] VITALS: BP 144/62
[2017-10-15] MEDS: LINEZOLID 600MG TABLET PO SCH ×2 (06:00→18:01)
[2017-10-15] MEDS: InsuLIN REG 1unit/0.01ml Soln (100units/ml) SC SCH ×4 (06:19→21:25)
[2017-10-15] MEDS: ACCU-CHEK COMFORT CURVE STRIP VI SCH ×4 (06:19→21:20)
[2017-10-15] MEDS: glipiZIDE 5 MG TAB PO SCH ×2 (06:19→18:00)
[2017-10-15 09:00] VITALS: BP 144/55
[2017-10-15] MEDS: FLUCONAZOLE 100 MG TAB PO SCH (10:53)
[2017-10-15] MEDS: FLUoxetine HCL 10 MG CAP PO SCH (10:53)
[2017-10-15] MEDS: FUROSEMIDE 20 MG TAB PO SCH (10:54)
[2017-10-15 13:00] VITALS: BP 152/63
[2017-10-15 16:53] VITALS: BP 144/79
[2017-10-15] MEDS: GABAPENTIN 400 MG CAP PO SCH (21:20)
[2017-10-15 21:43] VITALS: BP 142/62
[2017-10-16 05:00] VITALS: BP 152/57
[2017-10-16] MEDS: LINEZOLID 600MG TABLET PO SCH (06:07)
[2017-10-16] MEDS: ACCU-CHEK COMFORT CURVE STRIP VI SCH ×2 (06:08→11:30)
[2017-10-16] MEDS: InsuLIN REG 1unit/0.01ml Soln (100units/ml) SC SCH ×2 (06:14→11:30)
[2017-10-16] MEDS: glipiZIDE 5 MG TAB PO SCH (06:15)
[2017-10-16 09:04] VITALS: BP 137/51
[2017-10-16] MEDS: FUROSEMIDE 20 MG TAB PO SCH (10:07)
[2017-10-16] MEDS: FLUoxetine HCL 10 MG CAP PO SCH (10:08)
[2017-10-16] MEDS: FLUCONAZOLE 100 MG TAB PO SCH (10:08)
[2017-10-16 11:05] VITALS: BP 137/51
[2017-10-16 12:19] VITALS: BP 154/72
== END 2017-10-16 14:12 | disposition home health service (06) | DRG 757 ==
LOC: WEST WING 20:59 → TELE-WESTW 21:50 → WEST WING 10-07 18:47
PROVIDERS: ADMIT Family Medicine; ATTEND Internal Medicine
DX: B37.49 Other urogenital candidiasis (principal); I50.33 Acute on chronic diastolic (congestive) heart failure; E44.0 Moderate protein-calorie malnutrition; Z68.42 Body mass index [BMI] 45.0-49.9, adult; B96.89 Other specified bacterial agents as the cause of diseases classified elsewhere; D64.9 Anemia, unspecified; E11.21 Type 2 diabetes mellitus with diabetic nephropathy; E11.22 Type 2 diabetes mellitus with diabetic chronic kidney disease; E55.9 Vitamin D deficiency, unspecified; E66.01 Morbid (severe) obesity due to excess calories; E78.5 Hyperlipidemia, unspecified; N18.3 Chronic kidney disease, stage 3 (moderate); Z16.21 Resistance to vancomycin; E11.42 Type 2 diabetes mellitus with diabetic polyneuropathy; B95.2 Enterococcus as the cause of diseases classified elsewhere; Z71.3 Dietary counseling and surveillance; Z79.899 Other long term (current) drug therapy
CPT/HCPCS: 36415; 71045; 80048; 80053; 81001; 82607; 82962; 83540; 83550; 83735; 84132; 85025; 87081; 87086; 87088; 87186; 97110; 97116; 97530; J1450; J1815; J2405

== ENCOUNTER → 2018-01-26 | Outpatient (CLI) | payer OTHER ==
[~2018-01-26] MED LIST changes: -DOCU100C8 PO; -FER325T PO; +FLUC200T35 PO; +LEVO25TA6 PO; +LINE1TAB6 PO; -NITR-48 PO
[2018-01-26 12:23] LABS: Hematocrit 37.2 % (36.0-46.0); Mean Corpuscular Hemoglobin 30.3 pg (28.0-32.0); Mean Corpuscular Hgb Conc. 32.4 g/dL (32.0-36.0); Mean Corpuscular Volume 93.4 fL (80.0-100.0); Platelet Count (auto) 251 10^3/uL (140-450); Red Blood Cells 3.98 10^6/uL (4.0-5.20); Red Cell Distribution Width 15.8 % (11.8-14.3); White Blood Cell 6.9 10^3/uL (4.4-10.8)
[2018-01-26 12:29] LABS: Basophils # (auto) 0 uL; Basophils % (auto) 0.7 % (0.0-2.0); Eosinophils # (auto) 0.1 uL; Eosinophils % (auto) 1.8 % (0.0-7.0); Lymphocytes # (auto) 1.4 uL; Lymphocytes % (auto) 20.4 % (10.0-50.0); Monocytes # (auto) 0.4 uL; Monocytes % (auto) 5.5 % (0.0-12.0); Neutrophils % (auto) 71.6 % (37.0-80.0); Nucleated Red Blood Cells % 0.1 %
[2018-01-26 13:05] LABS: Urine Bacteria NONE SEEN /hpf (None Seen); Urine Blood 1+ /uL (Negative); Urine Mucus FEW (None Seen); Urine Specific Gravity 1.021 (1.001-1.035); Urine WBC 734 /hpf (0 - 5)
[2018-01-26 13:29] LABS: Albumin 3.5 g/dL (3.4-5.0); Calcium 9.5 mg/dL (8.5-10.1); Potassium 4.3 mmol/L (3.5-5.1)
[2018-01-26 13:33] LABS: BUN/Creatinine Ratio 26.4; Bilirubin, Total 0.1 mg/dL (0.2-1.0); Total Protein 7.4 g/dL (6.4-8.2)
== END | disposition home or self-care (01) ==
LOC: LAB 11:12
PROVIDERS: ATTEND Internal Medicine
DX: E11.22 Type 2 diabetes mellitus with diabetic chronic kidney disease (principal); N18.3 Chronic kidney disease, stage 3 (moderate)
CPT/HCPCS: 36415; 80053; 81001; 83036; 84439; 84443; 85025; 85027

== ENCOUNTER → 2018-08-10 | Outpatient (CLI) | payer OTHER ==
[2018-08-10 13:09] LABS: Basophils # (auto) 0.1 uL; Basophils % (auto) 0.9 % (0.0-2.0); Eosinophils # (auto) 0.1 uL; Eosinophils % (auto) 2.3 % (0.0-7.0); Hematocrit 38.1 % (36.0-46.0); Hemoglobin 12.4 g/dL (12.2-16.2); Lymphocytes % (auto) 36.7 % (10.0-50.0); Mean Corpuscular Hemoglobin 30.9 pg (28.0-32.0); Mean Corpuscular Hgb Conc. 32.6 g/dL (32.0-36.0); Mean Corpuscular Volume 94.8 fL (80.0-100.0); Monocytes # (auto) 0.4 uL; Monocytes % (auto) 6.6 % (0.0-12.0); Neutrophils # (auto) 2.9 uL; Neutrophils % (auto) 53.5 % (37.0-80.0); Nucleated Red Blood Cells % 0.1 %; Platelet Count (auto) 223 10^3/uL (140-450); Red Blood Cells 4.02 10^6/uL (4.0-5.20); Red Cell Distribution Width 14.8 % (11.8-14.3); White Blood Cell 5.5 10^3/uL (4.4-10.8)
[2018-08-10 13:30] LABS: Albumin 3.5 g/dL (3.4-5.0); Calcium 9.1 mg/dL (8.5-10.1)
[2018-08-10 13:47] LABS: BUN/Creatinine Ratio 29.2; Bilirubin, Total 0.3 mg/dL (0.2-1.0); Potassium 4.6 mmol/L (3.5-5.1); Total Protein 7.2 g/dL (6.4-8.2); Uric Acid 7.5 mg/dL (2.6-6.0)
== END | disposition home or self-care (01) ==
LOC: LAB 12:23
PROVIDERS: ATTEND Internal Medicine
DX: E11.40 Type 2 diabetes mellitus with diabetic neuropathy, unspecified (principal); E11.22 Type 2 diabetes mellitus with diabetic chronic kidney disease; N18.3 Chronic kidney disease, stage 3 (moderate); E03.9 Hypothyroidism, unspecified; I50.33 Acute on chronic diastolic (congestive) heart failure
CPT/HCPCS: 36415; 80053; 83036; 84439; 84443; 84550; 85025

== ENCOUNTER 2018-10-14 14:47 | Inpatient (IN) | payer OTHER | END 2018-10-17 14:00 | disposition home or self-care (01) | LOC: ER 14:47 → TELE 14:48 → TELE-CENTR 21:13 | DX: R55 Syncope and collapse (principal); R42 Dizziness and giddiness; I10 Essential (primary) hypertension; E78.5 Hyperlipidemia, unspecified; E11.8 Type 2 diabetes mellitus with unspecified complications; E11.40 Type 2 diabetes mellitus with diabetic neuropathy, unspecified; E66.01 Morbid (severe) obesity due to excess calories; N18.3 Chronic kidney disease, stage 3 (moderate); E03.9 Hypothyroidism, unspecified; Z87.440 Personal history of urinary (tract) infections; E11.65 Type 2 diabetes mellitus with hyperglycemia; E78.00 Pure hypercholesterolemia, unspecified; I12.9 Hypertensive chronic kidney disease with stage 1 through stage 4 chronic kidney disease, or unspecified chronic kidney disease ==

== ENCOUNTER 2019-03-22 12:20 | Inpatient (IN) | payer OTHER ==
[~2019-03-22] VITALS: Ht 172.7 cm; Wt 135.1 kg
[~2019-03-22 12:20] MED LIST changes: -FLUC200T35 PO; +FLUO10CA15 PO; -FLUO10TA18 PO; -FURO40TA PO; -GLIP-116 PO; +GLIP10TA9 PO; -LINE1TAB6 PO; -POTA1TAB61 PO; +SITA50TA PO
[2019-03-22] MEDS ORDERED: HYDROmorphone HCL 2 MG/ML VL IV ONE ×2 (16:45→21:30)
[2019-03-22] MEDS ORDERED: ONDANSETRON HCL 4 MG/2 ML VIAL IV ONE ×2 (16:45→21:30)
[2019-03-22 18:48] LABS: Basophils # (auto) 0 uL; Basophils % (auto) 0.4 % (0.0-2.0); Eosinophils # (auto) 0 uL; Hematocrit 37.7 % (36.0-46.0); Hemoglobin 12.1 g/dL (12.2-16.2); Lymphocytes # (auto) 0.9 uL; Lymphocytes % (auto) 10.1 % (10.0-50.0); Mean Corpuscular Hemoglobin 30.3 pg (28.0-32.0); Mean Corpuscular Hgb Conc. 32.2 g/dL (32.0-36.0); Mean Corpuscular Volume 94.1 fL (80.0-100.0); Monocytes # (auto) 0.3 uL; Monocytes % (auto) 3.6 % (0.0-12.0); Neutrophils # (auto) 7.7 uL; Neutrophils % (auto) 85.9 % (37.0-80.0); Nucleated Red Blood Cells % 0.1 %; Platelet Count (auto) 224 10^3/uL (140-450); Red Cell Distribution Width 15.1 % (11.8-14.3); White Blood Cell 8.9 10^3/uL (4.4-10.8)
[2019-03-22 19:00] LABS: Albumin 3.3 g/dL (3.4-5.0); Anion Gap 7 (5-15); Blood Urea Nitrogen 36 mg/dL (7-18); Carbon Dioxide 24 mmol/L (21-32); Chloride 106 mmol/L (98-107); Glucose 249 mg/dL (74-106); Sodium 137 mmol/L (136-145)
[2019-03-22 19:03] LABS: INR 0.99 (0.9-1.15); Partial Thromboplastin Time 27.6 sec (23.64-32.05)
[2019-03-22 19:05] LABS: Alanine Aminotransferase 15 U/L (13-56); Alkaline Phosphatase 72 U/L (45-117); Aspartate Aminotransferase 12 U/L (15-37); BUN/Creatinine Ratio 23.8; Bilirubin, Total 0.4 mg/dL (0.2-1.0); GFR African American 43 mL/min; GFR Non-African American 36 mL/min
[2019-03-22] MEDS ORDERED: ACETAMINOPHEN 325 MG TAB PO PRN (20:45)
[2019-03-22] MEDS ORDERED: MORPHINE SULF INJ 2 MG/ML SYRINGE 1ML IV PRN (20:45)
[2019-03-22] MEDS ORDERED: TEMAZEPAM 15 MG CAP PO PRN (20:45)
[2019-03-22] MEDS ORDERED: DEXTROSE (50%) 50ML SYRG IV PRN (20:45)
[2019-03-22 22:45] VITALS: BP 148/68
[2019-03-22] MEDS: ATORVASTATIN 20 MG TAB PO SCH (22:50)
--- NOTE | 2019-03-22 23:00 | NUR ---
ADMITTED PATIENT FROM THE ER, AAO4. NO DISTRESS NOTED. AFEBRILE. COMPLAINED OF LEFT ARM PAIN. LEFT ARM HAS A SLING ON. AFEBRILE. MILD LEFT ARM AND BLE WEAKNESS NOTED. ORIENTATION DONE. INTRODUCED MYSELF TO THE PATIENT. ROUTINE ADMISSION DONE. POCS DISCUSSED WITH PATIENT AND SHOWED UNDERSTANDING. BED KEPT ON LOWEST POSITION. SIDE RAILS UP. CALL LIGHT/TABLE IN REACH. KEPT COMFORTABLE.
[2019-03-23] MEDS: ACCU-CHEK COMFORT CURVE STRIP VI SCH ×4 (01:13→18:20)
[2019-03-23] MEDS: InsuLIN REG 1unit/0.01ml Soln (100units/ml) SC SCH ×4 (01:13→18:29)
[2019-03-23 05:05] VITALS: BP 143/69
[2019-03-23 06:37] LABS: Basophils # (auto) 0 uL; Basophils % (auto) 0.3 % (0.0-2.0); Eosinophils # (auto) 0 uL; Eosinophils % (auto) 0.1 % (0.0-7.0); Hemoglobin 11.5 g/dL (12.2-16.2); Lymphocytes % (auto) 15.8 % (10.0-50.0); Mean Corpuscular Hemoglobin 31.1 pg (28.0-32.0); Mean Corpuscular Volume 94.4 fL (80.0-100.0); Monocytes # (auto) 0.5 uL; Monocytes % (auto) 8.1 % (0.0-12.0); Neutrophils # (auto) 4.9 uL; Neutrophils % (auto) 75.7 % (37.0-80.0); Platelet Count (auto) 211 10^3/uL (140-450); Red Blood Cells 3.71 10^6/uL (4.0-5.20); Red Cell Distribution Width 15.1 % (11.8-14.3); White Blood Cell 6.4 10^3/uL (4.4-10.8)
[2019-03-23 07:00] LABS: Potassium 5.1 mmol/L (3.5-5.1)
[2019-03-23 07:02] LABS: BUN/Creatinine Ratio 22.5
[2019-03-23] MEDS: LEVOTHYROXINE SODIUM 25 MCG TAB PO SCH (07:28)
[2019-03-23 08:48] VITALS: BP 130/55
[2019-03-23] MEDS: PANTOPRAZOLE 40 MG TAB PO SCH (10:02)
[2019-03-23] MEDS: amLODIPine BESYLATE 5 MG TAB PO SCH (10:02)
[2019-03-23] MEDS: ONDANSETRON HCL 4 MG/2 ML VIAL IV PRN (10:27)
[2019-03-23 13:00] VITALS: BP 143/69
[2019-03-23] MEDS: HYDROmorphone HCL 2 MG/ML VL IV PRN (14:20)
--- NOTE | 2019-03-23 15:19 | NUR ---
Assessment Pt is a 78 yr old alert and oriented female. Prior to admit, pt lived alone and her daughter, Kristina, is her emergency contact at [phone]. Prior to admit, pt ambulated with a cane but stated that she has a w/c if needed, other jeff pt is independent with ADL's. Pt's Primary is Luis Alfredo, has no AD and receives [employer] income. Pt stated that she would feel safe d/c home once medically cleared and that she has 2 very supportive daughters. Pt stated that her daughter can transport home upon d/c. Pt would benefit from a PT eval to assess current mobility. Pt plans to d/c home upon medical clearance. Addendum: 03/23/19 at 1530 by JOHN ULRICH Amended: Links added.
[2019-03-23 17:00] VITALS: BP 122/53
[2019-03-23] MEDS: ATORVASTATIN 20 MG TAB PO SCH (21:04)
[2019-03-23] MEDS: HYDROcodone-ACET 5/325MG TAB PO PRN (21:05)
[2019-03-23 21:45] VITALS: BP 123/57
[2019-03-24] MEDS: ACCU-CHEK COMFORT CURVE STRIP VI SCH ×4 (00:01→18:12)
[2019-03-24] MEDS: InsuLIN REG 1unit/0.01ml Soln (100units/ml) SC SCH ×4 (00:02→18:12)
--- NOTE | 2019-03-24 03:30 | NUR ---
DAUGHTER OF PATIENT CALLED AND MENTIONED CONCERNS ON MOTHER'S PLAN OF DISCHARGE TODAY AND WANTS PATIENT'S URINE TESTED BEFORE DISCHARGE. WILL ENDORSE TO AM SHIFT NURSE.
[2019-03-24 04:52] VITALS: BP 138/63
[2019-03-24] MEDS: LEVOTHYROXINE SODIUM 25 MCG TAB PO SCH (05:49)
[2019-03-24] MEDS: HYDROcodone-ACET 5/325MG TAB PO PRN ×2 (05:50→10:52)
[2019-03-24 08:34] VITALS: BP 138/89
[2019-03-24] MEDS: amLODIPine BESYLATE 5 MG TAB PO SCH (10:00)
--- NOTE | 2019-03-24 10:50 | NUR ---
PT REFUSING AM BP MED. SHE REPORTS, "IT MAKES ME PASS OUT IF I STAND UP."
[2019-03-24] MEDS: PANTOPRAZOLE 40 MG TAB PO SCH (10:52)
[2019-03-24 12:07] VITALS: BP 151/64
--- NOTE | 2019-03-24 13:05 | NUR ---
CALLED JORDAN GARCIA, AND REQUESTED SHE SEE PATIENT TODAY PER DR SANDHU, NO ANSWER, LEFT MESSAGE.
--- NOTE | 2019-03-24 15:34 | NUR ---
ANTONIO GODOY REPORTS SHE HAS ASKED PATIENT TO VOID TWICE, PT REPORTS SHE, "DOESN'T HAVE TO GO YET." PT ALREADY EDUCATED URINE SAMPLE WAS NEEDED AFTER DR SAW HER. WALT REPORTS PT VOIDED THIS MORNING AROUND BREAKFAST. EDUCATED PT THAT HOLDING HER VOIDS CAN CAUSE URINARY TRACT INFECTIONS, PT VERBALIZED UNDERSTANDING. REQUESTED URINE SAMPLE AGAIN, PT REPORTS SHE WILL CALL WHEN SHE HAS TO GO.
--- NOTE | 2019-03-24 15:38 | NUR ---
PAGED PHYSICAL THERAPY TO ROOM FOR EVAL.
--- NOTE | 2019-03-24 16:00 | NUR ---
PT REFUSED P.T. TODAY.
--- NOTE | 2019-03-24 16:07 | NUR ---
URINE SAMPLE SENT TO LAB. PHYSICAL THERAPY REPORTS THEY WILL PUT PATIENT ON LIST TO BE SEEN. JORDAN CHONG SAW PATIENT AND REPORTS PT DOES NOT QUALIFY FOR [facility] FACILITY. PT DAUGHTER CALLED AND REPORTS PT IS ACCEPTED BY [facility] FOR SNIFF. SPOKE WITH JORDAN, JORDAN REPORTS [facility] IS NOT THE PAYER, THIS FACILITY IS AND PT DOES NOT QUALIFY. JORDAN REPORTS SHE ALREADY SPOKE WITH ADMINISTRATION WELL.
--- NOTE | 2019-03-24 16:50 | NUR ---
re-assessment I spoke to patient about her ss consult for living alone, needs PT, requesting senior living placement. Patient informed me she is independent. Patient informed me she fractured her left shoulder. Patient is right handed. Dr Cat informed me no surgery needed. Patient does not qualify for SNF. Patient informed me she is fine with going home if her pain is controlled. I notified Dr Cat. Patient can ambulate and patient has full use of her right arm. Patient verbalized understanding and agreed to discharge plan home. Addendum: 03/26/19 at 1654 by Arminda GARCIA Amended: Links added.
[2019-03-24 17:12] VITALS: BP 109/70
--- NOTE | 2019-03-24 20:00 | NUR ---
patient refused to have back assessed. could not fully complete physical assessment. Patient states "i have no wounds on back or buttocks". patient will be strict turned/repositioned q2 hours or prn. Candis PAN assessed the back and advised me that she has small area of blanchable redness on buttocks area.
[2019-03-24] MEDS: HYDROmorphone HCL 2 MG/ML VL IV PRN (20:15)
[2019-03-24] MEDS: ONDANSETRON HCL 4 MG/2 ML VIAL IV PRN (20:17)
[2019-03-24 22:00] VITALS: BP 135/56
[2019-03-24] MEDS: ATORVASTATIN 20 MG TAB PO SCH (22:15)
[2019-03-25] MEDS: ACCU-CHEK COMFORT CURVE STRIP VI SCH ×5 (00:20→23:36)
[2019-03-25] MEDS: InsuLIN REG 1unit/0.01ml Soln (100units/ml) SC SCH ×5 (00:25→23:38)
--- NOTE | 2019-03-25 00:25 | NUR ---
Paged hospitalist to notify of patient requesting medication for itchiness all over body. awaiting call back from hospitalist.
[2019-03-25] MEDS ORDERED: diphenhdrAMINE HCL 25 MG CAP PO ONE ×2 (00:45→06:45)
--- NOTE | 2019-03-25 00:51 | NUR ---
Hospitalist provided order. Will carry out medication administration.
[2019-03-25 05:00] VITALS: BP_SYST 108; BP_SYST 124; BP_DIAS 20; BP_DIAS 42
--- NOTE | 2019-03-25 06:32 | NUR ---
Paged hospitalist to notify of patient requesting medication for itchiness all over body. awaiting call back from hospitalist. Addendum: 03/25/19 at 0637 by Julian Arroyo RN itch has returned.
--- NOTE | 2019-03-25 07:00 | NUR ---
Opening Shift Note received report on the patient. Awake lying in bed. patient shows no signs of distress at this time. Bed in lowest position, side rail up x2, and the call light is within reach. Will continue to monitor.
[2019-03-25] MEDS: LEVOTHYROXINE SODIUM 25 MCG TAB PO SCH (07:01)
[2019-03-25 07:30] VITALS: BP 138/89
[2019-03-25 08:51] VITALS: BP 156/78
[2019-03-25] MEDS: PANTOPRAZOLE 40 MG TAB PO SCH (10:08)
[2019-03-25] MEDS: amLODIPine BESYLATE 5 MG TAB PO SCH (10:08)
[2019-03-25 13:00] VITALS: BP 152/62
[2019-03-25 17:21] VITALS: BP 147/53
[2019-03-25 22:00] VITALS: BP 127/52
[2019-03-25] MEDS: ATORVASTATIN 20 MG TAB PO SCH (23:36)
[2019-03-25] MEDS: HYDROcodone-ACET 5/325MG TAB PO PRN (23:36)
[2019-03-26] VITALS (7 sets, daily range): BP systolic 117–166; BP diastolic 51–89
[2019-03-26] MEDS: LEVOTHYROXINE SODIUM 25 MCG TAB PO SCH (06:44)
[2019-03-26] MEDS: ACCU-CHEK COMFORT CURVE STRIP VI SCH ×4 (06:44→23:46)
[2019-03-26] MEDS: InsuLIN REG 1unit/0.01ml Soln (100units/ml) SC SCH ×4 (06:48→23:46)
[2019-03-26] MEDS: PANTOPRAZOLE 40 MG TAB PO SCH (09:30)
[2019-03-26] MEDS: ONDANSETRON HCL 4 MG/2 ML VIAL IV PRN (09:30)
[2019-03-26 09:42] LABS: Basophils # (auto) 0 uL; Basophils % (auto) 0.6 % (0.0-2.0); Eosinophils # (auto) 0.2 uL; Eosinophils % (auto) 2.6 % (0.0-7.0); Hematocrit 38.7 % (36.0-46.0); Hemoglobin 12.6 g/dL (12.2-16.2); Lymphocytes # (auto) 2.4 uL; Lymphocytes % (auto) 32.9 % (10.0-50.0); Mean Corpuscular Hemoglobin 31.2 pg (28.0-32.0); Mean Corpuscular Hgb Conc. 32.7 g/dL (32.0-36.0); Mean Corpuscular Volume 95.7 fL (80.0-100.0); Monocytes # (auto) 0.6 uL; Monocytes % (auto) 8.3 % (0.0-12.0); Neutrophils # (auto) 4.1 uL; Neutrophils % (auto) 55.6 % (37.0-80.0); Nucleated Red Blood Cells % 0.1 %; Platelet Count (auto) 223 10^3/uL (140-450); Red Blood Cells 4.04 10^6/uL (4.0-5.20); Red Cell Distribution Width 15.2 % (11.8-14.3); White Blood Cell 7.4 10^3/uL (4.4-10.8)
[2019-03-26] MEDS: amLODIPine BESYLATE 5 MG TAB PO SCH (09:46)
[2019-03-26 10:00] LABS: Albumin 3.2 g/dL (3.4-5.0); Calcium 9.5 mg/dL (8.5-10.1); Potassium 5.2 mmol/L (3.5-5.1)
--- NOTE | 2019-03-26 10:03 | NUR ---
Discharge Talked to the patient about a ride home. Patient stated that she did not have anyone to give her a ride home. Told the patient I would get a taxi voucher.
[2019-03-26 10:04] LABS: Bilirubin, Total 0.4 mg/dL (0.2-1.0); Total Protein 7.3 g/dL (6.4-8.2)
--- NOTE | 2019-03-26 12:18 | NUR ---
Discharge Patient told me that she does not have the keys to get into her house. Told her to try to call for keys.
--- NOTE | 2019-03-26 13:36 | NUR ---
Discharge Patient stated she does not have a way to get into her house and her daughter Kristina is in [place]. I asked her to try to contact her second daughter who lives in [place].
--- NOTE | 2019-03-26 14:56 | NUR ---
Discharge Patient states that the daughter that lives in [place] cannot come to let her in the house because she does not have a palafox. I asked her to see if she can stay at her house for the night. Patient will call daughter back.
--- NOTE | 2019-03-26 16:01 | NUR ---
Discharge Patient does not have any way to get in her house for the night. I asked if there was any friends she could stay with for the night. Patient stated "no my one friend is ". Patient stated maybe her grandson could let her in. Patient is calling grandson.
--- NOTE | 2019-03-26 16:49 | NUR ---
Discharge Patient states grandson cannot let her in the house.
--- NOTE | 2019-03-26 17:05 | NUR ---
Discharge called Dr. Cat to see if we could hold the D/C until tomorrow since the patient has no way of getting into her house. Dr. Cat said no. Continuing to work on somewhere for the patient to go.
--- NOTE | 2019-03-26 18:21 | NUR ---
Discharge Paged the dining car conductor hospitalist regarding the patient's discharge.
--- NOTE | 2019-03-26 18:39 | NUR ---
Discharge Dr. Jones said it was ok to hold the discharge until tomorrow. Spoke to the daughter Kristina and she will be here at 9am to tow picker the patient.
[2019-03-26] MEDS: HYDROcodone-ACET 5/325MG TAB PO PRN ×2 (18:56→23:46)
--- NOTE | 2019-03-26 19:46 | NUR ---
Opening Shift Note Assumed care of patient, awake and alert x4. No S/S of distress/SOB or pain. Call light is within reach, side rails up x2, bed is in lowest position. Left arm is in sling. Instructed on POC and to call for assist PRN, will continue to monitor for changes Q1hr and PRN.
[2019-03-26] MEDS: ATORVASTATIN 20 MG TAB PO SCH (21:55)
[2019-03-27 05:02] VITALS: BP 161/75
[2019-03-27] MEDS: InsuLIN REG 1unit/0.01ml Soln (100units/ml) SC SCH ×2 (06:03→11:49)
[2019-03-27] MEDS: ACCU-CHEK COMFORT CURVE STRIP VI SCH ×2 (06:03→11:49)
[2019-03-27] MEDS: LEVOTHYROXINE SODIUM 25 MCG TAB PO SCH (06:03)
--- NOTE | 2019-03-27 07:39 | NUR ---
OPENING SHIFT NOTE ASSUMED CARE OF PATIENT. PATIENT IS AWAKE AND ALERT X4. PATIENT HAS NO S/S OF DISTRESS/SOB AT THIS TIME. INSTRUCTED PATIENT ON POC AND DISCHARGE PLAN. BED IS IN LOWEST POSITION WITH SIDE RAILS RAISED X2, BED WHEELS LOCKED, AND CALL LIGHT IS WITHIN REACH
[2019-03-27 09:00] VITALS: BP 140/64
[2019-03-27] MEDS: HYDROcodone-ACET 5/325MG TAB PO PRN (09:52)
[2019-03-27] MEDS: PANTOPRAZOLE 40 MG TAB PO SCH (09:52)
[2019-03-27] MEDS: amLODIPine BESYLATE 5 MG TAB PO SCH (09:53)
--- NOTE | 2019-03-27 10:20 | NUR ---
Pt is refusing to get out of bed with P.T. RN is aware Addendum: 03/27/19 at 1021 by Rosanne Nolan PT Amended: Links added.
--- NOTE | 2019-03-27 10:22 | NUR ---
CALLED PT'S DAUGHTER REGARDING DISCHARGE. STATED SHE IS "3 MINUTES AWAY". WILL PROCEED WITH DISCHARGE.
== END 2019-03-27 11:15 | disposition home or self-care (01) | DRG 563 ==
LOC: ER 12:20 → EDBD 12:20 → OVERFLOW 12:21 → EAST 22:42
PROVIDERS: ADMIT Nurse Practitioner; ATTEND Family Medicine
DX: S42.212A Unspecified displaced fracture of surgical neck of left humerus, initial encounter for closed fracture (principal); N17.9 Acute kidney failure, unspecified; Z68.42 Body mass index [BMI] 45.0-49.9, adult; S00.81XA Abrasion of other part of head, initial encounter; E86.0 Dehydration; N18.3 Chronic kidney disease, stage 3 (moderate); E11.22 Type 2 diabetes mellitus with diabetic chronic kidney disease; E03.9 Hypothyroidism, unspecified; E78.5 Hyperlipidemia, unspecified; E11.9 Type 2 diabetes mellitus without complications; W01.198A Fall on same level from slipping, tripping and stumbling with subsequent striking against other object, initial encounter; F32.9 Major depressive disorder, single episode, unspecified; I12.9 Hypertensive chronic kidney disease with stage 1 through stage 4 chronic kidney disease, or unspecified chronic kidney disease; E66.01 Morbid (severe) obesity due to excess calories; Z90.49 Acquired absence of other specified parts of digestive tract; Z79.899 Other long term (current) drug therapy; Z83.3 Family history of diabetes mellitus; Z83.42 Family history of familial hypercholesterolemia; Z82.3 Family history of stroke; Y93.89 Activity, other specified; Z87.440 Personal history of urinary (tract) infections; Y92.89 Other specified places as the place of occurrence of the external cause; Y99.8 Other external cause status
CPT/HCPCS: 36415; 70450; 71045; 72040; 72125; 73030; 73060; 80048; 80053; 82962; 83880; 84484; 85025; 85610; 85730; 87086; 93005; 97163; G0378; J1815; J2405

== ENCOUNTER → 2019-12-09 | Outpatient (CLI) | payer OTHER ==
[2019-12-09 16:26] LABS: Basophils # (auto) 0 10 ^3/uL (0-0.2); Basophils % (auto) 0.7 % (0.0-2.0); Eosinophils # (auto) 0.1 10 ^3/uL (0-0.8); Eosinophils % (auto) 1.7 % (0.0-7.0); Hematocrit 37.5 % (36.0-46.0); Hemoglobin 12.4 g/dL (12.2-16.2); Lymphocytes # (auto) 1.6 10 ^3/uL (0.4-5.4); Lymphocytes % (auto) 27.2 % (10.0-50.0); Mean Corpuscular Hemoglobin 31.4 pg (28.0-32.0); Mean Corpuscular Volume 95.1 fL (80.0-100.0); Monocytes # (auto) 0.3 10 ^3/uL (0-1.3); Monocytes % (auto) 5.9 % (0.0-12.0); Neutrophils # (auto) 3.7 10 ^3/uL (1.6-8.6); Neutrophils % (auto) 64.5 % (37.0-80.0); Platelet Count (auto) 246 10^3/uL (140-450); Red Blood Cells 3.94 10^6/uL (4.0-5.20); Red Cell Distribution Width 14.6 % (11.8-14.3); White Blood Cell 5.8 10^3/uL (4.4-10.8)
[2019-12-09 16:58] LABS: Albumin 3.5 g/dL (3.4-5.0); Calcium 9.2 mg/dL (8.5-10.1); Potassium 4.6 mmol/L (3.5-5.1)
[2019-12-09 17:04] LABS: BUN/Creatinine Ratio 17.4; Bilirubin, Total 0.3 mg/dL (0.2-1.0); Total Protein 7.2 g/dL (6.4-8.2); Uric Acid 6.3 mg/dL (2.6-6.0)
[2019-12-09 17:07] LABS: Free T4 (Free Thyroxine) 0.88 ng/dL (0.89-1.76)
== END | disposition home or self-care (01) ==
LOC: LAB 16:06
PROVIDERS: ATTEND Internal Medicine
DX: E11.9 Type 2 diabetes mellitus without complications (principal); I10 Essential (primary) hypertension
CPT/HCPCS: 36415; 80053; 80061; 82607; 83036; 83970; 84439; 84443; 84550; 85025; 85652

== ENCOUNTER 2020-02-10 20:41 | Inpatient (IN) | payer OTHER ==
[~2020-02-10] VITALS: Ht 165.1 cm; Wt 129.0 kg
[2020-02-11] MEDS ORDERED: ONDANSETRON ODT 4 MG TAB PO ONE (00:45)
[2020-02-11] MEDS ORDERED: HYDROcodone-ACET 10/325MG TAB PO ONE (00:45)
[2020-02-11 01:27] LABS: Basophils # (auto) 0 10 ^3/uL (0-0.2); Basophils % (auto) 0.6 % (0.0-2.0); Eosinophils # (auto) 0.1 10 ^3/uL (0-0.8); Eosinophils % (auto) 0.8 % (0.0-7.0); Hematocrit 36.4 % (36.0-46.0); Hemoglobin 11.9 g/dL (12.2-16.2); Lymphocytes # (auto) 1.3 10 ^3/uL (0.4-5.4); Lymphocytes % (auto) 16.8 % (10.0-50.0); Mean Corpuscular Hgb Conc. 32.7 g/dL (32.0-36.0); Mean Corpuscular Volume 94.8 fL (80.0-100.0); Monocytes # (auto) 0.4 10 ^3/uL (0-1.3); Monocytes % (auto) 5.5 % (0.0-12.0); Neutrophils # (auto) 5.9 10 ^3/uL (1.6-8.6); Neutrophils % (auto) 76.3 % (37.0-80.0); Platelet Count (auto) 237 10^3/uL (140-450); Red Blood Cells 3.84 10^6/uL (4.0-5.20); Red Cell Distribution Width 14.3 % (11.8-14.3); White Blood Cell 7.7 10^3/uL (4.4-10.8)
[2020-02-11 01:42] LABS: Albumin 3.3 g/dL (3.4-5.0); Anion Gap 5 (5-15); Blood Urea Nitrogen 39 mg/dL (7-18); Calcium 8.6 mg/dL (8.5-10.1); Carbon Dioxide 22 mmol/L (21-32); Chloride 109 mmol/L (98-107); Glucose 197 mg/dL (74-106); Potassium 4.9 mmol/L (3.5-5.1); Sodium 136 mmol/L (136-145)
[2020-02-11 01:46] LABS: INR 0.97 (0.9-1.15)
[2020-02-11 01:51] LABS: Alanine Aminotransferase 20 U/L (13-56); Alkaline Phosphatase 85 U/L (45-117); Aspartate Aminotransferase 14 U/L (15-37); BUN/Creatinine Ratio 28.1; Bilirubin, Total 0.3 mg/dL (0.2-1.0); GFR African American 47 mL/min; GFR Non-African American 39 mL/min; Total Protein 7.3 g/dL (6.4-8.2)
[2020-02-11] MEDS ORDERED: MORPHINE SULFATE 4 MG/ML SYR/VIAL IV ONE (03:15)
[2020-02-11] MEDS ORDERED: ONDANSETRON HCL 4 MG/2 ML VIAL IV ONE (03:15)
[2020-02-11] MEDS ORDERED: MORPHINE SULF INJ 2 MG/ML SYRINGE 1ML IV PRN (04:30)
[2020-02-11] MEDS ORDERED: DEXTROSE (50%) 50ML SYRG IV PRN (04:30)
[2020-02-11] MEDS ORDERED: NITROGLYCERIN 0.4 MG SL TAB SL PRN (04:30)
[2020-02-11] MEDS ORDERED: ACETAMINOPHEN 325 MG TAB PO PRN (04:30)
[2020-02-11] MEDS: SODIUM CHLORIDE 0.9% 1,000 ML IV SCH ×2 (04:55→21:23)
[2020-02-11] MEDS: InsuLIN REG 1unit/0.01ml Soln (100units/ml) SC SCH ×4 (06:49→21:56)
[2020-02-11] MEDS: ACCU-CHEK COMFORT CURVE STRIP VI SCH ×4 (06:49→21:55)
[2020-02-11] MEDS: LEVOTHYROXINE SODIUM 25 MCG TAB PO SCH (06:50)
[2020-02-11 07:01] LABS: Potassium 5.2 mmol/L (3.5-5.1)
[2020-02-11 07:16] LABS: Basophils # (auto) 0 10 ^3/uL (0-0.2); Basophils % (auto) 0.3 % (0.0-2.0); Eosinophils # (auto) 0 10 ^3/uL (0-0.8); Eosinophils % (auto) 0.2 % (0.0-7.0); Hematocrit 33.2 % (36.0-46.0); Lymphocytes # (auto) 1.1 10 ^3/uL (0.4-5.4); Lymphocytes % (auto) 14.6 % (10.0-50.0); Mean Corpuscular Hemoglobin 31.7 pg (28.0-32.0); Mean Corpuscular Hgb Conc. 33.1 g/dL (32.0-36.0); Mean Corpuscular Volume 95.7 fL (80.0-100.0); Monocytes # (auto) 0.4 10 ^3/uL (0-1.3); Monocytes % (auto) 5.9 % (0.0-12.0); Neutrophils # (auto) 5.9 10 ^3/uL (1.6-8.6); Platelet Count (auto) 209 10^3/uL (140-450); Red Blood Cells 3.47 10^6/uL (4.0-5.20); Red Cell Distribution Width 14.4 % (11.8-14.3); White Blood Cell 7.5 10^3/uL (4.4-10.8)
[2020-02-11 07:17] LABS: Albumin 3.1 g/dL (3.4-5.0); BUN/Creatinine Ratio 26.9; Bilirubin, Total 0.2 mg/dL (0.2-1.0); Calcium 8.7 mg/dL (8.5-10.1); Total Protein 6.7 g/dL (6.4-8.2)
[2020-02-11] MEDS: ONDANSETRON HCL 4 MG/2 ML VIAL IV PRN ×2 (08:31→21:24)
[2020-02-11] MEDS: MORPHINE SULFATE 4 MG/ML SYR/VIAL IV PRN ×2 (08:31→21:24)
[2020-02-11] MEDS: HYDROcodone-ACET 5/325MG TAB PO PRN ×2 (09:43→19:39)
[2020-02-11] MEDS ORDERED: SODIUM ZIRCONIUM CYCL 10 GM PAK PO ONE (13:00)
[2020-02-11] MEDS: HEPARIN SODIUM (PORCINE) 5000 UNITS/ML 1ML VIAL SC SCH ×2 (13:05→21:57)
[2020-02-11] MEDS: FAMOTIDINE (10MG/ML) 2ML VL IV SCH ×2 (13:05→21:57)
[2020-02-11 22:31] VITALS: BP 145/55
[2020-02-12] MEDS: HYDROcodone-ACET 5/325MG TAB PO PRN ×3 (03:50→22:19)
[2020-02-12 03:55] LABS: Urine Bacteria FEW /hpf (None Seen); Urine Blood Negative /uL (Negative); Urine Hyaline Cast MANY /lpf (0 - 2); Urine Mucus FEW (None Seen); Urine Specific Gravity 1.021 (1.001-1.035); Urine WBC 23 /hpf (0 - 5)
[2020-02-12 05:14] VITALS: BP 112/58
[2020-02-12] MEDS: LEVOTHYROXINE SODIUM 25 MCG TAB PO SCH (06:03)
[2020-02-12] MEDS: ACCU-CHEK COMFORT CURVE STRIP VI SCH ×3 (06:03→17:58)
[2020-02-12] MEDS: InsuLIN REG 1unit/0.01ml Soln (100units/ml) SC SCH ×3 (06:12→17:59)
[2020-02-12 06:15] LABS: Basophils # (auto) 0 10 ^3/uL (0-0.2); Basophils % (auto) 0.5 % (0.0-2.0); Eosinophils # (auto) 0.1 10 ^3/uL (0-0.8); Eosinophils % (auto) 0.8 % (0.0-7.0); Hemoglobin 10.5 g/dL (12.2-16.2); Lymphocytes # (auto) 1.3 10 ^3/uL (0.4-5.4); Lymphocytes % (auto) 17.6 % (10.0-50.0); Mean Corpuscular Hemoglobin 31.2 pg (28.0-32.0); Mean Corpuscular Hgb Conc. 32.9 g/dL (32.0-36.0); Monocytes # (auto) 0.6 10 ^3/uL (0-1.3); Neutrophils # (auto) 5.5 10 ^3/uL (1.6-8.6); Neutrophils % (auto) 73.1 % (37.0-80.0); Platelet Count (auto) 231 10^3/uL (140-450); Red Blood Cells 3.37 10^6/uL (4.0-5.20); Red Cell Distribution Width 14.3 % (11.8-14.3); White Blood Cell 7.6 10^3/uL (4.4-10.8)
[2020-02-12 06:34] LABS: Potassium 5.2 mmol/L (3.5-5.1)
[2020-02-12 06:41] LABS: Albumin 3.1 g/dL (3.4-5.0); BUN/Creatinine Ratio 24.5; Bilirubin, Total 0.3 mg/dL (0.2-1.0); Calcium 9.3 mg/dL (8.5-10.1); Total Protein 6.9 g/dL (6.4-8.2)
[2020-02-12 09:00] VITALS: BP 132/52
[2020-02-12] MEDS: HEPARIN SODIUM (PORCINE) 5000 UNITS/ML 1ML VIAL SC SCH (09:19)
[2020-02-12] MEDS: FAMOTIDINE (10MG/ML) 2ML VL IV SCH ×2 (09:19→22:17)
[2020-02-12] MEDS ORDERED: OPTISON 3ml Vial for INJ IV ONE (10:35)
[2020-02-12] MEDS: SODIUM CHLORIDE 0.9% 1,000 ML IV SCH (10:57)
[2020-02-12] MEDS: MORPHINE SULFATE 4 MG/ML SYR/VIAL IV PRN (10:58)
[2020-02-12] MEDS: ONDANSETRON HCL 4 MG/2 ML VIAL IV PRN (10:58)
[2020-02-12] MEDS ORDERED: SODIUM BICARBONATE 8.4 % INJ 50ML VIAL IV ONE (12:30)
[2020-02-12] MEDS ORDERED: InsuLIN REG 1unit/0.01ml Soln (100units/ml) IV ONE (12:30)
[2020-02-12] MEDS ORDERED: DEXTROSE (50%) 50ML SYRG IV ONE (12:30)
[2020-02-12] MEDS ORDERED: CALCIUM GLUC 4.65meq/50ml D5AE 50 ML IV ONE (12:30)
[2020-02-12 12:46] VITALS: BP 136/53
[2020-02-12] MEDS ORDERED: SODIUM ZIRCONIUM CYCL 10 GM PAK PO ONE (14:30)
[2020-02-12 17:00] VITALS: BP 143/68
[2020-02-12 22:00] VITALS: BP 120/45
[2020-02-13] MEDS: HEPARIN SODIUM (PORCINE) 5000 UNITS/ML 1ML VIAL SC SCH ×3 (00:03→21:59)
[2020-02-13] MEDS: InsuLIN REG 1unit/0.01ml Soln (100units/ml) SC SCH ×5 (00:04→21:53)
[2020-02-13] MEDS: ACCU-CHEK COMFORT CURVE STRIP VI SCH ×5 (00:45→22:00)
[2020-02-13 05:11] VITALS: BP 156/64
[2020-02-13] MEDS: LEVOTHYROXINE SODIUM 25 MCG TAB PO SCH (05:40)
[2020-02-13] MEDS: SODIUM CHLORIDE 0.9% 1,000 ML IV SCH (06:07)
[2020-02-13 06:11] LABS: Basophils # (auto) 0 10 ^3/uL (0-0.2); Basophils % (auto) 0.6 % (0.0-2.0); Eosinophils # (auto) 0.2 10 ^3/uL (0-0.8); Hemoglobin 10.2 g/dL (12.2-16.2); Lymphocytes # (auto) 1.7 10 ^3/uL (0.4-5.4); Lymphocytes % (auto) 23.3 % (10.0-50.0); Mean Corpuscular Hemoglobin 32.4 pg (28.0-32.0); Mean Corpuscular Hgb Conc. 33.9 g/dL (32.0-36.0); Mean Corpuscular Volume 95.4 fL (80.0-100.0); Monocytes # (auto) 0.7 10 ^3/uL (0-1.3); Monocytes % (auto) 9.7 % (0.0-12.0); Neutrophils # (auto) 4.6 10 ^3/uL (1.6-8.6); Neutrophils % (auto) 63.4 % (37.0-80.0); Nucleated Red Blood Cells % 0.1 %; Platelet Count (auto) 187 10^3/uL (140-450); Red Blood Cells 3.14 10^6/uL (4.0-5.20); Red Cell Distribution Width 14.5 % (11.8-14.3); White Blood Cell 7.2 10^3/uL (4.4-10.8)
[2020-02-13 06:25] LABS: Albumin 2.9 g/dL (3.4-5.0); Calcium 8.9 mg/dL (8.5-10.1); Potassium 4.8 mmol/L (3.5-5.1)
[2020-02-13 06:29] LABS: BUN/Creatinine Ratio 26.2; Bilirubin, Total 0.3 mg/dL (0.2-1.0); Total Protein 6.5 g/dL (6.4-8.2)
[2020-02-13] MEDS ORDERED: VANCOMYCIN HCL 1000 MG VL ONE (07:24)
[2020-02-13] MEDS ORDERED: KETOROLAC TROMETH 30 MG/ML 1ML VIAL ONE (07:24)
[2020-02-13] MEDS ORDERED: TRANEXAMIC ACID 0 ML ONE (07:25)
[2020-02-13] MEDS ORDERED: BUPIVACAINE 0.25% INJ 50ML VIAL ONE (07:25)
[2020-02-13] MEDS ORDERED: ceFAZolin 1GM/50ML 100 ML IV ONE (08:07)
[2020-02-13 09:00] VITALS: BP 135/61
[2020-02-13] MEDS ORDERED: HEPARIN SODIUM (PORCINE) 5000 UNITS/ML 1ML VIAL ONE (11:54)
[2020-02-13] MEDS: FAMOTIDINE (10MG/ML) 2ML VL IV SCH ×2 (12:13→21:59)
[2020-02-13] MEDS: HYDROcodone-ACET 5/325MG TAB PO PRN ×2 (12:19→22:06)
[2020-02-13 13:00] VITALS: BP 127/40
[2020-02-13 17:00] VITALS: BP 167/62
[2020-02-14] MEDS: SODIUM CHLORIDE 0.9% 1,000 ML IV SCH ×2 (00:21→16:01)
[2020-02-14] MEDS: HYDROcodone-ACET 5/325MG TAB PO PRN ×3 (03:08→22:38)
[2020-02-14] MEDS: InsuLIN REG 1unit/0.01ml Soln (100units/ml) SC SCH ×4 (05:40→22:26)
[2020-02-14] MEDS: ACCU-CHEK COMFORT CURVE STRIP VI SCH ×4 (05:41→22:26)
[2020-02-14] MEDS: LEVOTHYROXINE SODIUM 25 MCG TAB PO SCH (05:42)
[2020-02-14 05:49] LABS: Basophils # (auto) 0 10 ^3/uL (0-0.2); Basophils % (auto) 0.7 % (0.0-2.0); Eosinophils # (auto) 0.2 10 ^3/uL (0-0.8); Eosinophils % (auto) 3.3 % (0.0-7.0); Hematocrit 29.3 % (36.0-46.0); Hemoglobin 9.8 g/dL (12.2-16.2); Lymphocytes # (auto) 1.4 10 ^3/uL (0.4-5.4); Lymphocytes % (auto) 22.6 % (10.0-50.0); Mean Corpuscular Hemoglobin 31.6 pg (28.0-32.0); Mean Corpuscular Hgb Conc. 33.6 g/dL (32.0-36.0); Mean Corpuscular Volume 93.9 fL (80.0-100.0); Monocytes # (auto) 0.5 10 ^3/uL (0-1.3); Monocytes % (auto) 9.1 % (0.0-12.0); Neutrophils # (auto) 3.9 10 ^3/uL (1.6-8.6); Neutrophils % (auto) 64.3 % (37.0-80.0); Nucleated Red Blood Cells % 0.1 %; Platelet Count (auto) 200 10^3/uL (140-450); Red Blood Cells 3.12 10^6/uL (4.0-5.20); Red Cell Distribution Width 13.7 % (11.8-14.3)
[2020-02-14 06:00] LABS: Calcium 9.1 mg/dL (8.5-10.1); Potassium 4.6 mmol/L (3.5-5.1)
[2020-02-14 06:03] LABS: BUN/Creatinine Ratio 26.7
[2020-02-14] MEDS: FAMOTIDINE (10MG/ML) 2ML VL IV SCH ×2 (08:58→22:26)
[2020-02-14] MEDS: HEPARIN SODIUM (PORCINE) 5000 UNITS/ML 1ML VIAL SC SCH ×2 (09:15→22:25)
[2020-02-14 16:00] VITALS: BP 157/98
[2020-02-14] MEDS: ONDANSETRON HCL 4 MG/2 ML VIAL IV PRN (16:09)
[2020-02-15] VITALS: BP 154/71
[2020-02-15 05:46] LABS: Basophils # (auto) 0 10 ^3/uL (0-0.2); Basophils % (auto) 0.7 % (0.0-2.0); Eosinophils # (auto) 0.1 10 ^3/uL (0-0.8); Eosinophils % (auto) 2.3 % (0.0-7.0); Hematocrit 30.6 % (36.0-46.0); Hemoglobin 10.7 g/dL (12.2-16.2); Lymphocytes # (auto) 1.2 10 ^3/uL (0.4-5.4); Lymphocytes % (auto) 20.9 % (10.0-50.0); Mean Corpuscular Hemoglobin 33.1 pg (28.0-32.0); Mean Corpuscular Hgb Conc. 35.1 g/dL (32.0-36.0); Mean Corpuscular Volume 94.2 fL (80.0-100.0); Monocytes # (auto) 0.5 10 ^3/uL (0-1.3); Monocytes % (auto) 9.2 % (0.0-12.0); Neutrophils # (auto) 3.9 10 ^3/uL (1.6-8.6); Neutrophils % (auto) 66.9 % (37.0-80.0); Nucleated Red Blood Cells % 0.1 %; Platelet Count (auto) 202 10^3/uL (140-450); Red Blood Cells 3.25 10^6/uL (4.0-5.20); Red Cell Distribution Width 13.9 % (11.8-14.3); White Blood Cell 5.9 10^3/uL (4.4-10.8)
[2020-02-15 06:01] LABS: BUN/Creatinine Ratio 23.1; Potassium 4.5 mmol/L (3.5-5.1)
[2020-02-15] MEDS: LEVOTHYROXINE SODIUM 25 MCG TAB PO SCH (06:20)
[2020-02-15] MEDS: ACCU-CHEK COMFORT CURVE STRIP VI SCH ×3 (06:20→22:20)
[2020-02-15] MEDS: InsuLIN REG 1unit/0.01ml Soln (100units/ml) SC SCH ×4 (06:21→22:20)
[2020-02-15 08:33] VITALS: BP 168/77
[2020-02-15] MEDS: SODIUM CHLORIDE 0.9% 1,000 ML IV SCH (08:40)
[2020-02-15] MEDS: FAMOTIDINE (10MG/ML) 2ML VL IV SCH ×2 (09:15→22:17)
[2020-02-15] MEDS: HEPARIN SODIUM (PORCINE) 5000 UNITS/ML 1ML VIAL SC SCH ×2 (09:16→22:19)
[2020-02-15 12:43] VITALS: BP 165/83
[2020-02-15 17:00] VITALS: BP 161/78
[2020-02-15] MEDS: DOCUSATE SOD 100 MG CAP PO PRN (22:05)
[2020-02-16] VITALS: BP 162/75
[2020-02-16] MEDS: SODIUM CHLORIDE 0.9% 1,000 ML IV SCH ×2 (01:10→17:05)
[2020-02-16] MEDS: HYDROcodone-ACET 5/325MG TAB PO PRN ×2 (02:02→09:28)
[2020-02-16] MEDS: LEVOTHYROXINE SODIUM 25 MCG TAB PO SCH (06:53)
[2020-02-16] MEDS: InsuLIN REG 1unit/0.01ml Soln (100units/ml) SC SCH ×4 (06:54→23:27)
[2020-02-16] MEDS: ACCU-CHEK COMFORT CURVE STRIP VI SCH ×4 (06:54→23:27)
[2020-02-16 07:41] LABS: Basophils # (auto) 0.1 10 ^3/uL (0-0.2); Basophils % (auto) 0.9 % (0.0-2.0); Eosinophils # (auto) 0.2 10 ^3/uL (0-0.8); Eosinophils % (auto) 2.8 % (0.0-7.0); Hematocrit 30.7 % (36.0-46.0); Hemoglobin 10.2 g/dL (12.2-16.2); Lymphocytes # (auto) 1.9 10 ^3/uL (0.4-5.4); Lymphocytes % (auto) 28.4 % (10.0-50.0); Mean Corpuscular Hemoglobin 31.1 pg (28.0-32.0); Mean Corpuscular Hgb Conc. 33.3 g/dL (32.0-36.0); Mean Corpuscular Volume 93.2 fL (80.0-100.0); Monocytes # (auto) 0.6 10 ^3/uL (0-1.3); Monocytes % (auto) 9.5 % (0.0-12.0); Neutrophils # (auto) 3.9 10 ^3/uL (1.6-8.6); Neutrophils % (auto) 58.4 % (37.0-80.0); Nucleated Red Blood Cells % 0.1 %; Platelet Count (auto) 217 10^3/uL (140-450); Red Blood Cells 3.29 10^6/uL (4.0-5.20); Red Cell Distribution Width 13.8 % (11.8-14.3); White Blood Cell 6.7 10^3/uL (4.4-10.8)
[2020-02-16 08:04] LABS: Calcium 8.8 mg/dL (8.5-10.1); Potassium 4.2 mmol/L (3.5-5.1)
[2020-02-16 08:09] LABS: BUN/Creatinine Ratio 25.6
[2020-02-16 08:25] VITALS: BP 163/74
[2020-02-16] MEDS: FAMOTIDINE (10MG/ML) 2ML VL IV SCH ×2 (09:28→23:22)
[2020-02-16] MEDS: HEPARIN SODIUM (PORCINE) 5000 UNITS/ML 1ML VIAL SC SCH ×2 (09:37→23:26)
[2020-02-16 16:15] VITALS: BP 159/67
[2020-02-16 22:00] VITALS: BP 182/65
[2020-02-17] VITALS (7 sets, daily range): BP systolic 129–188; BP diastolic 61–93
[2020-02-17] MEDS: cloNIDine HCL 0.1 MG TAB PO PRN ×2 (00:53→16:49)
[2020-02-17] MEDS: HYDROcodone-ACET 5/325MG TAB PO PRN ×3 (04:58→23:45)
[2020-02-17] MEDS: ACCU-CHEK COMFORT CURVE STRIP VI SCH ×4 (06:26→21:43)
[2020-02-17] MEDS: InsuLIN REG 1unit/0.01ml Soln (100units/ml) SC SCH ×4 (06:26→21:47)
[2020-02-17] MEDS: LEVOTHYROXINE SODIUM 25 MCG TAB PO SCH (06:40)
[2020-02-17] MEDS: FAMOTIDINE (10MG/ML) 2ML VL IV SCH ×2 (10:00→21:42)
[2020-02-17] MEDS: HEPARIN SODIUM (PORCINE) 5000 UNITS/ML 1ML VIAL SC SCH ×2 (10:01→21:47)
[2020-02-17] MEDS: SODIUM CHLORIDE 0.9% 1,000 ML IV SCH (10:14)
[2020-02-17] MEDS: DOCUSATE SOD 100 MG CAP PO PRN (16:57)
[2020-02-18] MEDS: SODIUM CHLORIDE 0.9% 1,000 ML IV SCH ×2 (04:17→23:21)
[2020-02-18] MEDS: cloNIDine HCL 0.1 MG TAB PO PRN (05:20)
[2020-02-18] MEDS: InsuLIN REG 1unit/0.01ml Soln (100units/ml) SC SCH ×4 (06:51→23:25)
[2020-02-18] MEDS: LEVOTHYROXINE SODIUM 25 MCG TAB PO SCH (06:51)
[2020-02-18] MEDS: ACCU-CHEK COMFORT CURVE STRIP VI SCH ×4 (06:51→23:24)
[2020-02-18 07:30] VITALS: BP 153/102
[2020-02-18 09:00] VITALS: BP 153/102
[2020-02-18] MEDS: FAMOTIDINE (10MG/ML) 2ML VL IV SCH ×2 (10:06→23:21)
[2020-02-18] MEDS: HEPARIN SODIUM (PORCINE) 5000 UNITS/ML 1ML VIAL SC SCH ×2 (10:11→23:22)
[2020-02-18 13:00] VITALS: BP 168/74
[2020-02-18 17:00] VITALS: BP 154/83
[2020-02-18] MEDS: ONDANSETRON HCL 4 MG/2 ML VIAL IV PRN (18:18)
[2020-02-18 22:00] VITALS: BP 133/67
[2020-02-18] MEDS: HYDROcodone-ACET 5/325MG TAB PO PRN (23:24)
[2020-02-19 05:00] VITALS: BP 140/60
[2020-02-19] MEDS: HYDROcodone-ACET 5/325MG TAB PO PRN (06:17)
[2020-02-19] MEDS: ACCU-CHEK COMFORT CURVE STRIP VI SCH ×4 (06:18→23:30)
[2020-02-19] MEDS: InsuLIN REG 1unit/0.01ml Soln (100units/ml) SC SCH ×4 (06:19→23:30)
[2020-02-19] MEDS: LEVOTHYROXINE SODIUM 25 MCG TAB PO SCH (06:27)
[2020-02-19 09:00] VITALS: BP 150/79
[2020-02-19] MEDS: FAMOTIDINE (10MG/ML) 2ML VL IV SCH ×2 (09:43→23:30)
[2020-02-19] MEDS: HEPARIN SODIUM (PORCINE) 5000 UNITS/ML 1ML VIAL SC SCH ×2 (09:44→23:30)
[2020-02-19] MEDS: SODIUM CHLORIDE 0.9% 1,000 ML IV SCH (12:08)
[2020-02-19 13:00] VITALS: BP 163/76
[2020-02-19] MEDS: cloNIDine HCL 0.1 MG TAB PO PRN (13:22)
[2020-02-19 17:00] VITALS: BP 152/65
[2020-02-19 22:08] VITALS: BP 152/79
[2020-02-20 05:10] VITALS: BP 163/79
[2020-02-20] MEDS: SODIUM CHLORIDE 0.9% 1,000 ML IV SCH ×2 (05:10→21:10)
[2020-02-20] MEDS: HYDROcodone-ACET 5/325MG TAB PO PRN ×2 (05:47→16:45)
[2020-02-20] MEDS: cloNIDine HCL 0.1 MG TAB PO PRN ×2 (05:48→16:45)
[2020-02-20] MEDS: LEVOTHYROXINE SODIUM 25 MCG TAB PO SCH (06:45)
[2020-02-20] MEDS: InsuLIN REG 1unit/0.01ml Soln (100units/ml) SC SCH ×4 (06:46→21:09)
[2020-02-20] MEDS: ACCU-CHEK COMFORT CURVE STRIP VI SCH ×4 (06:46→21:09)
[2020-02-20] MEDS: FAMOTIDINE (10MG/ML) 2ML VL IV SCH ×2 (09:17→21:10)
[2020-02-20] MEDS: HEPARIN SODIUM (PORCINE) 5000 UNITS/ML 1ML VIAL SC SCH ×2 (09:27→21:09)
[2020-02-20 21:55] VITALS: BP 135/58
[2020-02-21] MEDS: HYDROcodone-ACET 5/325MG TAB PO PRN ×3 (04:32→21:06)
[2020-02-21 05:00] VITALS: BP 173/65
[2020-02-21] MEDS: cloNIDine HCL 0.1 MG TAB PO PRN (05:27)
[2020-02-21] MEDS: LEVOTHYROXINE SODIUM 25 MCG TAB PO SCH (06:15)
[2020-02-21] MEDS: ACCU-CHEK COMFORT CURVE STRIP VI SCH ×4 (06:15→20:59)
[2020-02-21] MEDS: InsuLIN REG 1unit/0.01ml Soln (100units/ml) SC SCH ×4 (06:16→21:00)
[2020-02-21 09:00] VITALS: BP 156/84
[2020-02-21] MEDS: FAMOTIDINE (10MG/ML) 2ML VL IV SCH ×2 (09:57→20:59)
[2020-02-21] MEDS: HEPARIN SODIUM (PORCINE) 5000 UNITS/ML 1ML VIAL SC SCH ×2 (09:58→21:00)
[2020-02-21] MEDS: DOCUSATE SOD 100 MG CAP PO PRN (11:46)
[2020-02-21 12:00] VITALS: BP 142/66
[2020-02-21] MEDS: SODIUM CHLORIDE 0.9% 1,000 ML IV SCH (14:13)
[2020-02-21 17:00] VITALS: BP 154/84
[2020-02-21] MEDS ORDERED: ONDANSETRON ODT 4 MG TAB PO ONE (17:15)
[2020-02-21 22:00] VITALS: BP 129/56
[2020-02-22 05:00] VITALS: BP 149/76
[2020-02-22] MEDS: LEVOTHYROXINE SODIUM 25 MCG TAB PO SCH (06:01)
[2020-02-22] MEDS: HYDROcodone-ACET 5/325MG TAB PO PRN (06:01)
[2020-02-22] MEDS: DOCUSATE SOD 100 MG CAP PO PRN (06:01)
[2020-02-22] MEDS: ACCU-CHEK COMFORT CURVE STRIP VI SCH ×4 (06:02→21:33)
[2020-02-22] MEDS: InsuLIN REG 1unit/0.01ml Soln (100units/ml) SC SCH ×4 (06:03→21:33)
[2020-02-22 08:00] VITALS: BP 138/63
[2020-02-22] MEDS: SODIUM CHLORIDE 0.9% 1,000 ML IV SCH ×2 (08:00→21:33)
[2020-02-22 09:00] VITALS: BP 138/63
[2020-02-22] MEDS: FAMOTIDINE (10MG/ML) 2ML VL IV SCH (10:00)
[2020-02-22] MEDS: HEPARIN SODIUM (PORCINE) 5000 UNITS/ML 1ML VIAL SC SCH ×2 (10:10→21:32)
[2020-02-22] MEDS: FAMOTIDINE 20 MG TAB PO SCH (11:52)
[2020-02-22 12:00] VITALS: BP 129/59
[2020-02-22 17:00] VITALS: BP 143/69
[2020-02-23] VITALS: BP_SYST 154; BP_SYST 171; BP_DIAS 78
[2020-02-23] MEDS: InsuLIN REG 1unit/0.01ml Soln (100units/ml) SC SCH ×4 (05:32→21:44)
[2020-02-23] MEDS: ACCU-CHEK COMFORT CURVE STRIP VI SCH ×4 (05:32→21:43)
[2020-02-23] MEDS: LEVOTHYROXINE SODIUM 25 MCG TAB PO SCH (05:32)
[2020-02-23 08:00] VITALS: BP 164/70
[2020-02-23] MEDS: FAMOTIDINE 20 MG TAB PO SCH (09:34)
[2020-02-23] MEDS: HEPARIN SODIUM (PORCINE) 5000 UNITS/ML 1ML VIAL SC SCH (09:36)
[2020-02-23 16:13] VITALS: BP 169/77
[2020-02-23 17:13] LABS: Basophils # (auto) 0.1 10 ^3/uL (0-0.2); Basophils % (auto) 0.8 % (0.0-2.0); Eosinophils # (auto) 0.2 10 ^3/uL (0-0.8); Eosinophils % (auto) 2.7 % (0.0-7.0); Hematocrit 32.8 % (36.0-46.0); Hemoglobin 11.2 g/dL (12.2-16.2); Lymphocytes # (auto) 1.5 10 ^3/uL (0.4-5.4); Mean Corpuscular Hemoglobin 31.6 pg (28.0-32.0); Mean Corpuscular Hgb Conc. 34.2 g/dL (32.0-36.0); Mean Corpuscular Volume 92.2 fL (80.0-100.0); Monocytes # (auto) 0.6 10 ^3/uL (0-1.3); Monocytes % (auto) 8.3 % (0.0-12.0); Neutrophils # (auto) 4.4 10 ^3/uL (1.6-8.6); Neutrophils % (auto) 65.2 % (37.0-80.0); Nucleated Red Blood Cells % 0.1 %; Platelet Count (auto) 296 10^3/uL (140-450); Red Blood Cells 3.55 10^6/uL (4.0-5.20); Red Cell Distribution Width 13.8 % (11.8-14.3); White Blood Cell 6.7 10^3/uL (4.4-10.8)
[2020-02-23 17:29] LABS: INR 1.03 (0.9-1.15)
[2020-02-23 17:31] LABS: Albumin 2.8 g/dL (3.4-5.0); Calcium 9.3 mg/dL (8.5-10.1); Potassium 4.2 mmol/L (3.5-5.1)
[2020-02-23 17:35] LABS: BUN/Creatinine Ratio 19.5; Bilirubin, Total 0.4 mg/dL (0.2-1.0); Total Protein 6.6 g/dL (6.4-8.2)
[2020-02-23] MEDS: DOCUSATE SOD 100 MG CAP PO PRN (21:45)
[2020-02-23 22:00] VITALS: BP 172/76
[2020-02-23] MEDS: cloNIDine HCL 0.1 MG TAB PO PRN (22:38)
[2020-02-24 05:00] VITALS: BP 143/68
[2020-02-24] MEDS: LEVOTHYROXINE SODIUM 25 MCG TAB PO SCH (06:06)
[2020-02-24] MEDS: ACCU-CHEK COMFORT CURVE STRIP VI SCH ×4 (06:07→22:02)
[2020-02-24] MEDS: InsuLIN REG 1unit/0.01ml Soln (100units/ml) SC SCH ×4 (06:08→22:06)
[2020-02-24 08:00] VITALS: BP 110/77
[2020-02-24 08:30] VITALS: BP 110/77
[2020-02-24] MEDS: FAMOTIDINE 20 MG TAB PO SCH ×2 (09:03→17:56)
[2020-02-24] MEDS ORDERED: ENOXAPARIN SOD 40 MG/0.4 ML SYRINGE SC SCH (10:00)
[2020-02-24 12:00] VITALS: BP 115/66
[2020-02-24 15:57] VITALS: BP 136/76
[2020-02-25 01:35] VITALS: BP 148/81
[2020-02-25 05:54] VITALS: BP 147/88
[2020-02-25] MEDS: LEVOTHYROXINE SODIUM 25 MCG TAB PO SCH (06:22)
[2020-02-25] MEDS: ACCU-CHEK COMFORT CURVE STRIP VI SCH ×4 (06:22→21:20)
[2020-02-25] MEDS: InsuLIN REG 1unit/0.01ml Soln (100units/ml) SC SCH ×4 (06:24→21:22)
[2020-02-25] MEDS: ONDANSETRON HCL 4 MG/2 ML VIAL IV PRN (06:26)
[2020-02-25] MEDS ORDERED: ROCURONIUM 10MG/ML 10ML VIAL IV ONE (07:20)
[2020-02-25] MEDS ORDERED: MIDAZOLAM HCL 1MG/1ML-2 ML VIAL ONE (07:20)
[2020-02-25] MEDS ORDERED: ONDANSETRON HCL 4 MG/2 ML VIAL ONE (07:20)
[2020-02-25] MEDS ORDERED: fentaNYL CITRATE 5 ML ONE ×2 (07:20→09:53)
[2020-02-25] MEDS ORDERED: PROPOFOL 10 MG/ML 20 ML IV ONE (07:20)
[2020-02-25] MEDS ORDERED: SODIUM CHLORIDE LOCK 50 ML ONE (07:20)
[2020-02-25] MEDS ORDERED: fentaNYL CITRATE 100 MCG/2 ML VL ONE (07:20)
[2020-02-25] MEDS ORDERED: HYDROmorphone HCL 2 MG/ML VL ONE (07:20)
[2020-02-25] MEDS ORDERED: BUPIVACAINE HCL 50 ML ONE (07:39)
[2020-02-25] MEDS ORDERED: ceFAZolin 1GM/50ML 100 ML IV ONE (08:12)
[2020-02-25] MEDS ORDERED: ceFAZolin 1GM/50ML 50 ML IV ONE (08:22)
[2020-02-25] MEDS ORDERED: TRANEXAMIC ACID 20 ML ONE (08:32)
[2020-02-25] MEDS: FAMOTIDINE 20 MG TAB PO SCH (10:00)
[2020-02-25] MEDS ORDERED: NEOSTIGMINE 1 MG/ML INJ (10mg/10ML VIAL) ONE (10:39)
[2020-02-25] MEDS ORDERED: GLYCOPYRROLATE 0.2 MG/ML 1ML VIAL ONE (10:39)
[2020-02-25] MEDS ORDERED: VANCOMYCIN HCL 1000 MG VL ONE (11:59)
[2020-02-25] MEDS ORDERED: METOCLOPRAMIDE HCL 5MG/ml INJ 2ml VIAL IV PRN (13:00)
[2020-02-25] MEDS ORDERED: LABETALOL HCL 5 MG/ML 4ML SYRINGE IV PRN (13:00)
[2020-02-25] MEDS ORDERED: ACETAMINOPHEN 325 MG TAB PO PRN (13:00)
[2020-02-25] MEDS ORDERED: ACCU-CHEK COMFORT CURVE STRIP VI ONE (13:00)
[2020-02-25] MEDS ORDERED: HYDROmorphone HCL 2 MG/ML VL IV PRN (13:00)
[2020-02-25] MEDS ORDERED: MORPHINE SULFATE 4 MG/ML SYR/VIAL IV PRN (13:00)
[2020-02-25] MEDS ORDERED: LABETALOL HCL 5 MG/ML 4ML SYRINGE IV ONE (13:02)
[2020-02-25 14:32] LABS: Basophils # (auto) 0 10 ^3/uL (0-0.2); Basophils % (auto) 0.4 % (0.0-2.0); Eosinophils # (auto) 0 10 ^3/uL (0-0.8); Eosinophils % (auto) 0.2 % (0.0-7.0); Hematocrit 34.8 % (36.0-46.0); Hemoglobin 11.4 g/dL (12.2-16.2); Lymphocytes # (auto) 0.7 10 ^3/uL (0.4-5.4); Lymphocytes % (auto) 5.9 % (10.0-50.0); Mean Corpuscular Hemoglobin 30.9 pg (28.0-32.0); Mean Corpuscular Hgb Conc. 32.7 g/dL (32.0-36.0); Mean Corpuscular Volume 94.5 fL (80.0-100.0); Monocytes # (auto) 0.4 10 ^3/uL (0-1.3); Monocytes % (auto) 3.5 % (0.0-12.0); Neutrophils # (auto) 11.1 10 ^3/uL (1.6-8.6); Platelet Count (auto) 347 10^3/uL (140-450); Red Blood Cells 3.69 10^6/uL (4.0-5.20); Red Cell Distribution Width 14.2 % (11.8-14.3); White Blood Cell 12.3 10^3/uL (4.4-10.8)
[2020-02-25 16:00] VITALS: BP 155/77
[2020-02-25] MEDS: ceFAZolin 1GM/50ML 50 ML IV SCH ×2 (17:42→21:20)
[2020-02-25] MEDS: D5W/LACTATED RINGERS 1,000 ML IV SCH ×2 (17:43→22:43)
[2020-02-25] MEDS: KETOROLAC TROMETH 15 mg/ml 1ML VL IV SCH ×2 (17:45→23:20)
[2020-02-25 22:36] VITALS: BP 150/80
[2020-02-26] MEDS: HYDROcodone-ACET 5/325MG TAB PO PRN ×2 (02:17→06:18)
[2020-02-26] MEDS: ONDANSETRON HCL 4 MG/2 ML VIAL IV PRN ×2 (02:43→09:49)
[2020-02-26] MEDS: ceFAZolin 1GM/50ML 50 ML IV SCH (04:28)
[2020-02-26 05:30] VITALS: BP 112/48
[2020-02-26] MEDS: KETOROLAC TROMETH 15 mg/ml 1ML VL IV SCH ×3 (06:00→17:32)
[2020-02-26] MEDS: ACCU-CHEK COMFORT CURVE STRIP VI SCH ×4 (06:12→22:09)
[2020-02-26] MEDS: InsuLIN REG 1unit/0.01ml Soln (100units/ml) SC SCH ×4 (06:15→22:10)
[2020-02-26] MEDS: LEVOTHYROXINE SODIUM 25 MCG TAB PO SCH (06:17)
[2020-02-26 08:00] VITALS: BP 115/40
[2020-02-26] MEDS: FAMOTIDINE 20 MG TAB PO SCH (09:59)
[2020-02-26] MEDS: D5W/LACTATED RINGERS 1,000 ML IV SCH (10:05)
[2020-02-26] MEDS ORDERED: DEXTROSE (50%) 50ML SYRG IV PRN (12:30)
[2020-02-26 13:15] LABS: Basophils # (auto) 0.1 10 ^3/uL (0-0.2); Basophils % (auto) 0.5 % (0.0-2.0); Eosinophils # (auto) 0 10 ^3/uL (0-0.8); Eosinophils % (auto) 0.1 % (0.0-7.0); Lymphocytes # (auto) 1.4 10 ^3/uL (0.4-5.4); Lymphocytes % (auto) 11.9 % (10.0-50.0); Mean Corpuscular Hemoglobin 31.4 pg (28.0-32.0); Mean Corpuscular Hgb Conc. 33.4 g/dL (32.0-36.0); Mean Corpuscular Volume 94.1 fL (80.0-100.0); Monocytes # (auto) 1.3 10 ^3/uL (0-1.3); Monocytes % (auto) 10.3 % (0.0-12.0); Neutrophils # (auto) 9.4 10 ^3/uL (1.6-8.6); Neutrophils % (auto) 77.2 % (37.0-80.0); Platelet Count (auto) 332 10^3/uL (140-450); Red Blood Cells 3.19 10^6/uL (4.0-5.20); Red Cell Distribution Width 14.1 % (11.8-14.3); White Blood Cell 12.2 10^3/uL (4.4-10.8)
[2020-02-26 13:27] LABS: BUN/Creatinine Ratio 14.2; Calcium 8.6 mg/dL (8.5-10.1); Potassium 3.9 mmol/L (3.5-5.1)
[2020-02-26 16:00] VITALS: BP 93/35
[2020-02-26 22:00] VITALS: BP 136/57
[2020-02-26] MEDS: KETOROLAC TROMETH 30 MG/ML 1ML VIAL IV SCH (23:07)
[2020-02-27 05:00] VITALS: BP 130/48
[2020-02-27] MEDS: LEVOTHYROXINE SODIUM 25 MCG TAB PO SCH (06:03)
[2020-02-27] MEDS: KETOROLAC TROMETH 30 MG/ML 1ML VIAL IV SCH (06:03)
[2020-02-27] MEDS: ACCU-CHEK COMFORT CURVE STRIP VI SCH ×4 (06:03→21:27)
[2020-02-27] MEDS: InsuLIN REG 1unit/0.01ml Soln (100units/ml) SC SCH ×4 (06:05→21:27)
[2020-02-27 06:29] LABS: Basophils # (auto) 0.1 10 ^3/uL (0-0.2); Basophils % (auto) 0.6 % (0.0-2.0); Eosinophils # (auto) 0.2 10 ^3/uL (0-0.8); Eosinophils % (auto) 2.4 % (0.0-7.0); Hematocrit 27.8 % (36.0-46.0); Hemoglobin 9.4 g/dL (12.2-16.2); Lymphocytes # (auto) 1.6 10 ^3/uL (0.4-5.4); Lymphocytes % (auto) 16.6 % (10.0-50.0); Mean Corpuscular Hemoglobin 31.6 pg (28.0-32.0); Mean Corpuscular Hgb Conc. 33.6 g/dL (32.0-36.0); Mean Corpuscular Volume 94.1 fL (80.0-100.0); Monocytes # (auto) 0.8 10 ^3/uL (0-1.3); Monocytes % (auto) 8.7 % (0.0-12.0); Neutrophils # (auto) 6.9 10 ^3/uL (1.6-8.6); Neutrophils % (auto) 71.7 % (37.0-80.0); Nucleated Red Blood Cells % 0.1 %; Platelet Count (auto) 303 10^3/uL (140-450); Red Blood Cells 2.96 10^6/uL (4.0-5.20); Red Cell Distribution Width 14.6 % (11.8-14.3); White Blood Cell 9.7 10^3/uL (4.4-10.8)
[2020-02-27 06:49] LABS: Potassium 4.4 mmol/L (3.5-5.1)
[2020-02-27 06:52] LABS: BUN/Creatinine Ratio 14.2; Calcium 8.7 mg/dL (8.5-10.1)
[2020-02-27] MEDS: FAMOTIDINE 20 MG TAB PO SCH (09:24)
[2020-02-27 10:00] VITALS: BP 128/46
[2020-02-27] MEDS: ENOXAPARIN SOD 60 MG/0.6 ML SYRINGE SC SCH (11:24)
[2020-02-27 16:00] VITALS: BP 105/80
[2020-02-27] MEDS: SODIUM CHLORIDE 0.9% 1,000 ML IV SCH ×2 (18:43→23:55)
[2020-02-27] MEDS: HYDROcodone-ACET 5/325MG TAB PO PRN (21:27)
[2020-02-27 22:00] VITALS: BP 136/59
[2020-02-27] MEDS: ONDANSETRON HCL 4 MG/2 ML VIAL IV PRN (23:57)
[2020-02-28 00:26] LABS: Urine Bacteria MOD /hpf (None Seen); Urine Blood TRACE /uL (Negative); Urine Hyaline Cast FEW /lpf (0 - 2); Urine Mucus FEW (None Seen); Urine Specific Gravity 1.018 (1.001-1.035); Urine WBC 5 /hpf (0 - 5)
[2020-02-28 01:06] LABS: Creatinine, Urine 295 mg/dL (30.0-125.0); Sodium Urine 21 mmol/L (40-220)
[2020-02-28 05:00] VITALS: BP 161/74
[2020-02-28 05:30] LABS: Basophils # (auto) 0 10 ^3/uL (0-0.2); Basophils % (auto) 0.5 % (0.0-2.0); Eosinophils # (auto) 0.3 10 ^3/uL (0-0.8); Lymphocytes # (auto) 1.3 10 ^3/uL (0.4-5.4); Monocytes # (auto) 0.6 10 ^3/uL (0-1.3); Neutrophils # (auto) 4.1 10 ^3/uL (1.6-8.6); White Blood Cell 6.4 10^3/uL (4.4-10.8)
[2020-02-28 05:33] LABS: Eosinophils % (auto) 5.1 % (0.0-7.0); Hematocrit 24.8 % (36.0-46.0); Hemoglobin 8.5 g/dL (12.2-16.2); Lymphocytes % (auto) 20.4 % (10.0-50.0); Mean Corpuscular Hemoglobin 31.9 pg (28.0-32.0); Mean Corpuscular Hgb Conc. 34.1 g/dL (32.0-36.0); Mean Corpuscular Volume 93.6 fL (80.0-100.0); Monocytes % (auto) 9.2 % (0.0-12.0); Neutrophils % (auto) 64.8 % (37.0-80.0); Platelet Count (auto) 259 10^3/uL (140-450); Red Blood Cells 2.65 10^6/uL (4.0-5.20)
[2020-02-28 05:51] LABS: BUN/Creatinine Ratio 20.3; Calcium 8.1 mg/dL (8.5-10.1); Potassium 4.1 mmol/L (3.5-5.1)
[2020-02-28] MEDS: LEVOTHYROXINE SODIUM 25 MCG TAB PO SCH (06:07)
[2020-02-28] MEDS: ACCU-CHEK COMFORT CURVE STRIP VI SCH ×4 (06:07→22:04)
[2020-02-28] MEDS: InsuLIN REG 1unit/0.01ml Soln (100units/ml) SC SCH ×4 (06:08→22:11)
[2020-02-28 09:00] VITALS: BP 157/72
[2020-02-28] MEDS: FAMOTIDINE 20 MG TAB PO SCH (09:25)
[2020-02-28] MEDS: ENOXAPARIN SOD 60 MG/0.6 ML SYRINGE SC SCH (09:26)
[2020-02-28] MEDS ORDERED: CEFTRIAXONE SODIUM 2 GM in D5W 5% 50 ML IV ONE (10:30)
[2020-02-28] MEDS ORDERED: POLYETHYLENE GLYCOL 17 GM PWDR PO ONE (11:45)
[2020-02-28] MEDS: SODIUM CHLORIDE 0.9% 1,000 ML IV SCH ×2 (11:58→22:12)
[2020-02-28 12:00] VITALS: BP 145/69
[2020-02-28 17:00] VITALS: BP 157/69
[2020-02-28] MEDS: HYDROcodone-ACET 5/325MG TAB PO PRN (20:29)
[2020-02-28] MEDS: cloNIDine HCL 0.1 MG TAB PO PRN (21:59)
[2020-02-28 22:12] VITALS: BP 162/68
[2020-02-29] MEDS ORDERED: diphenhdrAMINE HCL 25 MG CAP PO ONE (03:15)
[2020-02-29 05:14] VITALS: BP 155/63
[2020-02-29 05:46] LABS: Calcium 8.1 mg/dL (8.5-10.1); Potassium 4.6 mmol/L (3.5-5.1)
[2020-02-29 05:48] LABS: BUN/Creatinine Ratio 30.4
[2020-02-29] MEDS: ACCU-CHEK COMFORT CURVE STRIP VI SCH ×4 (06:09→22:17)
[2020-02-29] MEDS: LEVOTHYROXINE SODIUM 25 MCG TAB PO SCH (06:16)
[2020-02-29] MEDS: InsuLIN REG 1unit/0.01ml Soln (100units/ml) SC SCH ×4 (06:17→22:22)
[2020-02-29 08:00] VITALS: BP 163/68
[2020-02-29] MEDS: cefTRIAXone 1GM/50ML D5W 50 ML IV SCH (09:18)
[2020-02-29 09:44] LABS: Hematocrit 28.7 % (36.0-46.0); Hemoglobin 9.4 g/dL (12.2-16.2)
[2020-02-29] MEDS: FAMOTIDINE 20 MG TAB PO SCH (10:26)
[2020-02-29] MEDS: ENOXAPARIN SOD 60 MG/0.6 ML SYRINGE SC SCH ×2 (10:26→22:18)
[2020-02-29] MEDS: SODIUM CHLORIDE 0.9% 1,000 ML IV SCH (12:12)
[2020-02-29 15:55] VITALS: BP 148/60
[2020-02-29 21:00] VITALS: BP 165/75
[2020-02-29] MEDS ORDERED: SODIUM CHLORIDE 0.9% 1,000 ML IV SCH (22:00)
[2020-03-01 05:00] VITALS: BP 166/88
[2020-03-01 05:24] LABS: Potassium 4.4 mmol/L (3.5-5.1)
[2020-03-01 05:30] LABS: BUN/Creatinine Ratio 22.2; Calcium 8.6 mg/dL (8.5-10.1)
[2020-03-01] MEDS: InsuLIN REG 1unit/0.01ml Soln (100units/ml) SC SCH ×4 (06:50→21:50)
[2020-03-01] MEDS: ACCU-CHEK COMFORT CURVE STRIP VI SCH ×4 (06:51→21:51)
[2020-03-01] MEDS: LEVOTHYROXINE SODIUM 25 MCG TAB PO SCH (06:52)
[2020-03-01 08:00] VITALS: BP 149/77
[2020-03-01] MEDS: cloNIDine HCL 0.1 MG TAB PO PRN (08:40)
[2020-03-01] MEDS: HYDROcodone-ACET 5/325MG TAB PO PRN (08:59)
[2020-03-01] MEDS: cefTRIAXone 1GM/50ML D5W 50 ML IV SCH (09:00)
[2020-03-01] MEDS: FAMOTIDINE 20 MG TAB PO SCH (09:29)
[2020-03-01] MEDS: ENOXAPARIN SOD 60 MG/0.6 ML SYRINGE SC SCH ×2 (09:29→21:51)
[2020-03-01 16:00] VITALS: BP 140/67
[2020-03-01 22:28] VITALS: BP 117/84
[2020-03-02 05:00] VITALS: BP 155/75
[2020-03-02 05:20] LABS: Albumin 2.4 g/dL (3.4-5.0); Calcium 8.4 mg/dL (8.5-10.1); Magnesium 1.4 mg/dL (1.6-2.6); Potassium 4.2 mmol/L (3.5-5.1)
[2020-03-02 05:21] LABS: BUN/Creatinine Ratio 18.3
[2020-03-02 05:24] LABS: Bilirubin, Total 0.2 mg/dL (0.2-1.0); Phosphorus 2.3 mg/dL (2.5-4.90); Total Protein 5.7 g/dL (6.4-8.2)
[2020-03-02 05:26] LABS: INR 1.03 (0.9-1.15); Partial Thromboplastin Time 31.9 sec (23.0-31.2)
[2020-03-02] MEDS: LEVOTHYROXINE SODIUM 25 MCG TAB PO SCH (06:02)
[2020-03-02] MEDS: InsuLIN REG 1unit/0.01ml Soln (100units/ml) SC SCH ×4 (06:23→22:00)
[2020-03-02] MEDS: ACCU-CHEK COMFORT CURVE STRIP VI SCH ×4 (06:24→22:00)
[2020-03-02 06:50] LABS: Basophils # (auto) 0 10 ^3/uL (0-0.2); Basophils % (auto) 0.6 % (0.0-2.0); Eosinophils # (auto) 0.1 10 ^3/uL (0-0.8); Eosinophils % (auto) 4.2 % (0.0-7.0); Hematocrit 26.9 % (36.0-46.0); Lymphocytes # (auto) 1.2 10 ^3/uL (0.4-5.4); Lymphocytes % (auto) 33.1 % (10.0-50.0); Mean Corpuscular Hemoglobin 30.8 pg (28.0-32.0); Mean Corpuscular Hgb Conc. 33.3 g/dL (32.0-36.0); Mean Corpuscular Volume 92.5 fL (80.0-100.0); Monocytes # (auto) 0.5 10 ^3/uL (0-1.3); Monocytes % (auto) 14.1 % (0.0-12.0); Neutrophils # (auto) 1.7 10 ^3/uL (1.6-8.6); Nucleated Red Blood Cells % 0.3 %; Platelet Count (auto) 257 10^3/uL (140-450); Red Cell Distribution Width 13.9 % (11.8-14.3); White Blood Cell 3.5 10^3/uL (4.4-10.8)
[2020-03-02 08:00] VITALS: BP 170/61
[2020-03-02] MEDS: cloNIDine HCL 0.1 MG TAB PO PRN (08:16)
[2020-03-02] MEDS: ENOXAPARIN SOD 60 MG/0.6 ML SYRINGE SC SCH ×2 (09:45→22:00)
[2020-03-02] MEDS: FAMOTIDINE 20 MG TAB PO SCH (09:46)
[2020-03-02] MEDS: cefTRIAXone 1GM/50ML D5W 50 ML IV SCH (11:42)
[2020-03-02] MEDS ORDERED: NEUTRA-PHOS TABLET PO ONE (12:15)
[2020-03-02] MEDS ORDERED: MAGNESIUM OXIDE 400 MG TAB PO ONE (12:15)
[2020-03-02 16:00] VITALS: BP 140/68
[2020-03-02] MEDS: MAGNESIUM OXIDE 400 MG TAB PO SCH (22:00)
[2020-03-03 05:30] VITALS: BP 157/60
[2020-03-03 06:28] LABS: Potassium 4.2 mmol/L (3.5-5.1)
[2020-03-03 06:32] LABS: Calcium 8.4 mg/dL (8.5-10.1)
[2020-03-03] MEDS: ACCU-CHEK COMFORT CURVE STRIP VI SCH ×4 (07:00→22:00)
[2020-03-03] MEDS: LEVOTHYROXINE SODIUM 25 MCG TAB PO SCH (07:00)
[2020-03-03 08:00] VITALS: BP 175/67
[2020-03-03] MEDS: cefTRIAXone 1GM/50ML D5W 50 ML IV SCH (09:11)
[2020-03-03] MEDS: ENOXAPARIN SOD 60 MG/0.6 ML SYRINGE SC SCH ×2 (09:11→22:00)
[2020-03-03] MEDS: DOCUSATE SOD 100 MG CAP PO PRN (09:12)
[2020-03-03] MEDS: FAMOTIDINE 20 MG TAB PO SCH (09:12)
[2020-03-03] MEDS: ONDANSETRON HCL 4 MG/2 ML VIAL IV PRN (09:24)
[2020-03-03] MEDS: MAGNESIUM OXIDE 400 MG TAB PO SCH ×2 (10:00→21:59)
[2020-03-03] MEDS: InsuLIN REG 1unit/0.01ml Soln (100units/ml) SC SCH ×3 (11:30→22:00)
[2020-03-03] MEDS: cloNIDine HCL 0.1 MG TAB PO PRN (13:07)
[2020-03-03 16:00] VITALS: BP 146/56
[2020-03-04] VITALS: BP 140/59
[2020-03-04] MEDS: HYDROcodone-ACET 5/325MG TAB PO PRN (02:44)
[2020-03-04] MEDS: LEVOTHYROXINE SODIUM 25 MCG TAB PO SCH (06:39)
[2020-03-04] MEDS: ACCU-CHEK COMFORT CURVE STRIP VI SCH ×4 (06:39→22:00)
[2020-03-04] MEDS: InsuLIN REG 1unit/0.01ml Soln (100units/ml) SC SCH ×4 (06:39→22:00)
[2020-03-04 07:28] LABS: Basophils # (auto) 0 10 ^3/uL (0-0.2); Basophils % (auto) 0.3 % (0.0-2.0); Eosinophils # (auto) 0.1 10 ^3/uL (0-0.8); Eosinophils % (auto) 1.9 % (0.0-7.0); Hematocrit 26.6 % (36.0-46.0); Hemoglobin 9.2 g/dL (12.2-16.2); Lymphocytes # (auto) 1.2 10 ^3/uL (0.4-5.4); Mean Corpuscular Hgb Conc. 34.7 g/dL (32.0-36.0); Mean Corpuscular Volume 92.1 fL (80.0-100.0); Monocytes # (auto) 0.4 10 ^3/uL (0-1.3); Monocytes % (auto) 11.3 % (0.0-12.0); Neutrophils # (auto) 2.1 10 ^3/uL (1.6-8.6); Neutrophils % (auto) 55.5 % (37.0-80.0); Platelet Count (auto) 228 10^3/uL (140-450); Red Blood Cells 2.89 10^6/uL (4.0-5.20); Red Cell Distribution Width 13.9 % (11.8-14.3); White Blood Cell 3.8 10^3/uL (4.4-10.8)
[2020-03-04 08:00] VITALS: BP 159/64
[2020-03-04 08:15] LABS: Potassium 3.8 mmol/L (3.5-5.1)
[2020-03-04 08:31] LABS: Albumin 2.3 g/dL (3.4-5.0); BUN/Creatinine Ratio 14.4; Bilirubin, Total 0.2 mg/dL (0.2-1.0); CRP High Sensitivity 3.01 mg/dL (< 0.3); Calcium 7.9 mg/dL (8.5-10.1); Magnesium 1.6 mg/dL (1.6-2.6); Total Protein 5.9 g/dL (6.4-8.2)
[2020-03-04] MEDS: cefTRIAXone 1GM/50ML D5W 50 ML IV SCH (10:47)
[2020-03-04] MEDS: MAGNESIUM OXIDE 400 MG TAB PO SCH ×2 (10:48→23:01)
[2020-03-04] MEDS: FAMOTIDINE 20 MG TAB PO SCH (10:48)
[2020-03-04] MEDS: ENOXAPARIN SOD 60 MG/0.6 ML SYRINGE SC SCH ×2 (10:51→23:01)
[2020-03-04] MEDS: ONDANSETRON HCL 4 MG/2 ML VIAL IV PRN (17:43)
[2020-03-04 23:55] VITALS: BP 138/67
[2020-03-05] MEDS: METOCLOPRAMIDE HCL 5MG/ml INJ 2ml VIAL IV SCH ×4 (00:53→17:29)
[2020-03-05] MEDS: ACCU-CHEK COMFORT CURVE STRIP VI SCH ×4 (06:24→21:55)
[2020-03-05] MEDS: InsuLIN REG 1unit/0.01ml Soln (100units/ml) SC SCH ×4 (06:24→22:00)
[2020-03-05] MEDS: LEVOTHYROXINE SODIUM 25 MCG TAB PO SCH (06:25)
[2020-03-05 08:00] VITALS: BP 162/73
[2020-03-05 08:23] LABS: BUN/Creatinine Ratio 16.5; Calcium 7.8 mg/dL (8.5-10.1); Potassium 3.8 mmol/L (3.5-5.1)
[2020-03-05] MEDS: FAMOTIDINE 20 MG TAB PO SCH (10:00)
[2020-03-05] MEDS: cefTRIAXone 1GM/50ML D5W 50 ML IV SCH (10:03)
[2020-03-05] MEDS: DOCUSATE SOD 100 MG CAP PO SCH ×2 (10:04→22:00)
[2020-03-05] MEDS: cloNIDine HCL 0.1 MG TAB PO PRN (10:04)
[2020-03-05] MEDS: MAGNESIUM OXIDE 400 MG TAB PO SCH ×2 (10:05→21:54)
[2020-03-05] MEDS: ENOXAPARIN SOD 60 MG/0.6 ML SYRINGE SC SCH ×2 (10:05→21:54)
[2020-03-05] MEDS ORDERED: POLYETHYLENE GLYCOL 17 GM PWDR PO ONE (14:45)
[2020-03-05] MEDS ORDERED: BISACODYL 5 MG EC TAB PO ONE (14:45)
[2020-03-05 16:00] VITALS: BP 134/64
[2020-03-05] MEDS: ASCORBIC ACID 500 MG TAB PO SCH (21:54)
[2020-03-05] MEDS ORDERED: GABAPENTIN 300 MG CAP PO ONE (22:00)
[2020-03-06] VITALS: BP 156/77
[2020-03-06] MEDS: METOCLOPRAMIDE HCL 5MG/ml INJ 2ml VIAL IV SCH ×4 (00:15→18:00)
[2020-03-06] MEDS ORDERED: TEMAZEPAM 15 MG CAP PO ONE (01:00)
[2020-03-06] MEDS: LEVOTHYROXINE SODIUM 25 MCG TAB PO SCH (06:15)
[2020-03-06] MEDS: ACCU-CHEK COMFORT CURVE STRIP VI SCH ×4 (06:16→22:22)
[2020-03-06] MEDS: InsuLIN REG 1unit/0.01ml Soln (100units/ml) SC SCH ×4 (06:16→22:00)
[2020-03-06 07:43] LABS: BUN/Creatinine Ratio 15.8; Calcium 7.6 mg/dL (8.5-10.1); Potassium 3.6 mmol/L (3.5-5.1)
[2020-03-06 08:00] VITALS: BP 147/52
[2020-03-06] MEDS: cefTRIAXone 1GM/50ML D5W 50 ML IV SCH (09:20)
[2020-03-06] MEDS: FAMOTIDINE 20 MG TAB PO SCH (09:21)
[2020-03-06] MEDS: DOCUSATE SOD 100 MG CAP PO SCH ×2 (09:21→22:00)
[2020-03-06] MEDS: ZINC SULFATE 220mg CAP or TAB PO SCH (09:23)
[2020-03-06] MEDS: FLUoxetine HCL 10 MG CAP PO SCH (09:23)
[2020-03-06] MEDS: ENOXAPARIN SOD 60 MG/0.6 ML SYRINGE SC SCH ×2 (09:24→22:22)
[2020-03-06] MEDS: ASCORBIC ACID 500 MG TAB PO SCH ×2 (09:24→22:22)
[2020-03-06] MEDS: MAGNESIUM OXIDE 400 MG TAB PO SCH ×2 (09:24→22:22)
[2020-03-06] MEDS ORDERED: CHOLECALCIFEROL (VITD3) 2,000 UNIT CAP PO SCH (10:00)
[2020-03-06] MEDS ORDERED: FLUoxetine HCL 20 MG CAP PO SCH (10:00)
[2020-03-06] MEDS ORDERED: POLYETHYLENE GLYCOL 17 GM PWDR PO ONE (12:00)
[2020-03-06] MEDS ORDERED: LACTULOSE 20Gm/30ML SOLN PO ONE (15:45)
[2020-03-06 16:00] VITALS: BP 130/54
[2020-03-06] MEDS ORDERED: GABAPENTIN 400 MG CAP PO ONE (22:00)
[2020-03-06] MEDS: GABAPENTIN 400 MG CAP PO SCH (22:22)
[2020-03-07] VITALS: BP 153/66
[2020-03-07] MEDS: METOCLOPRAMIDE HCL 5MG/ml INJ 2ml VIAL IV SCH ×4 (00:59→18:00)
[2020-03-07] MEDS: LEVOTHYROXINE SODIUM 25 MCG TAB PO SCH (06:00)
[2020-03-07] MEDS: ACCU-CHEK COMFORT CURVE STRIP VI SCH ×4 (06:01→22:06)
[2020-03-07] MEDS: InsuLIN REG 1unit/0.01ml Soln (100units/ml) SC SCH ×4 (06:13→22:00)
[2020-03-07 08:00] VITALS: BP 155/67
[2020-03-07] MEDS: ASCORBIC ACID 500 MG TAB PO SCH ×2 (09:32→22:05)
[2020-03-07] MEDS: MAGNESIUM OXIDE 400 MG TAB PO SCH ×2 (09:32→22:05)
[2020-03-07] MEDS: DOCUSATE SOD 100 MG CAP PO SCH ×2 (09:32→22:00)
[2020-03-07] MEDS: FAMOTIDINE 20 MG TAB PO SCH (09:32)
[2020-03-07] MEDS: FLUoxetine HCL 10 MG CAP PO SCH (09:33)
[2020-03-07] MEDS: cefTRIAXone 1GM/50ML D5W 50 ML IV SCH (09:33)
[2020-03-07] MEDS: ZINC SULFATE 220mg CAP or TAB PO SCH (09:33)
[2020-03-07] MEDS: ENOXAPARIN SOD 60 MG/0.6 ML SYRINGE SC SCH ×2 (09:33→22:05)
[2020-03-07] MEDS: ERGOCALCIFEROL 50,000 UNIT(1.25MG) CAP PO SCH (09:34)
[2020-03-07 15:44] VITALS: BP 157/64
[2020-03-07] MEDS: GABAPENTIN 400 MG CAP PO SCH (22:05)
[2020-03-07 23:38] VITALS: BP 153/74
[2020-03-08] MEDS: METOCLOPRAMIDE HCL 5MG/ml INJ 2ml VIAL IV SCH ×4 (06:00→18:00)
[2020-03-08] MEDS: LEVOTHYROXINE SODIUM 25 MCG TAB PO SCH (06:09)
[2020-03-08] MEDS: ACCU-CHEK COMFORT CURVE STRIP VI SCH ×4 (06:09→22:05)
[2020-03-08] MEDS: InsuLIN REG 1unit/0.01ml Soln (100units/ml) SC SCH ×4 (06:09→22:00)
[2020-03-08 08:00] VITALS: BP 136/68
[2020-03-08] MEDS: MAGNESIUM OXIDE 400 MG TAB PO SCH ×2 (09:58→22:05)
[2020-03-08] MEDS: ASCORBIC ACID 500 MG TAB PO SCH ×2 (09:58→22:05)
[2020-03-08] MEDS: ZINC SULFATE 220mg CAP or TAB PO SCH (09:58)
[2020-03-08] MEDS: ENOXAPARIN SOD 60 MG/0.6 ML SYRINGE SC SCH ×2 (09:58→22:05)
[2020-03-08] MEDS: FAMOTIDINE 20 MG TAB PO SCH (09:59)
[2020-03-08] MEDS: DOCUSATE SOD 100 MG CAP PO SCH ×2 (09:59→22:00)
[2020-03-08] MEDS: FLUoxetine HCL 10 MG CAP PO SCH (10:05)
[2020-03-08 16:00] VITALS: BP 141/56
[2020-03-08] MEDS: GABAPENTIN 400 MG CAP PO SCH (22:05)
[2020-03-09] MEDS: METOCLOPRAMIDE HCL 5MG/ml INJ 2ml VIAL IV SCH ×2 (06:00)
[2020-03-09] MEDS: LEVOTHYROXINE SODIUM 25 MCG TAB PO SCH (06:16)
[2020-03-09] MEDS: InsuLIN REG 1unit/0.01ml Soln (100units/ml) SC SCH ×4 (06:17→22:09)
[2020-03-09] MEDS: ACCU-CHEK COMFORT CURVE STRIP VI SCH ×4 (06:17→22:09)
[2020-03-09 08:00] VITALS: BP 117/75
[2020-03-09] MEDS: ZINC SULFATE 220mg CAP or TAB PO SCH (09:41)
[2020-03-09] MEDS: DOCUSATE SOD 100 MG CAP PO SCH (09:41)
[2020-03-09] MEDS: FAMOTIDINE 20 MG TAB PO SCH (09:41)
[2020-03-09] MEDS: ASCORBIC ACID 500 MG TAB PO SCH ×2 (09:42→22:00)
[2020-03-09] MEDS: MAGNESIUM OXIDE 400 MG TAB PO SCH ×2 (09:43→22:00)
[2020-03-09] MEDS: ENOXAPARIN SOD 60 MG/0.6 ML SYRINGE SC SCH ×2 (09:43→22:09)
[2020-03-09] MEDS: FLUoxetine HCL 10 MG CAP PO SCH (10:10)
[2020-03-09 15:52] VITALS: BP 133/65
[2020-03-09] MEDS ORDERED: InsuLIN REG 1unit/0.01ml Soln (100units/ml) ONE (16:44)
[2020-03-09] MEDS: GABAPENTIN 400 MG CAP PO SCH (22:04)
[2020-03-09 22:28] VITALS: BP 134/107
[2020-03-10] MEDS: ACCU-CHEK COMFORT CURVE STRIP VI SCH ×4 (06:02→22:02)
[2020-03-10] MEDS: LEVOTHYROXINE SODIUM 25 MCG TAB PO SCH (06:02)
[2020-03-10] MEDS: InsuLIN REG 1unit/0.01ml Soln (100units/ml) SC SCH ×4 (06:02→22:00)
[2020-03-10 08:00] VITALS: BP 133/67
[2020-03-10] MEDS: ZINC SULFATE 220mg CAP or TAB PO SCH (10:00)
[2020-03-10] MEDS: ASCORBIC ACID 500 MG TAB PO SCH ×2 (10:00→22:00)
[2020-03-10] MEDS: MAGNESIUM OXIDE 400 MG TAB PO SCH ×2 (10:38→22:00)
[2020-03-10] MEDS: ENOXAPARIN SOD 60 MG/0.6 ML SYRINGE SC SCH ×2 (10:39→22:00)
[2020-03-10] MEDS: FLUoxetine HCL 10 MG CAP PO SCH (10:40)
[2020-03-10] MEDS: FAMOTIDINE 20 MG TAB PO SCH (10:40)
[2020-03-10 16:00] VITALS: BP 114/48
[2020-03-10] MEDS: GABAPENTIN 400 MG CAP PO SCH (22:02)
[2020-03-11 00:20] VITALS: BP 132/53
[2020-03-11] MEDS: ACCU-CHEK COMFORT CURVE STRIP VI SCH ×4 (05:40→21:16)
[2020-03-11] MEDS: LEVOTHYROXINE SODIUM 25 MCG TAB PO SCH (05:41)
[2020-03-11] MEDS: InsuLIN REG 1unit/0.01ml Soln (100units/ml) SC SCH ×4 (05:41→21:16)
[2020-03-11 08:00] VITALS: BP 155/64
[2020-03-11] MEDS: ZINC SULFATE 220mg CAP or TAB PO SCH (10:00)
[2020-03-11] MEDS: ASCORBIC ACID 500 MG TAB PO SCH ×2 (10:00→21:10)
[2020-03-11] MEDS: ENOXAPARIN SOD 60 MG/0.6 ML SYRINGE SC SCH (10:51)
[2020-03-11] MEDS: FLUoxetine HCL 10 MG CAP PO SCH (10:51)
[2020-03-11] MEDS: MAGNESIUM OXIDE 400 MG TAB PO SCH ×2 (10:52→21:10)
[2020-03-11] MEDS: FAMOTIDINE 20 MG TAB PO SCH (10:52)
[2020-03-11 16:00] VITALS: BP 156/61
[2020-03-11] MEDS: GABAPENTIN 400 MG CAP PO SCH (21:10)
[2020-03-12] VITALS: BP 153/75
[2020-03-12] MEDS: ACCU-CHEK COMFORT CURVE STRIP VI SCH ×4 (06:09→21:45)
[2020-03-12] MEDS: LEVOTHYROXINE SODIUM 25 MCG TAB PO SCH (06:09)
[2020-03-12] MEDS: InsuLIN REG 1unit/0.01ml Soln (100units/ml) SC SCH ×4 (06:09→21:47)
[2020-03-12 06:14] LABS: Hematocrit 25.7 % (36.0-46.0); Hemoglobin 8.8 g/dL (12.2-16.2); Mean Corpuscular Hemoglobin 31.2 pg (28.0-32.0); Mean Corpuscular Hgb Conc. 34.3 g/dL (32.0-36.0); Mean Corpuscular Volume 90.9 fL (80.0-100.0); Platelet Count (auto) 264 10^3/uL (140-450); Red Blood Cells 2.83 10^6/uL (4.0-5.20); Red Cell Distribution Width 13.9 % (11.8-14.3); White Blood Cell 4.1 10^3/uL (4.4-10.8)
[2020-03-12 06:22] LABS: Calcium 7.7 mg/dL (8.5-10.1)
[2020-03-12 06:26] LABS: BUN/Creatinine Ratio 20.3
[2020-03-12 06:51] LABS: Basophils % (manual) 0 (0.0-2.0); Blast Cells 0; Metamyelocytes % 0; Promyelocytes % 0; Reactive Lymphocytes 0
[2020-03-12 09:29] LABS: Band Neutrophils % (manual) 5; Eosinophils % (manual) 2 (0-7); Lymphocytes % (manual) 31 (10.0-50.0); Monocytes % (manual) 4 (0-12); Myelocytes % 2
[2020-03-12] MEDS: FAMOTIDINE 20 MG TAB PO SCH (10:00)
[2020-03-12] MEDS: ZINC SULFATE 220mg CAP or TAB PO SCH (10:08)
[2020-03-12] MEDS: MAGNESIUM OXIDE 400 MG TAB PO SCH ×2 (10:08→21:45)
[2020-03-12] MEDS: ENOXAPARIN SOD 40 MG/0.4 ML SYRINGE SC SCH (10:09)
[2020-03-12] MEDS: FLUoxetine HCL 10 MG CAP PO SCH (10:09)
[2020-03-12] MEDS: ASCORBIC ACID 500 MG TAB PO SCH ×2 (10:09→21:46)
[2020-03-12 16:00] VITALS: BP 145/63
[2020-03-12] MEDS ORDERED: diphenhdrAMINE HCL 50 MG/1 ML VL IV PRN (17:30)
[2020-03-12] MEDS ORDERED: LORATADINE 10 MG TAB PO ONE (18:15)
[2020-03-12] MEDS: GABAPENTIN 400 MG CAP PO SCH (21:45)
[2020-03-13] VITALS: BP 151/72
[2020-03-13] MEDS: LEVOTHYROXINE SODIUM 25 MCG TAB PO SCH (06:10)
[2020-03-13] MEDS: ACCU-CHEK COMFORT CURVE STRIP VI SCH ×4 (06:10→20:52)
[2020-03-13] MEDS: InsuLIN REG 1unit/0.01ml Soln (100units/ml) SC SCH ×4 (06:11→20:51)
[2020-03-13 08:00] VITALS: BP 145/50
[2020-03-13] MEDS: FLUoxetine HCL 10 MG CAP PO SCH (10:00)
[2020-03-13] MEDS: LORATADINE 10 MG TAB PO SCH (10:00)
[2020-03-13] MEDS: FAMOTIDINE 20 MG TAB PO SCH (10:00)
[2020-03-13] MEDS: ASCORBIC ACID 500 MG TAB PO SCH ×3 (10:00→21:01)
[2020-03-13] MEDS: MAGNESIUM OXIDE 400 MG TAB PO SCH ×3 (10:00→21:01)
[2020-03-13] MEDS: ZINC SULFATE 220mg CAP or TAB PO SCH (10:00)
[2020-03-13] MEDS ORDERED: LORATADINE 10 MG TAB PO SCH ×3 (10:00)
[2020-03-13] MEDS: ENOXAPARIN SOD 40 MG/0.4 ML SYRINGE SC SCH (10:01)
[2020-03-13 15:52] VITALS: BP 142/71
[2020-03-13] MEDS: GABAPENTIN 400 MG CAP PO SCH (20:57)
[2020-03-14] VITALS: BP 142/63
[2020-03-14] MEDS: ACCU-CHEK COMFORT CURVE STRIP VI SCH ×3 (06:29→17:21)
[2020-03-14] MEDS: InsuLIN REG 1unit/0.01ml Soln (100units/ml) SC SCH ×3 (06:29→17:00)
[2020-03-14] MEDS: LEVOTHYROXINE SODIUM 25 MCG TAB PO SCH (06:32)
[2020-03-14 08:00] VITALS: BP 156/70
[2020-03-14] MEDS: MAGNESIUM OXIDE 400 MG TAB PO SCH (09:48)
[2020-03-14] MEDS: ASCORBIC ACID 500 MG TAB PO SCH (09:48)
[2020-03-14] MEDS: FLUoxetine HCL 10 MG CAP PO SCH (09:48)
[2020-03-14] MEDS: LORATADINE 10 MG TAB PO SCH (09:48)
[2020-03-14] MEDS: ZINC SULFATE 220mg CAP or TAB PO SCH (09:48)
[2020-03-14] MEDS: ERGOCALCIFEROL 50,000 UNIT(1.25MG) CAP PO SCH (09:48)
[2020-03-14] MEDS: FAMOTIDINE 20 MG TAB PO SCH (09:48)
[2020-03-14] MEDS: ENOXAPARIN SOD 40 MG/0.4 ML SYRINGE SC SCH (09:50)
[2020-03-14 16:57] VITALS: BP 174/55
== END 2020-03-14 21:21 | disposition home health service (06) | DRG 483 ==
LOC: EDBD 20:41 → ER 20:42 → TELE 02-11 04:33 → TELE-CENTR 02-11 20:43 → TELE-EAST 03-03 14:41
PROVIDERS: ADMIT Internal Medicine; ATTEND Internal Medicine
PROC: 0RRJ00Z Replacement of Right Shoulder Joint with Reverse Ball and Socket Synthetic Substitute, Open Approach (ICD-10-PCS; principal; 2020-02-25 08:49)
PROC: 0T9B70Z Drainage of Bladder with Drainage Device, Via Natural or Artificial Opening (ICD-10-PCS; 2020-02-27)
DX: S42.354A Nondisplaced comminuted fracture of shaft of humerus, right arm, initial encounter for closed fracture (principal); U07.1 COVID-19; J12.82 Pneumonia due to coronavirus disease 2019; E87.1 Hypo-osmolality and hyponatremia; M25.011 Hemarthrosis, right shoulder; N30.00 Acute cystitis without hematuria; N17.9 Acute kidney failure, unspecified; Z68.42 Body mass index [BMI] 45.0-49.9, adult; Z20.822 Contact with and (suspected) exposure to COVID-19; N18.32 Chronic kidney disease, stage 3b; E66.01 Morbid (severe) obesity due to excess calories; W01.0XXA Fall on same level from slipping, tripping and stumbling without subsequent striking against object, initial encounter; Y93.01 Activity, walking, marching and hiking; E87.5 Hyperkalemia; E11.41 Type 2 diabetes mellitus with diabetic mononeuropathy; E11.65 Type 2 diabetes mellitus with hyperglycemia; E03.9 Hypothyroidism, unspecified; E78.5 Hyperlipidemia, unspecified; E87.6 Hypokalemia; G57.90 Unspecified mononeuropathy of unspecified lower limb; F32.9 Major depressive disorder, single episode, unspecified; E11.22 Type 2 diabetes mellitus with diabetic chronic kidney disease; I12.9 Hypertensive chronic kidney disease with stage 1 through stage 4 chronic kidney disease, or unspecified chronic kidney disease; D63.8 Anemia in other chronic diseases classified elsewhere; K59.00 Constipation, unspecified; Z53.20 Procedure and treatment not carried out because of patient's decision for unspecified reasons; E11.21 Type 2 diabetes mellitus with diabetic nephropathy; Z96.611 Presence of right artificial shoulder joint; Z79.84 Long term (current) use of oral hypoglycemic drugs; Z82.49 Family history of ischemic heart disease and other diseases of the circulatory system; Z83.3 Family history of diabetes mellitus; Z91.19 Patient's noncompliance with other medical treatment and regimen; Z79.899 Other long term (current) drug therapy; Z79.891 Long term (current) use of opiate analgesic; Z79.01 Long term (current) use of anticoagulants; Z79.4 Long term (current) use of insulin; Z90.49 Acquired absence of other specified parts of digestive tract; Z98.51 Tubal ligation status; Z87.891 Personal history of nicotine dependence; Z83.42 Family history of familial hypercholesterolemia
CPT/HCPCS: 36415; 71045; 73020; 73030; 73200; 74018; 76000; 76775; 80048; 80053; 81001; 82306; 82565; 82570; 82728; 82962; 83036; 83615; 83735; 83880; 84100; 84300; 84443; 84484; 85007; 85014; 85018; 85025; 85027; 85379; 85610; 85730; 86141; 86850; 86900; 86901; 87081; 87426; 93005; 93306; 97110; 97116; 97530; G0378; J0610; J0690; J0696; J1815; J1885; J2250; J2405; J2704; J3490; J7060; Q0162; Q9956

== ENCOUNTER → 2021-04-27 | Outpatient (CLI) | payer OTHER ==
[2021-04-27 11:29] LABS: Basophils # (auto) 0 10 ^3/uL (0-0.2); Basophils % (auto) 0.6 % (0.0-2.0); Eosinophils # (auto) 0.1 10 ^3/uL (0-0.8); Eosinophils % (auto) 1.2 % (0.0-7.0); Hematocrit 37.7 % (36.0-46.0); Hemoglobin 12.6 g/dL (12.2-16.2); Lymphocytes # (auto) 1.7 10 ^3/uL (0.4-5.4); Lymphocytes % (auto) 22.1 % (10.0-50.0); Mean Corpuscular Hemoglobin 30.8 pg (28.0-32.0); Mean Corpuscular Hgb Conc. 33.4 g/dL (32.0-36.0); Monocytes # (auto) 0.4 10 ^3/uL (0-1.3); Monocytes % (auto) 5.6 % (0.0-12.0); Neutrophils # (auto) 5.4 10 ^3/uL (1.6-8.6); Neutrophils % (auto) 70.5 % (37.0-80.0); Red Blood Cells 4.09 10^6/uL (4.0-5.20); Red Cell Distribution Width 14.2 % (11.8-14.3); White Blood Cell 7.7 10^3/uL (4.4-10.8)
[2021-04-27 12:19] LABS: Albumin 3.3 g/dL (3.4-5.0); Calcium 9.4 mg/dL (8.5-10.1); Potassium 4.5 mmol/L (3.5-5.1)
[2021-04-27 12:24] LABS: BUN/Creatinine Ratio 25.5; Bilirubin, Total 0.2 mg/dL (0.2-1.0); Total Protein 6.9 g/dL (6.4-8.2); Uric Acid 6.4 mg/dL (2.6-6.0)
[2021-04-27 12:38] LABS: Free T4 (Free Thyroxine) 0.85 ng/dL (0.89-1.76)
== END | disposition home or self-care (01) ==
LOC: LAB 10:00
PROVIDERS: ATTEND Internal Medicine
DX: E11.21 Type 2 diabetes mellitus with diabetic nephropathy (principal); I10 Essential (primary) hypertension
CPT/HCPCS: 36415; 80053; 80061; 82607; 83036; 83970; 84439; 84443; 84550; 85025; 85652

== ENCOUNTER 2022-06-14 20:41 | Inpatient (IN) | payer OTHER ==
[~2022-06-14] VITALS: Ht 165.1 cm; Wt 135.0 kg
[2022-06-15] MEDS ORDERED: MORPHINE SULFATE 4 MG/ML SYR/VIAL IV ONE (02:00)
[2022-06-15 03:23] LABS: Hemoglobin 13.1 g/dL (12.2-16.2); Mean Corpuscular Hemoglobin 30.3 pg (28.0-32.0); Mean Corpuscular Hgb Conc. 32.8 g/dL (32.0-36.0); Mean Corpuscular Volume 92.2 fL (80.0-100.0); Red Blood Cells 4.34 10^6/uL (4.0-5.20); White Blood Cell 10.1 10^3/uL (4.4-10.8)
[2022-06-15 03:26] LABS: Basophils % (manual) 0 (0.0-2.0); Blast Cells 0; Eosinophils % (manual) 0 (0-7); Metamyelocytes % 0; Myelocytes % 0; Promyelocytes % 0; Reactive Lymphocytes 0
[2022-06-15 03:44] LABS: Albumin 3.4 g/dL (3.4-5.0); BUN/Creatinine Ratio 18.8 (10.0-20.0); Calcium 9.6 mg/dL (8.5-10.1); Potassium 4.9 mmol/L (3.5-5.1)
[2022-06-15 03:47] LABS: Bilirubin, Total 0.5 mg/dL (0.2-1.0); Total Protein 7.3 g/dL (6.4-8.2)
[2022-06-15] MEDS ORDERED: ACETAMINOPHEN 325 MG TAB PO PRN (04:30)
[2022-06-15] MEDS ORDERED: ONDANSETRON HCL 4 MG/2 ML VIAL IV PRN (04:30)
[2022-06-15] MEDS ORDERED: DEXTROSE (50%) 50ML SYRG IV PRN (04:30)
[2022-06-15] MEDS ORDERED: DOCUSATE SOD 100 MG CAP PO PRN (04:30)
[2022-06-15] MEDS ORDERED: HYDROcodone-ACET 5/325MG TAB PO PRN (04:30)
[2022-06-15] MEDS: SODIUM CHLORIDE 0.9% 1,000 ML IV SCH ×2 (04:44→22:17)
[2022-06-15] MEDS ORDERED: NITROGLYCERIN 0.4 MG SL TAB SL PRN (05:00)
[2022-06-15] MEDS ORDERED: MORPHINE SULFATE INJ 2 MG/ml SYRG IV PRN (05:00)
[2022-06-15 05:32] LABS: Band Neutrophils % (manual) 1; Lymphocytes % (manual) 11 (10.0-50.0); Monocytes % (manual) 3 (0-12)
[2022-06-15] MEDS: ACCU-CHEK COMFORT CURVE STRIP VI SCH ×3 (06:01→17:58)
[2022-06-15] MEDS: InsuLIN REG 1unit/0.01ml Soln (100units/ml) SC SCH ×3 (06:06→17:58)
[2022-06-15] MEDS: LEVOTHYROXINE SODIUM 25 MCG TAB PO SCH (06:34)
[2022-06-15] MEDS ORDERED: ASPirin 81 mg TAB PO SCH (10:00)
[2022-06-15] MEDS: FAMOTIDINE (10MG/ML) 2ML VL IV SCH ×2 (10:41→22:17)
[2022-06-15] MEDS: HEPARIN SODIUM (PORCINE) 5000 UNITS/ML 1ML VIAL SC SCH ×2 (10:41→22:18)
[2022-06-15 18:24] LABS: INR 0.97 (0.9-1.15); Partial Thromboplastin Time 28.4 sec (24.6-33.4)
[2022-06-15 22:00] VITALS: BP 128/68
[2022-06-16] MEDS: ACCU-CHEK COMFORT CURVE STRIP VI SCH ×5 (00:17→23:41)
[2022-06-16] MEDS: InsuLIN REG 1unit/0.01ml Soln (100units/ml) SC SCH ×5 (00:21→23:44)
[2022-06-16] MEDS: MORPHINE SULFATE INJ 2 MG/ml SYRG IV PRN ×2 (00:31→04:35)
[2022-06-16 05:00] VITALS: BP 127/51
[2022-06-16 05:53] LABS: Basophils # (auto) 0 10 ^3/uL (0-0.2); Basophils % (auto) 0.6 % (0.0-2.0); Eosinophils # (auto) 0.3 10 ^3/uL (0-0.8); Eosinophils % (auto) 4.6 % (0.0-7.0); Hematocrit 32.1 % (36.0-46.0); Hemoglobin 10.9 g/dL (12.2-16.2); Lymphocytes # (auto) 1.5 10 ^3/uL (0.4-5.4); Lymphocytes % (auto) 25.7 % (10.0-50.0); Mean Corpuscular Volume 91.3 fL (80.0-100.0); Monocytes # (auto) 0.5 10 ^3/uL (0-1.3); Monocytes % (auto) 8.9 % (0.0-12.0); Neutrophils # (auto) 3.6 10 ^3/uL (1.6-8.6); Neutrophils % (auto) 60.2 % (37.0-80.0); Nucleated Red Blood Cells % 0.1 %; Red Blood Cells 3.51 10^6/uL (4.0-5.20); Red Cell Distribution Width 14.9 % (11.8-14.3)
[2022-06-16 06:07] LABS: Albumin 2.7 g/dL (3.4-5.0); Calcium 8.4 mg/dL (8.5-10.1); Potassium 4.5 mmol/L (3.5-5.1)
[2022-06-16 06:11] LABS: Bilirubin, Total 0.4 mg/dL (0.2-1.0); Total Protein 5.8 g/dL (6.4-8.2)
[2022-06-16] MEDS: LEVOTHYROXINE SODIUM 25 MCG TAB PO SCH (06:33)
[2022-06-16 08:00] VITALS: BP 128/44
[2022-06-16 09:00] VITALS: BP 128/44
[2022-06-16] MEDS ORDERED: HEPARIN SODIUM (PORCINE) 5000 UNITS/ML 1ML VIAL ONE (09:48)
[2022-06-16] MEDS: FAMOTIDINE (10MG/ML) 2ML VL IV SCH ×2 (10:20→21:49)
[2022-06-16] MEDS: HEPARIN SODIUM (PORCINE) 5000 UNITS/ML 1ML VIAL SC SCH ×2 (10:22→21:50)
[2022-06-16 13:00] VITALS: BP 143/56
[2022-06-16 17:00] VITALS: BP 146/53
[2022-06-16] MEDS: SODIUM CHLORIDE 0.9% 1,000 ML IV SCH (18:08)
[2022-06-16 22:00] VITALS: BP 126/34
[2022-06-17 05:00] VITALS: BP 145/51
[2022-06-17] MEDS: ACCU-CHEK COMFORT CURVE STRIP VI SCH ×3 (06:23→17:57)
[2022-06-17] MEDS: InsuLIN REG 1unit/0.01ml Soln (100units/ml) SC SCH ×3 (06:24→17:58)
[2022-06-17] MEDS: SODIUM CHLORIDE 0.9% 1,000 ML IV SCH (06:26)
[2022-06-17] MEDS: LEVOTHYROXINE SODIUM 25 MCG TAB PO SCH (06:26)
[2022-06-17 09:00] VITALS: BP 139/48
[2022-06-17] MEDS: HEPARIN SODIUM (PORCINE) 5000 UNITS/ML 1ML VIAL SC SCH ×2 (09:51→22:46)
[2022-06-17 13:00] VITALS: BP 142/39
[2022-06-17 15:30] LABS: Urine Bacteria MANY /hpf (None Seen); Urine Blood 3+ /uL (Negative); Urine Hyaline Cast FEW /lpf (0 - 2); Urine Mucus FEW (None Seen); Urine Specific Gravity 1.014 (1.001-1.035); Urine WBC 157 /hpf (0 - 5); Urine WBC Clumps PRESENT /hpf (None Seen)
[2022-06-17 15:38] LABS: Protein, Urine 41.2 mg/dL (0.0-11.9)
[2022-06-17 16:04] LABS: Folate (Folic Acid) 6.91 ng/mL (5.38-24)
[2022-06-17] MEDS ORDERED: CYANOCOBALAMIN (B-12) 1000 MCG/1 ML VIAL IM ONE (16:45)
[2022-06-17] MEDS ORDERED: ERGOCALCIFEROL 50,000 UNIT(1.25MG) CAP PO SCH (16:45)
[2022-06-17] MEDS ORDERED: FOLIC ACID 1 MG TAB PO ONE (16:45)
[2022-06-17 17:00] VITALS: BP 145/49
[2022-06-17 20:00] VITALS: BP 154/54
[2022-06-17 22:00] VITALS: BP 154/54
[2022-06-18] MEDS: ACCU-CHEK COMFORT CURVE STRIP VI SCH ×5 (00:09→23:48)
[2022-06-18] MEDS: InsuLIN REG 1unit/0.01ml Soln (100units/ml) SC SCH ×5 (00:09→23:48)
[2022-06-18 05:00] VITALS: BP 151/61
[2022-06-18] MEDS: LEVOTHYROXINE SODIUM 25 MCG TAB PO SCH (06:15)
[2022-06-18 06:32] LABS: Basophils # (auto) 0 10 ^3/uL (0-0.2); Basophils % (auto) 0.6 % (0.0-2.0); Eosinophils # (auto) 0.2 10 ^3/uL (0-0.8); Eosinophils % (auto) 2.3 % (0.0-7.0); Hematocrit 33.1 % (36.0-46.0); Lymphocytes # (auto) 1.6 10 ^3/uL (0.4-5.4); Mean Corpuscular Hemoglobin 30.7 pg (28.0-32.0); Mean Corpuscular Hgb Conc. 33.3 g/dL (32.0-36.0); Mean Corpuscular Volume 92.1 fL (80.0-100.0); Monocytes # (auto) 0.6 10 ^3/uL (0-1.3); Monocytes % (auto) 8.7 % (0.0-12.0); Neutrophils # (auto) 4.4 10 ^3/uL (1.6-8.6); Neutrophils % (auto) 64.4 % (37.0-80.0); Nucleated Red Blood Cells % 0.2 %; Red Blood Cells 3.59 10^6/uL (4.0-5.20); Red Cell Distribution Width 14.5 % (11.8-14.3); White Blood Cell 6.8 10^3/uL (4.4-10.8)
[2022-06-18 06:39] LABS: Potassium 4.9 mmol/L (3.5-5.1)
[2022-06-18 06:50] LABS: Calcium 8.9 mg/dL (8.5-10.1)
[2022-06-18 08:35] VITALS: BP 159/54
[2022-06-18] MEDS: FOLIC ACID 1 MG TAB PO SCH (10:22)
[2022-06-18] MEDS: CYANOCOBALAMIN (B-12) 1000 MCG/1 ML VIAL IM SCH (10:23)
[2022-06-18] MEDS: HEPARIN SODIUM (PORCINE) 5000 UNITS/ML 1ML VIAL SC SCH ×2 (10:30→21:19)
[2022-06-18 12:52] VITALS: BP 143/67
[2022-06-18] MEDS ORDERED: MAALOX PLUS or MAALOX 30 ML GT PRN (15:30)
[2022-06-18 16:55] VITALS: BP 151/72
[2022-06-18 20:00] VITALS: BP 156/78
[2022-06-18] MEDS: FAMOTIDINE 20 MG TAB PO SCH (21:16)
[2022-06-18 22:11] VITALS: BP 156/78
[2022-06-19 05:06] VITALS: BP 143/65
[2022-06-19] MEDS: InsuLIN REG 1unit/0.01ml Soln (100units/ml) SC SCH ×2 (05:32→11:57)
[2022-06-19] MEDS: ACCU-CHEK COMFORT CURVE STRIP VI SCH ×2 (05:33→11:55)
[2022-06-19] MEDS: LEVOTHYROXINE SODIUM 25 MCG TAB PO SCH (06:00)
[2022-06-19 07:50] LABS: BUN/Creatinine Ratio 16.5 (10.0-20.0); Calcium 8.8 mg/dL (8.5-10.1)
[2022-06-19 09:02] VITALS: BP 136/64
[2022-06-19] MEDS: CYANOCOBALAMIN (B-12) 1000 MCG/1 ML VIAL IM SCH (10:07)
[2022-06-19] MEDS: FOLIC ACID 1 MG TAB PO SCH (10:08)
[2022-06-19] MEDS: FAMOTIDINE 20 MG TAB PO SCH (10:09)
[2022-06-19] MEDS: HEPARIN SODIUM (PORCINE) 5000 UNITS/ML 1ML VIAL SC SCH (10:16)
[2022-06-19 12:24] VITALS: BP 155/57
== END 2022-06-19 15:30 | DRG 563 ==
LOC: EDBD 20:41 → ER 20:41 → OVERFLOW 06-15 04:55 → WEST WING 06-15 16:36
PROVIDERS: ADMIT Nurse Practitioner Family; ATTEND Internal Medicine
DX: S82.845A Nondisplaced bimalleolar fracture of left lower leg, initial encounter for closed fracture (principal); N17.9 Acute kidney failure, unspecified; Z68.42 Body mass index [BMI] 45.0-49.9, adult; S82.62XA Displaced fracture of lateral malleolus of left fibula, initial encounter for closed fracture; E11.40 Type 2 diabetes mellitus with diabetic neuropathy, unspecified; I12.9 Hypertensive chronic kidney disease with stage 1 through stage 4 chronic kidney disease, or unspecified chronic kidney disease; E66.01 Morbid (severe) obesity due to excess calories; Z96.611 Presence of right artificial shoulder joint; E78.00 Pure hypercholesterolemia, unspecified; N18.30 Chronic kidney disease, stage 3 unspecified; E03.9 Hypothyroidism, unspecified; W01.0XXA Fall on same level from slipping, tripping and stumbling without subsequent striking against object, initial encounter; Z90.49 Acquired absence of other specified parts of digestive tract; Y93.89 Activity, other specified; Y92.89 Other specified places as the place of occurrence of the external cause; Y99.8 Other external cause status
CPT/HCPCS: 36415; 70450; 71045; 73502; 73600; 73610; 80048; 80053; 80061; 81001; 82043; 82306; 82570; 82607; 82746; 82962; 83036; 84156; 84300; 84443; 85007; 85025; 85027; 85610; 85730; 93306; 96374; 97163; G0378; J1815; J3490

== ENCOUNTER → 2023-10-02 | Outpatient (CLI) | payer MEDICAID ==
[~2023-10-02] MED LIST changes: -SITA50TA PO
[2023-10-02 14:21] LABS: Basophils # (auto) 0 10 ^3/uL (0-0.2); Basophils % (auto) 0.6 % (0.0-2.0); Eosinophils # (auto) 0.2 10 ^3/uL (0-0.8); Eosinophils % (auto) 2.4 % (0.0-7.0); Hematocrit 41.7 % (36.0-46.0); Hemoglobin 13.8 g/dL (12.2-16.2); Lymphocytes # (auto) 2.9 10 ^3/uL (0.4-5.4); Lymphocytes % (auto) 44.2 % (10.0-50.0); Mean Corpuscular Hemoglobin 31.1 pg (28.0-32.0); Mean Corpuscular Hgb Conc. 33.1 g/dL (32.0-36.0); Mean Corpuscular Volume 94.1 fL (80.0-100.0); Monocytes # (auto) 0.4 10 ^3/uL (0-1.3); Monocytes % (auto) 5.7 % (0.0-12.0); Neutrophils # (auto) 3.1 10 ^3/uL (1.6-8.6); Neutrophils % (auto) 47.1 % (37.0-80.0); Nucleated Red Blood Cells % 0.1 %; Red Blood Cells 4.43 10^6/uL (4.0-5.20); Red Cell Distribution Width 14.3 % (11.8-14.3); White Blood Cell 6.6 10^3/uL (4.4-10.8)
[2023-10-02 15:21] LABS: Alkaline Phosphatase 76 U/L (46-116); Anion Gap 6 (5-15); Aspartate Aminotransferase 10 U/L (13-40); BUN/Creatinine Ratio 19.3 (10.0-20.0); Bilirubin, Total 0.4 mg/dL (0.2-1.0); Blood Urea Nitrogen 27 mg/dL (9-23); Calcium 9.8 mg/dL (8.7-10.4); Carbon Dioxide 25 mmol/L (20-30); Chloride 110 mmol/L (98-107); Glucose 132 mg/dL (74-106); Potassium 4.4 mmol/L (3.5-5.1); Sodium 141 mmol/L (136-145); Total Protein 6.6 g/dL (5.7-8.2)
[2023-10-02 15:24] LABS: Alanine Aminotransferase 9 U/L (7-40)
[2023-10-02 15:38] LABS: Uric Acid 9.1 mg/dL (3.1-7.8)
== END | disposition home or self-care (01) ==
LOC: LAB 13:56
PROVIDERS: ATTEND Internal Medicine
DX: I12.9 Hypertensive chronic kidney disease with stage 1 through stage 4 chronic kidney disease, or unspecified chronic kidney disease (principal); E11.22 Type 2 diabetes mellitus with diabetic chronic kidney disease; N18.9 Chronic kidney disease, unspecified
CPT/HCPCS: 36415; 80053; 83036; 84550; 85025

== ENCOUNTER → 2024-04-15 | Outpatient (CLI) | payer MEDICAID ==
[2024-04-15 12:45] LABS: Basophils # (auto) 0.1 10 ^3/uL (0-0.2); Basophils % (auto) 0.7 % (0.0-2.0); Eosinophils # (auto) 0.1 10 ^3/uL (0-0.8); Eosinophils % (auto) 1.7 % (0.0-7.0); Hematocrit 38.7 % (36.0-46.0); Hemoglobin 12.9 g/dL (12.2-16.2); Lymphocytes # (auto) 2.2 10 ^3/uL (0.4-5.4); Lymphocytes % (auto) 31.4 % (10.0-50.0); Mean Corpuscular Hemoglobin 31.3 pg (28.0-32.0); Mean Corpuscular Hgb Conc. 33.5 g/dL (32.0-36.0); Mean Corpuscular Volume 93.5 fL (80.0-100.0); Monocytes # (auto) 0.4 10 ^3/uL (0-1.3); Monocytes % (auto) 5.2 % (0.0-12.0); Neutrophils # (auto) 4.3 10 ^3/uL (1.6-8.6); Platelet Count (auto) 244 10^3/uL (140-450); Red Blood Cells 4.14 10^6/uL (4.0-5.20); Red Cell Distribution Width 14.7 % (11.8-14.3); White Blood Cell 7.1 10^3/uL (4.4-10.8)
[2024-04-15 13:02] LABS: Alanine Aminotransferase 15 U/L (7-40); Albumin 4.3 g/dL (3.2-4.8); Alkaline Phosphatase 77 U/L (46-116); Anion Gap 9 (5-15); BUN/Creatinine Ratio 20.3 (10.0-20.0); Calcium 9.8 mg/dL (8.7-10.4); Carbon Dioxide 22 mmol/L (20-31); Cholesterol 183 mg/dL (< 200); Potassium 4.8 mmol/L (3.5-5.1); Sodium 140 mmol/L (136-145); Triglycerides 106 mg/dL (< 150)
[2024-04-15 13:03] LABS: Bilirubin, Total 0.3 mg/dL (0.2-1.0); HDL Cholesterol 58 mg/dL (40-59); Total Protein 6.7 g/dL (5.7-8.2)
[2024-04-15 13:04] LABS: Aspartate Aminotransferase 8 U/L (13-40); Blood Urea Nitrogen 32 mg/dL (9-23); Chloride 109 mmol/L (98-107); Glucose 243 mg/dL (74-106); LDL Cholesterol 102 mg/dL (< 100)
[2024-04-15 13:07] LABS: Free T4 (Free Thyroxine) 0.89 ng/dL (0.89-1.76)
[2024-04-15 13:13] LABS: Uric Acid 8.2 mg/dL (3.1-7.8)
[2024-04-15 13:33] LABS: Erythrocyte Sedimentation Rate 21 mm/hr (0-20)
== END | disposition home or self-care (01) ==
LOC: LAB 12:14
PROVIDERS: ATTEND Internal Medicine
DX: E11.22 Type 2 diabetes mellitus with diabetic chronic kidney disease (principal); E11.42 Type 2 diabetes mellitus with diabetic polyneuropathy; N18.32 Chronic kidney disease, stage 3b
CPT/HCPCS: 36415; 80053; 80061; 82607; 83036; 84439; 84443; 84550; 85025; 85652

== ENCOUNTER 2024-09-21 12:40 | Outpatient (CLI) | payer MEDICAID ==
[2024-09-21 13:41] LABS: Hematocrit 41.1 % (36.0-46.0); Hemoglobin 13.9 g/dL (12.2-16.2); Mean Corpuscular Hemoglobin 31.6 pg (28.0-32.0); Mean Corpuscular Volume 93.8 fL (80.0-100.0); Nucleated Red Blood Cells % 0.1 %
[2024-09-21 14:02] LABS: Alanine Aminotransferase 15 U/L (7-40); Albumin 4.1 g/dL (3.2-4.8); Alkaline Phosphatase 85 U/L (46-116); Anion Gap 8 (5-15); BUN/Creatinine Ratio 22.0 (10.0-20.0); Bilirubin, Total 0.4 mg/dL (0.2-1.0); Calcium 9.3 mg/dL (8.7-10.4); Carbon Dioxide 25 mmol/L (20-31); Chloride 104 mmol/L (98-107); Sodium 137 mmol/L (136-145); Total Protein 6.6 g/dL (5.7-8.2)
[2024-09-21 14:05] LABS: Blood Urea Nitrogen 39 mg/dL (9-23); Glucose 264 mg/dL (74-106)
[2024-09-21 14:13] LABS: Potassium 5.7 mmol/L (3.5-5.1)
== END 2024-09-21 17:00 | disposition home or self-care (01) ==
LOC: LAB 12:40
PROVIDERS: ATTEND Internal Medicine
DX: I10 Essential (primary) hypertension (principal); E11.9 Type 2 diabetes mellitus without complications
CPT/HCPCS: 36415; 80053; 83036; 84439; 84443; 85025

== ENCOUNTER 2024-09-21 20:47 | Inpatient (IN) | payer MEDICAID ==
[~2024-09-21] VITALS: Ht 157.5 cm; Wt 100.0 kg
--- NOTE | 2024-09-21 21:21 | ED.PDOC ---
HPI Comments 83-year-old female with a history of neuropathy, hypothyroidism, depression, anxiety, CKD, hypertension, diabetes, and hyperlipidemia ambulance with a chief complaint of intermittent chest pain associated nausea and vomiting. Patient states her pain started approximately 2 days ago, and notes that she previously had a labs shown today and was told her potassium with 7.0. Overdose shortness when order to be stable, in notes that her pain is relieved at this time. Patient is noted to be alert and oriented to x4, but had a blood glucose level of 323. Patient denies any diarrhea, abdominal pain, headache, or any other associated symptoms, modifying at this time. PHYSICAL EXAM: General: Awake, alert and oriented. No acute distress. Chronic ill appearing Skin: Skin in warm, dry and intact. Appropriate color for ethnicity. HEENT: The head is normocephalic and atraumatic. Conjunctivae are clear without exudates or hemorrhage. Sclera is non-icteric. EOM are intact. No signs of nystagmus. Eyelids are normal in appearance without swelling or lesions. Oral mucosa is pink and moist Neck: The neck is supple with normal range of motion. No JVD. Cardiac: Heart rate and rhythm are normal. No murmurs, gallops, or rubs are auscultated. Respiratory: No signs of respiratory distress. Lung sounds are clear in all lobes bilaterally without rales, rhonchi, or wheezes. Abdominal: Abdomen is soft, non-tender without distention, guarding or rigidity. Bowel sounds are present and normoactive in all four quadrants. Extremities: Upper and lower extremities are atraumatic in appearance without deformity or edema. Neurological: The patient is awake, alert and oriented to person, place, and time with normal speech. Speech is clear. There is no facial asymmetry. Psychiatric: Appropriate mood and affect. Good judgement and insight. REVIEW OF SYSTEMS: General: No fever, no chills, or fatigue HEENT: No sore throat, no earache, no congestion, no neck pain. Cardiac: + chest pain. No palpitations. Lungs: No shortness of breath, no cough. GI: + nausea, + vomiting, no diarrhea, no constipation, no abdominal pain : No dysuria, frequency, or urgency. No hematuria. Musculoskeletal: No joint pain , no joint swelling, no extremity edema. Skin: No rash, no itching. Neuro: No headache, no dizziness, no weakness Chief Complaint: Chest Pain Time Seen by MD: 21:10 Primary Care Provider: MADHAVI Reviewed Notes: Nurses Notes, Career Transition Specialist Notes, Medications, Allergies Allergies: Coded Allergies: NO KNOWN ALLERGIES (Unverified , 03/04/11) Home Meds Reported Medications Fluoxetine Hcl (Pmdd) (Fluoxetine) 10 Mg Cap, 1 CAP PO DAILY, #30 CAP 2 Refills 10/16/18 Levothyroxine Sodium (Levothyroxine Sodium) 25 Mcg Tab, 25 MCG PO QAM, MCG 10/08/17 Glipizide (Glipizide) 10 Mg Tab, 10 MG PO BID, MG 09/10/17 Pioglitazone Hydrochloride (ACTOS TABLET) 30 Mg Tb, 30 MG PO DAILYP 09/10/17 Lovastatin (Lovastatin) 20 Mg Tab, 29 MG PO DAILY 09/10/17 Gabapentin (NEURONTIN CAPSULE) 400 Mg Cp, 1 CAP PO HS 08/11/15 Information Source: Patient, Emergency Med Personnel Mode of Arrival: EMS Severity: Moderate Timing: Days Duration: Intermittent, Days Prehospital treatment: 12 Lead EKG, Accucheck, Journalists And Other Writers Location: Chest (L) Radiation: No Radiation Quality: Pressure Onset: At Rest Cardiac Risk Factors: Hyperlipidemia, Diabetes PE Risk Factors: None History of: None Modifying Factors: Exertion, Movement Associated Signs and Symptoms: None Past Medical History PAST MEDICAL HISTORY: CKF, Depression, DM, High Lipids, Thyroid Surgical History: BTL, Cholecystectomy GREENHOUSE MANAGER History: No Pertinent GREENHOUSE MANAGER History Family History Family History: Unknown Social History Smoker: Non-Smoker, Quit Greater Than 1 Year Alcohol: Denies ETOH Use Drugs: Denies Drug Use Lives In: Home EKG EKG : Pulse Rate (adult): 81 [place]: Normal Cardiac Rhythm: NSR Block: None Hypertrophy: None ST: Normal Comments EKG Name: BLAKE HUANG Acct: [id number] [place] [id number] ELECTROCARDIOGRAM REPORT PATIENT: BLAKE HUANG ACCT: [id number] : 1940 LOC: ER ROOM / BED: / AGE / SEX: 83 / F ADM STATUS: REG ER SERVICE UNIT: [id number] ORDERING PHYSICIAN: FLORIDALMA JOHNSON MD PROCEDURE(s): EKG - ELECTROCARDIGRAM ORDER NUMBER(s): [id number], ACCESSION NUMBER(s): [id number] [facility] Test Date: 2024-09-21 Test Time: 21:38:34 Pat Name: BLAKE HUANG Department: ED Room: Gender: F Engineering And Scientific Programmer: IGNACIO : 1940 Requested By: FLORIDALMA JOHNSON Order Number: [id number] Reading MD: Measurements Intervals [place] Rate: 86 P: 72 [place]: 167 QRS: 62 QRSD: 86 T: 107 QT: 371 QTc: 444 Interpretive Statements Sinus rhythm Nonspecific T abnormalities, lateral leads Please click the below link to view image of tracing. DICTATED BY: DICTATED DATE/TIME:09/21/242137 ELECTRONICALLY SIGNED BY: ELECTRONICALLY CO-SIGNED BY: Was a procedure done? Was a procedure done?: No CP Differential Dx Differential Diagnosis: Angina, Anxiety / Panic Attack, Pulmonary Embolus Differential Diagnosis: HTN Accelerated, HTN Encephalopathy Differential Diagnosis: Angina, Chest Wall Pain, Cholelithiasis, Esophageal reflux/spasm, Gastritis, Pericarditis, Pneumonia, Pulmonary Embolus X-Ray, Labs, Meds, VS Vital Signs Date Time Temp Pulse Resp B/P (MAP) Pulse Ox O2 Delivery O2 Flow Rate FiO2 09/21/24 23:54 81 09/21/24 23:50 81 09/21/24 22:20 98.2 85 20 118/53 (74) 94 98.2 09/21/24 22:20 87 20 94 Room Air* 0 21 09/21/24 21:38 86 09/21/24 20:52 89 09/21/24 20:48 98.3 92 18 146/82 97 98.3 Lab Test 09/21/24 22:59 09/21/24 21:35 Range/Units Troponin I High Sensitivity < 3 L < 3 L </=34 ng/L White Blood Count 8.3 4.4-10.8 10^3/uL Red Blood Count 4.20 4.0-5.20 10^6/uL Hemoglobin 13.4 12.2-16.2 g/dL Hematocrit 39.7 36.0-46.0 % Mean Corpuscular Volume 94.6 80.0-100.0 fL Mean Corpuscular Hemoglobin 31.9 28.0-32.0 pg Mean Corpuscular Hemoglobin Concent 33.7 32.0-36.0 g/dL Red Cell Distribution Width 13.9 11.8-14.3 % Platelet Count 241 140-450 10^3/uL Mean Platelet Volume 7.7 6.9-10.8 fL Neutrophils (%) (Auto) 73.9 37.0-80.0 % Lymphocytes (%) (Auto) 19.5 10.0-50.0 % Monocytes (%) (Auto) 5.0 0.0-12.0 % Eosinophils (%) (Auto) 0.3 0.0-7.0 % Basophils (%) (Auto) 1.3 0.0-2.0 % Neutrophils # (Auto) 6.2 1.6-8.6 10 ^3/uL Lymphocytes # (Auto) 1.6 0.4-5.4 10 ^3/uL Monocytes # (Auto) 0.4 0-1.3 10 ^3/uL Eosinophils # (Auto) 0 0-0.8 10 ^3/uL Basophils # (Auto) 0.1 0-0.2 10 ^3/uL Nucleated Red Blood Cells 0.0 % Sodium Level 136 136-145 mmol/L Potassium Level 5.1 3.5-5.1 mmol/L Chloride Level 103 98-107 mmol/L Carbon Dioxide Level 23 20-31 mmol/L Anion Gap 10 5-15 Blood Urea Nitrogen 49 #H 9-23 mg/dL Creatinine 1.79 H 0.550-1.02 mg/dL Glomerular Filtration Rate Calc 28 >90 mL/min BUN/Creatinine Ratio 27.4 H 10.0-20.0 Serum Glucose 284 H 74-106 mg/dL Calcium Level 9.3 8.7-10.4 mg/dL B-Type Natriuretic Peptide 12.62 0-100 pg/mL Thyroid Stimulating Hormone (TSH) 3.32 0.55-4.78 uIU/mL Current Medications Medications (Trade) Dose Ordered Sig/Karthikeyan Route Start Time Stop Time Status Last Admin Sodium Chloride 1,000 ml @ 100 mls/hr Q10H ONCE IV 09/21/24 23:45 09/22/24 09:44 09/21/24 23:45 PATIENT: BLAKE HUANG ACCT: [id number] UNIT: [id number] : 1940 LOC: ER ROOM / BED: / AGE / SEX: 83 / F ADM STATUS: REG ER SERVICE 19 ORDERING PHYSICIAN: FLORIDALMA JOHNSON MD PROCEDURE(s): CXR1 - CHEST XRAY 1 VIEW REASON: Chest pain ORDER NUMBER(s): [id number], ACCESSION NUMBER(s): [id number] CHEST RADIOGRAPH Indication: Chest pain Technique: Single frontal view of the chest was obtained Comparison: XY CHEST XRAY 1 VIEW on DOS: 06/15/22, CHEST XRAY 1 VIEW on DOS: 03/04/20, CHEST PORTABLE on DOS: 02/28/20 FINDINGS: Lines and Tubes: None Lungs: Moderate pulmonary vascular congestion and interstitial edema.. No focal consolidation. Pleura: No effusion. No pneumothorax. Cardiomediastinal contours: Mild cardiomegaly. Bones: Right shoulder prosthesis. Fractures. IMPRESSION: 1. Moderate pulmonary edema. No focal consolidations. Mild cardiomegaly. Time of 1ST Reevaluation: 21:47 Reevaluation 1ST: Unchanged Patient Education/Counseling: Diagnosis, Treatment, Need For Follow Up Family Education/Counseling: No Family Present SEPSIS Sepsis Screen Date sepsis recognized/suspect: Sep 21, 2024 Time Sepsis recognized/suspect: 2047 Recent Procedure: No On Antibiotic Therapy: No Respiratory Rate >20: No Heart Rate >90: Yes Temp<36 C (96.8 F) or >38.3 C: No SBP <90 or MAP <65 mmHG: No New Acute Mental Status Change: No Is the patient on CPAP, BIPAP,: No Physician Orders Electrocardigram (09/21/24 23:51) Journalists And Other Writers (09/21/24 ) Notify Md If Abnormal Vs (09/21/24 21:20) Chest Xray 1 View (09/21/24 21:20) Sodium Chloride 0.9% (09/21/24 23:45) Admit (09/21/24 23:58) Nitroglycerin Sublingual (Ntrostat Subli (09/22/24 00:00) Morphine Sulfate Injection (09/22/24 00:00) Stat Ekg For Chest Pain (09/21/24 23:58) Notify Md Of Changes From Base (09/21/24 23:58) Railroad Signal And Switch Operator For 24 Hours (09/21/24 23:58) Emergency Dysrhythmia Protocol (09/21/24 23:58) Rhythm Strips Once Every Shift (09/21/24 23:58) Oxygen By Nasal Cannula (09/21/24 23:58) Vital Signs Date Time Temp Pulse Resp B/P (MAP) Pulse Ox O2 Delivery O2 Flow Rate FiO2 09/21/24 23:54 81 09/21/24 23:50 81 09/21/24 22:20 98.2 85 20 118/53 (74) 94 98.2 09/21/24 22:20 87 20 94 Room Air* 0 21 09/21/24 21:38 86 09/21/24 20:52 89 09/21/24 20:48 98.3 92 18 146/82 97 98.3 Laboratory Tests Test 09/21/24 21:35 White Blood Count 8.3 10^3/uL (4.4-10.8) Medications Medications Dose Ordered Sig/Karthikeyan Route Start Time Stop Time Status Last Admin Dose Admin Sodium Chloride 1,000 ml @ 100 mls/hr Q10H ONCE IV 09/21/24 23:45 09/22/24 09:44 09/21/24 23:45 Departure 1 Departure Time of Disposition: 23:39 Impression: Primary Impression: Renal failure Additional Impressions: Hyperglycemia Chest pain Disposition: ADMITTED INPATIENT Condition: Stable Comments Patient admitted to hospitalist service for further treatment, evaluation and monitoring. Extensive evaluation was performed in attempt to identify or rule out: (See differential diagnosis section) The following tests were ordered, and results were reviewed by me and discussed with patient: (See diagnostic results section) The following test were independently interpreted by me: EKG I reviewed and agreed with the following test results read by other providers: Chest x-ray Additional information was gathered from interviewing the following independent historians: EMS personnel Discussion of management or test interpretation with external physician/other qualified health adult care manager: N/A Decision regarding hospitalization or escalation of hospital level of care: Risk and benefits of admission for further treatment of patient's condition was considered. Due to patient's current clinical condition, high risk of decline and poor outcome if discharged and need for further inpatient management and monitoring, patient will be admitted to the hospital. Critical Care Note Critical Care Time?: No Stability Stability form required: No Heart Score Heart Score: Heart Score Response (Comments) Value History N/A 0 EKG N/A 0 Age N/A 0 Risk Factors N/A 0 Troponin N/A 0 Total 0 I personally scribed for FLORIDALMA JOHNSON MD ([email or web address]) on 09/21/24 at 21:21. Electronically submitted by Charles Hammonds ([email or web address]). I personally scribed for FLORIDALMA JOHNSON MD ([email or web address]) on 09/21/24 at 23:54. Electronically submitted by Charles Hammonds ([email or web address]). I personally scribed for FLORIDALMA JOHNSON MD ([email or web address]) on 09/22/24 at 00:15. Electronically submitted by Charles Hammonds ([email or web address]). FLORIDALMA JOHNSON MD Sep 21, 2024 21:21
[2024-09-21 21:48] LABS: Hematocrit 39.7 % (36.0-46.0); Hemoglobin 13.4 g/dL (12.2-16.2); Mean Corpuscular Hemoglobin 31.9 pg (28.0-32.0); Mean Corpuscular Volume 94.6 fL (80.0-100.0); Nucleated Red Blood Cells % 0.0 %
[2024-09-21 21:57] LABS: Chloride 103 mmol/L (98-107)
[2024-09-21 21:58] LABS: Anion Gap 10 (5-15); Calcium 9.3 mg/dL (8.7-10.4); Carbon Dioxide 23 mmol/L (20-31)
[2024-09-21 22:00] LABS: Potassium 5.1 mmol/L (3.5-5.1); Sodium 136 mmol/L (136-145)
--- NOTE | 2024-09-21 22:00 | ECG ---
[facility] Test Date: 2024-09-21 Test Time: 21:38:34 Pat Name: BLAKE HUANG Department: ED Room: Gender: F Mass Spectrometry Manager: IGNACIO : 1940 Requested By: FLORIDALMA JOHNSON Order Number: [id number] Reading MD: Measurements Intervals [place] Rate: 86 P: 72 [place]: 167 QRS: 62 QRSD: 86 T: 107 QT: 371 QTc: 444 Interpretive Statements Sinus rhythm Nonspecific T abnormalities, lateral leads Please click the below link to view image of tracing.
--- NOTE | 2024-09-21 22:00 | ECG ---
[facility] Test Date: 2024-09-21 Test Time: 20:46:04 Pat Name: BLAKE HUANG Department: ED Room: Gender: F Fiscal Services Manager: IGNACIO : 1940 Requested By: FLORIDALMA JOHNSON Order Number: [id number] Reading MD: Measurements Intervals [place] Rate: 89 P: 75 [place]: 149 QRS: 58 QRSD: 88 T: 110 QT: 377 QTc: 459 Interpretive Statements Sinus rhythm Abnormal T, consider ischemia, lateral leads Please click the below link to view image of tracing.
[2024-09-21 22:03] LABS: BUN/Creatinine Ratio 27.4 (10.0-20.0); Blood Urea Nitrogen 49 mg/dL (9-23); Glucose 284 mg/dL (74-106)
[2024-09-21 22:20] VITALS: PULSE 87; RESP 20; O2SAT 94
[2024-09-21] MEDS: SODIUM CHLORIDE 0.9% 1,000 ML IV ONE (23:45)
--- NOTE | 2024-09-21 23:49 | DVH ---
CHEST RADIOGRAPH Indication: Chest pain Technique: Single frontal view of the chest was obtained Comparison: XY CHEST XRAY 1 VIEW on DOS: 06/15/22, CHEST XRAY 1 VIEW on DOS: 03/04/20, CHEST PORTABLE o n DOS: 02/28/20 FINDINGS: Lines and Tubes: None Lungs: Moderate pulmonary vascular congestion and interstitial edema.. No focal consolidation. Pleura: No effusion. No pneumothorax. Cardiomediastinal contours: Mild cardiomegaly. Bones: Right shoulder prosthesis. Fractures. IMPRESSION: 1. Moderate pulmonary edema. No focal consolidations. Mild cardiomegaly.
[2024-09-22] VITALS (7 sets, daily range): BP systolic 120–141; BP diastolic 47–72; PULSE 64–97; RESP 12–22; TEMP 97–98.3; O2SAT 94–99
[2024-09-22] MEDS ORDERED: MORPHINE SULFATE INJ 2 MG/ml SYRG IV PRN
[2024-09-22] MEDS ORDERED: NITROGLYCERIN 0.4 MG SL TAB SL PRN
--- NOTE | 2024-09-22 00:58 | DVHHP2 ---
History of Present Illness Reason for Visit: Chest pain History of Present Illness 83-year-old female presents for evaluation of chest pain. Patient reports a two day history of left-sided chest pain that radiates to her left arm. She was also told by her primary care provider to present due to abnormal elevated potassium level. Patient denies palpitations or shortness for breath. No other acute symptoms were reported. Past Medical History Diabetes mellitus, dyslipidemia, thyroid, chronic kidney disease Past Surgical History BTL, cholecystectomy Family History Noncontributory Smoke: No ALCOHOL: none Drugs: None Lives: with Family Review of Systems Review of Systems Review of systems are currently negative otherwise addressed in HPI. Allergies: Coded Allergies: NO KNOWN ALLERGIES (Unverified , 03/04/11) Medications Current Medications Medications Dose Ordered Sig/Karthikeyan Route Start Time Stop Time Status Last Admin Dose Admin Nitroglycerin 0.4 mg Q5MINP PRN SL 09/22/24 00:00 Morphine Sulfate 2 mg Q30M PRN IV 09/22/24 00:00 Exam Vital Signs Vital Signs Date Time Temp Pulse Resp B/P (MAP) Pulse Ox O2 Delivery O2 Flow Rate FiO2 09/21/24 23:54 81 09/21/24 22:20 98.2 20 118/53 (74) 94 98.2 09/21/24 22:20 Room Air* 0 21 Exam Gen: 83-year-old female in mild distress, morbidly obese Skin: Warm, dry, normal color and texture, no rash. HEENT: Normocephalic atraumatic, mucous membranes moist and pink. Neck: Cervical and supraclavicular nodes normal without enlargement, trachea is midline, thyroid gland is normal without masses. Pulmonary: Clear to auscultation and percussion bilaterally. Cardiac: Regular rate and rhythm. No murmur Abdomen: Soft, nontender, nondistended, bowel sounds present all 4 quadrants, no guarding, no rigidity, no organomegaly. Extremities: No cyanosis, clubbing, no edema Neuro: Cranial nerves II through XII grossly intact, normal affect and speech, no focal motor deficits. Labs/Xrays Labs Test 09/22/24 00:17 09/21/24 22:59 09/21/24 21:35 Range/Units POC Glucose 250 H 70-106 mg/dl Troponin I High Sensitivity < 3 L </=34 ng/L White Blood Count 8.3 4.4-10.8 10^3/uL Red Blood Count 4.20 4.0-5.20 10^6/uL Hemoglobin 13.4 12.2-16.2 g/dL Hematocrit 39.7 36.0-46.0 % Mean Corpuscular Volume 94.6 80.0-100.0 fL Mean Corpuscular Hemoglobin 31.9 28.0-32.0 pg Mean Corpuscular Hemoglobin Concent 33.7 32.0-36.0 g/dL Red Cell Distribution Width 13.9 11.8-14.3 % Platelet Count 241 140-450 10^3/uL Mean Platelet Volume 7.7 6.9-10.8 fL Neutrophils (%) (Auto) 73.9 37.0-80.0 % Lymphocytes (%) (Auto) 19.5 10.0-50.0 % Monocytes (%) (Auto) 5.0 0.0-12.0 % Eosinophils (%) (Auto) 0.3 0.0-7.0 % Basophils (%) (Auto) 1.3 0.0-2.0 % Neutrophils # (Auto) 6.2 1.6-8.6 10 ^3/uL Lymphocytes # (Auto) 1.6 0.4-5.4 10 ^3/uL Monocytes # (Auto) 0.4 0-1.3 10 ^3/uL Eosinophils # (Auto) 0 0-0.8 10 ^3/uL Basophils # (Auto) 0.1 0-0.2 10 ^3/uL Nucleated Red Blood Cells 0.0 % Sodium Level 136 136-145 mmol/L Potassium Level 5.1 3.5-5.1 mmol/L Chloride Level 103 98-107 mmol/L Carbon Dioxide Level 23 20-31 mmol/L Anion Gap 10 5-15 Blood Urea Nitrogen 49 #H 9-23 mg/dL Creatinine 1.79 H 0.550-1.02 mg/dL Glomerular Filtration Rate Calc 28 >90 mL/min BUN/Creatinine Ratio 27.4 H 10.0-20.0 Serum Glucose 284 H 74-106 mg/dL Calcium Level 9.3 8.7-10.4 mg/dL SEPSIS Sepsis Screen Date sepsis recognized/suspect: Sep 21, 2024 Time Sepsis recognized/suspect: 2226 Recent Procedure: No On Antibiotic Therapy: No Respiratory Rate >20: No Heart Rate >90: No Temp<36 C (96.8 F) or >38.3 C: No SBP <90 or MAP <65 mmHG: No New Acute Mental Status Change: No Is the patient on CPAP, BIPAP,: No Physician Orders Electrocardigram (09/21/24 23:51) Finish Painter (09/21/24 ) Notify Md If Abnormal Vs (09/21/24 21:20) Chest Xray 1 View (09/21/24 21:20) Troponin-I Hs (09/22/24 00:20) Sodium Chloride 0.9% (09/21/24 23:45) Admit (09/21/24 23:58) Nitroglycerin Sublingual (Ntrostat Subli (09/22/24 00:00) Morphine Sulfate Injection (09/22/24 00:00) Stat Ekg For Chest Pain (09/21/24 23:58) Notify Md Of Changes From Base (09/21/24 23:58) Duct Maker For 24 Hours (09/21/24 23:58) Emergency Dysrhythmia Protocol (09/21/24 23:58) Rhythm Strips Once Every Shift (09/21/24 23:58) Oxygen By Nasal Cannula (09/21/24 23:58) Thyroid Stimulating Hormone (09/22/24 00:50) Gabapentin Capsule (Neurontin Capsule) (09/22/24 22:00) Levothyroxine Tablet (Synthroid Tablet) (09/22/24 06:00) Atorvastatin (Lipitor) (09/22/24 22:00) Amlodipine Tablet (Norvasc Tablet) (09/22/24 10:00) *[facility] (09/22/24 00:50) Aspirin Tablet (09/22/24 10:00) Basic Metabolic Panel (09/23/24 04:00) Glucose Blood (Accu-Chek Comfort Curve T (09/22/24 06:00) Mild Sliding Scale Npo - Q6hr (09/22/24 06:00) Dextrose 50% Syringe (09/22/24 01:00) Renal Standard(2gna,3gk,Lopho) (09/22/24 Breakfast) Ondansetron Hcl (Zofran) (09/22/24 01:00) Echo 2d Mode Cardiac Dop (09/22/24 00:50) Condition: Fair (09/22/24 00:50) Acetaminophen Tablet (Tylenol Tablet) (09/22/24 01:00) Bedrest With Bathroom Privileg (09/22/24 00:50) Vital Signs Date Time Temp Pulse Resp B/P (MAP) Pulse Ox O2 Delivery O2 Flow Rate FiO2 09/21/24 23:54 81 09/21/24 23:50 81 09/21/24 22:20 98.2 85 20 118/53 (74) 94 98.2 09/21/24 22:20 87 20 94 Room Air* 0 21 09/21/24 21:38 86 09/21/24 20:52 89 09/21/24 20:48 98.3 92 18 146/82 97 98.3 Laboratory Tests Test 09/21/24 21:35 White Blood Count 8.3 10^3/uL (4.4-10.8) Assessment/Plan Assessment/Plan Chest pain rule out ACS Acute on chronic renal failure Hypertension Morbid obesity Plan Admit the patient to telemetry to the hospitalist Nephrology consultation Echocardiogram pending BNP pending Resume home medications Continue treatment per orders. Plan discussed with: Patient My Orders Orders - VIKAS GALLEGOS Procedure Category Date Status Time Admit ADMIT 09/21/24 Transmitted 23:58 Nitroglycerin [facility] 09/22/24 In Process Sublingual (Ntrostat 00:00 Morphine Sulfate [facility] 09/22/24 In Process Injection 00:00 Stat Ekg For Chest [facility] 09/21/24 In Process Pain 23:58 Notify Of Changes [facility] 09/21/24 In Process From Base 23:58 Duct Maker For [facility] 09/21/24 In Process 24 Hours 23:58 Emergency Dysrhythmia [facility] 09/21/24 In Process Protocol 23:58 Rhythm Strips Once [facility] 09/21/24 In Process Every Shift 23:58 Oxygen By Nasal RT 09/21/24 Transmitted Cannula 23:58 Thyroid Stimulating LAB 09/22/24 Transmitted Hormone 00:50 Gabapentin Capsule PHA 09/22/24 Transmitted (Neurontin Capsule) 22:00 Levothyroxine Tablet PHA 09/22/24 Transmitted (Synthroid Tablet) 06:00 Atorvastatin (Lipitor) PHA 09/22/24 Transmitted 22:00 Amlodipine Tablet PHA 09/22/24 Transmitted (Norvasc Tablet) 10:00 *[facility] CONS 09/22/24 Transmitted -[place] 00:50 Aspirin Tablet PHA 09/22/24 Transmitted 10:00 Basic Metabolic Panel LAB 09/23/24 Verified 04:00 Glucose Blood PHA 09/22/24 Transmitted (Accu-Chek Comfort 06:00 Mild Sliding Scale PHA 09/22/24 Transmitted Npo - Q6hr 06:00 Dextrose 50% Syringe PHA 09/22/24 Transmitted 01:00 Renal DIET 09/22/24 Transmitted Standard(2gna,3gk,Lopho) Breakfast Ondansetron Hcl PHA 09/22/24 Transmitted (Zofran) 01:00 Echo 2d Mode Cardiac US 09/22/24 Transmitted DOP 00:50 Condition: Fair [facility] 09/22/24 In Process 00:50 Acetaminophen Tablet PHA 09/22/24 Transmitted (Tylenol Tablet) 01:00 Bedrest With Bathroom [facility] 09/22/24 In Process Privileg 00:50 Date of Service: Sep 21, 2024 Billing Provider: VIKAS GALLEGOS Common Visit Codes: [id number] INP/OBS CARE (HIGH) VIKAS GALLEGOS Sep 22, 2024 00:58
[2024-09-22] MEDS ORDERED: ONDANSETRON HCL 4 MG/2 ML VIAL IV PRN (01:00)
[2024-09-22] MEDS ORDERED: DEXTROSE (50%) 50ML SYRG IV PRN ×2 (01:00→01:15)
[2024-09-22] MEDS ORDERED: ACETAMINOPHEN 325 MG TAB PO PRN (01:00)
[2024-09-22] MEDS: LEVOTHYROXINE SODIUM 25 MCG TAB PO SCH (06:00)
[2024-09-22] MEDS: InsuLIN REG 1unit/0.01ml Soln (100units/ml) SC SCH ×2 (06:00→06:44)
[2024-09-22] MEDS: ACCU-CHEK COMFORT CURVE STRIP VI SCH ×2 (06:00)
--- NOTE | 2024-09-22 14:33 | DVHPN2 ---
Subjective Patient doing well Reviewed: H&P Changes from previous H/P or p: No Changes General: Per HPI Objective Vitals Vital Signs Date Time Temp Pulse Resp B/P (MAP) Pulse Ox O2 Delivery O2 Flow Rate FiO2 09/22/24 10:30 70 22 95 Room Air* 0 21 09/22/24 10:30 98.1 114/44 (67) 98.1 Exam GEN: Healthy appearing, well-developed, NAD. HEENT: NC/AT; MMM. CV: RRR, no m/r/g. LUNGS: CTAB, no w/r/c. ABD: Soft, NT/ND, NBS, no masses or organomegaly. EXT: skin Warm, well perfused. no rashes. No clubbing, cyanosis, or edema. NEURO: Ambulating with no limitations. No focal deficits. Medications Current Medications Medications Dose Ordered Sig/Karthikeyan Route Start Time Stop Time Status Last Admin Dose Admin Nitroglycerin 0.4 mg Q5MINP PRN SL 09/22/24 00:00 Morphine Sulfate 2 mg Q30M PRN IV 09/22/24 00:00 Gabapentin 400 mg HS PO 09/22/24 22:00 Levothyroxine Sodium 25 mcg QAM@0600 PO 09/22/24 06:00 Atorvastatin Calcium 20 mg HS PO 09/22/24 22:00 Amlodipine Besylate 5 mg DAILY PO 09/22/24 10:00 Aspirin 81 mg DAILY PO 09/22/24 10:00 Diagnostic Test (Pha) 1 strip Q6HR 09/22/24 06:00 09/22/24 11:54 1 STRIP Insulin Human Regular Q6HR SC 09/22/24 06:00 09/22/24 12:02 3 UNITS Dextrose 50 ml UD PRN IV 09/22/24 01:00 Ondansetron HCl 4 mg Q4HP PRN IV 09/22/24 01:00 Acetaminophen 650 mg Q6HP PRN PO 09/22/24 01:00 Diagnostic Test (Pha) 1 strip Q6HR 09/22/24 06:00 Insulin Human Regular Q6HR SC 09/22/24 06:00 Dextrose 50 ml UD PRN IV 09/22/24 01:15 Laboratory Results Laboratory Tests 09/21/24 21:35 Chemistry Test 09/21/24 21:35 Calcium Level 9.3 mg/dL (8.7-10.4) Cardiac Markers Test 09/21/24 21:35 B-Type Natriuretic Peptide 12.62 pg/mL (0-100) HgA1c, TSH Test 09/21/24 21:35 Thyroid Stimulating Hormone (TSH) 3.32 uIU/mL (0.55-4.78) Labs and/or images reviewed: Labs reviewed by me, Image(s) reviewed by me Assessment/Plan Assessment/Plan 83-year-old female w pmhx Diabetes mellitus, dyslipidemia, thyroid, chronic kidney disease . presents for evaluation of chest pain. Patient reports a two day history of left-sided chest pain that radiates to her left arm. She was also told by her primary care provider to present due to abnormal elevated potassium level. Patient denies palpitations or shortness for breath. No other acute symptoms were reported. 09/22: Need to follow up on patient's chest pain but patient has known troponins, no EKG changes,. There might be some [place] depression in AVF, possible T-wave inversion in aVL. But mostly unconcerning no STEMI. Patient has not echo from May , less than 6 months ago. Had some mild MS EF 65. On admit another echo was ordered. Pending to be read.. Patient has CKD creatinine is 1.7, mildly increased from baseline of approximately 1.4. Chest x-ray with pulmonary edema. There was also concern outpatient labs with high potassium over here is 5.1. We will wait for echo read - upon further interview symptoms sound like GERD we will start Pepcid. Patient has tried Protonix/Nexium before and had some reaction, we will avoid. Chest pain rule out ACS Pulmonary edema Acute on chronic renal failure Hypertension Morbid obesity Diabetes mellitus, dyslipidemia, thyroid chronic kidney disease . - pending echo read - continue home medications amlodipine 5 mg, aspirin 81 mg, Lipitor 20 mg, gabapentin 400 mg nightly, Synthroid 25 mcg, -continue prn pain control - continue prn Zofran IV -sliding scale mild q.6., -IV Pepcid 20 mg b.i.d. Diet renal Tele Full code Plan discussed with: Patient Date of Service: Sep 22, 2024 Billing Provider: NGA HOLLOWAY MD Common Visit Codes: [id number] INP/OBS CARE(HIGH) NGA HOLLOWAY MD Sep 22, 2024 14:33
--- NOTE | 2024-09-22 17:33 | ECG ---
[facility] Test Date: 2024-09-21 Test Time: 23:50:16 Pat Name: BLAKE HUANG Department: ED Room: 0288T Gender: F Studio Owner: IGNACIO : 1940 Requested By: FLORIDALMA JOHNSON Order Number: [id number] Reading MD: Measurements Intervals [place] Rate: 81 P: 58 WI: 172 QRS: 67 QRSD: 86 T: 102 QT: 403 QTc: 468 Interpretive Statements Sinus rhythm Nonspecific T abnormalities, lateral leads Please click the below link to view image of tracing.
[2024-09-22] MEDS: SUCRALFATE 1 GM/10 ML ORAL SUSP GT SCH (21:41)
[2024-09-22] MEDS: FAMOTIDINE (10MG/ML) 2ML VL IV SCH (21:41)
[2024-09-22] MEDS: ATORVASTATIN 20 MG TAB PO SCH (21:41)
[2024-09-22] MEDS: GABAPENTIN 400 MG CAP PO SCH (21:41)
[2024-09-23 01:00] VITALS: BP_SYST 119; BP_SYST 98; BP_DIAS 119; BP_DIAS 71; PULSE 67; RESP 17; RESP 67; TEMP 97.6; O2SAT 17; O2SAT 98
[2024-09-23 05:00] VITALS: BP 115/73; PULSE 67; RESP 16; TEMP 97.5; O2SAT 99
[2024-09-23 08:00] VITALS: PULSE 61
[2024-09-23 08:10] LABS: Potassium 4.7 mmol/L (3.5-5.1); Sodium 139 mmol/L (136-145)
[2024-09-23 08:11] LABS: Anion Gap 8 (5-15); Carbon Dioxide 23 mmol/L (20-31)
[2024-09-23 08:12] LABS: Calcium 9.0 mg/dL (8.7-10.4)
[2024-09-23 08:17] LABS: BUN/Creatinine Ratio 23.9 (10.0-20.0)
[2024-09-23 08:21] LABS: Blood Urea Nitrogen 33 mg/dL (9-23); Chloride 108 mmol/L (98-107); Glucose 200 mg/dL (74-106)
[2024-09-23 09:00] VITALS: BP 106/53; PULSE 76; RESP 18; TEMP 97.8; O2SAT 98
[2024-09-23 13:00] VITALS: BP 131/65; PULSE 66; RESP 20; TEMP 97.5; O2SAT 99
[2024-09-23] MEDS ORDERED: FAMO20TA10 PO (15:38)
--- NOTE | 2024-09-23 15:43 | DVHDS2 ---
Discharge Summary Date of Admission Sep 21, 2024 at 23:58 Date of Discharge: Sep 23, 2024 Admitting Diagnosis Chest pain Labs/Diagnostic Data: Laboratory Results Test 09/23/24 11:14 09/23/24 06:50 09/22/24 01:04 09/21/24 21:35 POC Glucose 188 mg/dl (70-106) Sodium Level 139 mmol/L (136-145) Potassium Level 4.7 mmol/L (3.5-5.1) Chloride Level 108 mmol/L (98-107) Carbon Dioxide Level 23 mmol/L (20-31) Anion Gap 8 (5-15) Blood Urea Nitrogen 33 mg/dL (9-23) Creatinine 1.38 mg/dL (0.550-1.02) Glomerular Filtration Rate Calc 38 mL/min (>90) BUN/Creatinine Ratio 23.9 (10.0-20.0) Serum Glucose 200 mg/dL (74-106) Calcium Level 9.0 mg/dL (8.7-10.4) Troponin I High Sensitivity < 3 ng/L (</=34) White Blood Count 8.3 10^3/uL (4.4-10.8) Red Blood Count 4.20 10^6/uL (4.0-5.20) Hemoglobin 13.4 g/dL (12.2-16.2) Hematocrit 39.7 % (36.0-46.0) Mean Corpuscular Volume 94.6 fL (80.0-100.0) Mean Corpuscular Hemoglobin 31.9 pg (28.0-32.0) Mean Corpuscular Hemoglobin Concent 33.7 g/dL (32.0-36.0) Red Cell Distribution Width 13.9 % (11.8-14.3) Platelet Count 241 10^3/uL (140-450) Mean Platelet Volume 7.7 fL (6.9-10.8) Neutrophils (%) (Auto) 73.9 % (37.0-80.0) Lymphocytes (%) (Auto) 19.5 % (10.0-50.0) Monocytes (%) (Auto) 5.0 % (0.0-12.0) Eosinophils (%) (Auto) 0.3 % (0.0-7.0) Basophils (%) (Auto) 1.3 % (0.0-2.0) Neutrophils # (Auto) 6.2 10 ^3/uL (1.6-8.6) Lymphocytes # (Auto) 1.6 10 ^3/uL (0.4-5.4) Monocytes # (Auto) 0.4 10 ^3/uL (0-1.3) Eosinophils # (Auto) 0 10 ^3/uL (0-0.8) Basophils # (Auto) 0.1 10 ^3/uL (0-0.2) Nucleated Red Blood Cells 0.0 % B-Type Natriuretic Peptide 12.62 pg/mL (0-100) Thyroid Stimulating Hormone (TSH) 3.32 uIU/mL (0.55-4.78) Other Laboratory Tests 09/23/24 06:50 09/21/24 21:35 Brief Hx & Hospital Course: 83-year-old female w pmhx Diabetes mellitus, dyslipidemia, thyroid, chronic kidney disease . presents for evaluation of chest pain. Patient reports a two day history of left-sided chest pain that radiates to her left arm. She was also told by her primary care provider to present due to abnormal elevated potassium level. Patient denies palpitations or shortness for breath. No other acute symptoms were reported. 09/22: Need to follow up on patient's chest pain but patient has known troponins, no EKG changes,. There might be some [place] depression in AVF, possible T-wave inversion in aVL. But mostly unconcerning no STEMI. Patient has not echo from May , less than 6 months ago. Had some mild MS EF 65. On admit another echo was ordered. Pending to be read.. Patient has CKD creatinine is 1.7, mildly increased from baseline of approximately 1.4. Chest x-ray with pulmonary edema. There was also concern outpatient labs with high potassium over here is 5.1. We will wait for echo read - upon further interview symptoms sound like GERD we will start Pepcid. Patient has tried Protonix/Nexium before and had some reaction, we will avoid. 09/23: Telemetry unconcerning, patient is chest pain-free. Echocardiogram pending we will need to be followed up outpatient. This is likely related GERD as patient is feeling better after starting Pepcid. We will discharge patient on Pepcid. Reviewed patient GERD lifestyle changes and avoiding certain foods. Diagnosis: Chest pain ruled out ACS , likely due to GERD GERD Pulmonary edema, resolved Acute on chronic renal failure , ERNESTINE due to VMN, resolved Hypertension Morbid obesity Diabetes mellitus, dyslipidemia, thyroid chronic kidney disease Discharge plan: - Chest pain likely related to GERD, take Pepcid 20 mg twice daily for 30 days, follow up with PCP to review ongoing need - PCP to review echocardiogram - Follow diet to decrease reflux, no late night meals, sleep with extra pillow under head. - For diet continue low-salt, low-carbohydrate. - continue other home medications not mentioned above -Follow up with PCP to review discharge 1-2 weeks. Condition at Discharge: Fair Final Diagnosis/Problems List Chest pain ruled out ACS , likely due to GERD GERD Pulmonary edema, resolved Acute on chronic renal failure , ERNESTINE due to VMN, resolved Hypertension Morbid obesity Diabetes mellitus, dyslipidemia, thyroid chronic kidney disease Discharge Disposition: Home Discharge Instruct/Medications Diet: Consistent carbohydrate, Renal Activity: No Restrictions, As Tolerated Follow Up/Referral: As below Medications: As below Scheduled Famotidine (Pepcid Tablet), 1 TAB PO BID Fluoxetine Hcl (Pmdd) (Fluoxetine), 1 CAP PO DAILY, (Reported) Gabapentin (Neurontin Capsule), 1 CAP PO HS, (Reported) Glipizide (Glipizide), 10 MG PO BID, (Reported) Levothyroxine Sodium (Levothyroxine Sodium), 25 MCG PO QAM, (Reported) Lovastatin (Lovastatin), 29 MG PO DAILY, (Reported) Pioglitazone Hydrochloride (Actos Tablet), 30 MG PO DAILYP, (Reported) Discharge Statement: "Patient was advised to return to the ER or call 911 if any headaches, dizziness, shortness of breath, chest pain, abdominal pain, bleeding, fevers, or worsening of medical condition. Patient was counseled about treatment plan, medications, possible side effects, patientverbalized understanding. All questions were answered to the best of my ability. This discharge took greater then 30 minutes in planning, reviewing documentation, counseling the patient, and discussing with other team members." Date of Service: Sep 23, 2024 Billing Provider: NGA HOLLOWAY MD Common Visit Codes: [id number] DISCH DAY >30min NGA HOLLOWAY MD Sep 23, 2024 15:43
--- NOTE | 2024-09-23 16:10 | DVHINCON2 ---
Date of service: Sep 23, 2024 Reason for Consultation ERNESTINE History of Present Illness 83-year-old morbidly obese female past medical history of diabetes, hyperlipidemia, hypertension. Patient presents to the hospital complaining of chest pain. Patient was admitted for this workup and ischemic evaluation. Patient is noted to have elevated creatinine level. Review of previous hospitalization consistent with chronic kidney disease stage IIIB. Patient presented slightly diminished renal function this presentation likely hemodynamically mediated which has now improved Allergies: Coded Allergies: NO KNOWN ALLERGIES (Unverified , 03/04/11) Home Meds Active Scripts Famotidine (PEPCID TABLET) 20 Mg Tb, 1 TAB PO BID for 30 Days, #60 TAB 0 Refills Prov:NGA HOLLOWAY MD 09/23/24 Reported Medications Fluoxetine Hcl (Pmdd) (Fluoxetine) 10 Mg Cap, 1 CAP PO DAILY, #30 CAP 2 Refills 10/16/18 Levothyroxine Sodium (Levothyroxine Sodium) 25 Mcg Tab, 25 MCG PO QAM, MCG 10/08/17 Glipizide (Glipizide) 10 Mg Tab, 10 MG PO BID, MG 09/10/17 Pioglitazone Hydrochloride (ACTOS TABLET) 30 Mg Tb, 30 MG PO DAILYP 09/10/17 Lovastatin (Lovastatin) 20 Mg Tab, 29 MG PO DAILY 09/10/17 Gabapentin (NEURONTIN CAPSULE) 400 Mg Cp, 1 CAP PO HS 08/11/15 Current Medications Current Medications Medications (Trade) Dose Ordered Sig/Karthikeyan Route PRN Reason Start Time Stop Time Status Last Admin Gabapentin (Neurontin Capsule) 400 mg HS PO 09/22/24 22:00 09/22/24 21:41 Atorvastatin Calcium (Lipitor) 20 mg HS PO 09/22/24 22:00 09/22/24 21:41 Famotidine (Pepcid Injection) 20 mg Q12HR IV 09/22/24 22:00 09/23/24 10:24 Sucralfate (Carafate Susp) 1 gm BID@0600,2200 GT 09/22/24 22:00 09/23/24 05:39 Family History: Family history: Cardiovascular disease G8 MOTHER Family history: Diabetes mellitus G8 MOTHER G8 FATHER Family history: Hypercholesterolemia (situation) G8 SISTER H&P Exam Vital Signs/I&O Vital Sign Date Time Temp Pulse Resp B/P (MAP) Pulse Ox O2 Delivery O2 Flow Rate FiO2 09/23/24 16:52 98.1 71 16 108/55 (72) 98 98.1 09/23/24 08:00 Room Air* 0 21 Intake and Output 09/22/24 09/23/24 19:00 07:00 Intake Total 840 ml 600 ml Output Total 550 ml Balance 290 ml 600 ml Intake Oral 840 ml 600 ml Output Urine Total 550 ml # Voids 4 Physical Exam Morbidly obese white female Not in overt distress Abdomen is soft 1+ edema Labs/Diagnostic Data Labs/Diagnostic Data Laboratory Tests Test 09/23/24 11:14 09/23/24 06:50 09/23/24 05:42 09/23/24 00:11 Range/Units POC Glucose 188 H 189 H 150 H 70-106 mg/dl Sodium Level 139 136-145 mmol/L Potassium Level 4.7 3.5-5.1 mmol/L Chloride Level 108 H 98-107 mmol/L Carbon Dioxide Level 23 20-31 mmol/L Anion Gap 8 5-15 Blood Urea Nitrogen 33 #H 9-23 mg/dL Creatinine 1.38 H 0.550-1.02 mg/dL Glomerular Filtration Rate Calc 38 >90 mL/min BUN/Creatinine Ratio 23.9 H 10.0-20.0 Serum Glucose 200 H 74-106 mg/dL Calcium Level 9.0 8.7-10.4 mg/dL Test 09/22/24 16:54 09/22/24 11:40 09/22/24 06:21 09/22/24 01:04 Range/Units POC Glucose 263 H 187 H 178 H 70-106 mg/dl Troponin I High Sensitivity < 3 L </=34 ng/L Test 09/22/24 00:17 09/21/24 22:59 09/21/24 21:35 Range/Units POC Glucose 250 H 70-106 mg/dl Troponin I High Sensitivity < 3 L < 3 L </=34 ng/L White Blood Count 8.3 4.4-10.8 10^3/uL Red Blood Count 4.20 4.0-5.20 10^6/uL Hemoglobin 13.4 12.2-16.2 g/dL Hematocrit 39.7 36.0-46.0 % Mean Corpuscular Volume 94.6 80.0-100.0 fL Mean Corpuscular Hemoglobin 31.9 28.0-32.0 pg Mean Corpuscular Hemoglobin Concent 33.7 32.0-36.0 g/dL Red Cell Distribution Width 13.9 11.8-14.3 % Platelet Count 241 140-450 10^3/uL Mean Platelet Volume 7.7 6.9-10.8 fL Neutrophils (%) (Auto) 73.9 37.0-80.0 % Lymphocytes (%) (Auto) 19.5 10.0-50.0 % Monocytes (%) (Auto) 5.0 0.0-12.0 % Eosinophils (%) (Auto) 0.3 0.0-7.0 % Basophils (%) (Auto) 1.3 0.0-2.0 % Neutrophils # (Auto) 6.2 1.6-8.6 10 ^3/uL Lymphocytes # (Auto) 1.6 0.4-5.4 10 ^3/uL Monocytes # (Auto) 0.4 0-1.3 10 ^3/uL Eosinophils # (Auto) 0 0-0.8 10 ^3/uL Basophils # (Auto) 0.1 0-0.2 10 ^3/uL Nucleated Red Blood Cells 0.0 % Sodium Level 136 136-145 mmol/L Potassium Level 5.1 3.5-5.1 mmol/L Chloride Level 103 98-107 mmol/L Carbon Dioxide Level 23 20-31 mmol/L Anion Gap 10 5-15 Blood Urea Nitrogen 49 #H 9-23 mg/dL Creatinine 1.79 H 0.550-1.02 mg/dL Glomerular Filtration Rate Calc 28 >90 mL/min BUN/Creatinine Ratio 27.4 H 10.0-20.0 Serum Glucose 284 H 74-106 mg/dL Calcium Level 9.3 8.7-10.4 mg/dL B-Type Natriuretic Peptide 12.62 0-100 pg/mL Thyroid Stimulating Hormone (TSH) 3.32 0.55-4.78 uIU/mL Assessment 83-year-old female past medical history of diabetes hypertension presented with chest pain. Nephrology consulted due to elevated creatinine level. Acute kidney injury hemodynamically mediated CKD 3b Chest pain Hypertension Diabetes Acute kidney injury has resolved and returned closer to baseline. Patient had workup of cardiac evaluation. Avoid contrast studies Avoid non inflammatory drugs Resume home medications I recommend outpatient renal Clinic follow-up for chronic kidney disease no emergent indication for dialysis or further renal evaluation inpatient at this time Care time 38 minutes Plan discussed with: Patient EMILIA SANCHEZ MD Sep 23, 2024 16:10
[2024-09-23 16:52] VITALS: BP 108/55; PULSE 71; RESP 16; TEMP 98.1; O2SAT 98
== END 2024-09-23 18:45 | disposition home or self-care (01) | DRG 391 ==
LOC: ER 20:47 → EDBD 20:47 → OVERFLOW 23:58 → TELE-WESTW 09-22 12:52
PROVIDERS: ADMIT Student in an Organized Health Care Education/Training Program; ATTEND Student in an Organized Health Care Education/Training Program
DX: K21.9 Gastro-esophageal reflux disease without esophagitis (principal); N17.0 Acute kidney failure with tubular necrosis; J81.1 Chronic pulmonary edema; Z68.41 Body mass index [BMI] 40.0-44.9, adult; E66.01 Morbid (severe) obesity due to excess calories; N18.32 Chronic kidney disease, stage 3b; E11.65 Type 2 diabetes mellitus with hyperglycemia; E11.22 Type 2 diabetes mellitus with diabetic chronic kidney disease; E11.40 Type 2 diabetes mellitus with diabetic neuropathy, unspecified; I12.9 Hypertensive chronic kidney disease with stage 1 through stage 4 chronic kidney disease, or unspecified chronic kidney disease; E78.5 Hyperlipidemia, unspecified; Z90.49 Acquired absence of other specified parts of digestive tract; Z79.899 Other long term (current) drug therapy; Z83.3 Family history of diabetes mellitus; Z82.49 Family history of ischemic heart disease and other diseases of the circulatory system
CPT/HCPCS: 36415; 71045; 80048; 82962; 83880; 84443; 84484; 85025; 93005; 93306; 96360; G0378; J1815; J3490

== ENCOUNTER → 2025-01-20 | Outpatient (CLI) | payer MEDICAID ==
[~2025-01-20] MED LIST changes: +FAMO20TA10 PO
[2025-01-20 13:24] LABS: Hematocrit 40.2 % (36.0-46.0); Hemoglobin 13.2 g/dL (12.2-16.2); Mean Corpuscular Hemoglobin 30.9 pg (28.0-32.0); Mean Corpuscular Volume 93.8 fL (80.0-100.0); Nucleated Red Blood Cells % 0.2 %
[2025-01-20 13:49] LABS: Alanine Aminotransferase 13 U/L (7-40); Albumin 4.0 g/dL (3.2-4.8); Alkaline Phosphatase 81 U/L (46-116); Anion Gap 10 (5-15); BUN/Creatinine Ratio 14.3 (10.0-20.0); Bilirubin, Total 0.5 mg/dL (0.2-1.0); Blood Urea Nitrogen 19 mg/dL (9-23); Calcium 9.5 mg/dL (8.7-10.4); Carbon Dioxide 26 mmol/L (20-31); Chloride 103 mmol/L (98-107); Potassium 3.8 mmol/L (3.5-5.1); Sodium 139 mmol/L (136-145); Total Protein 6.8 g/dL (5.7-8.2); Uric Acid 6.0 mg/dL (3.1-7.8)
[2025-01-20 13:50] LABS: Glucose 227 mg/dL (74-106)
== END | disposition home or self-care (01) ==
LOC: LAB 12:48
PROVIDERS: ATTEND Internal Medicine
DX: I10 Essential (primary) hypertension (principal); E11.9 Type 2 diabetes mellitus without complications
CPT/HCPCS: 36415; 80053; 83036; 84439; 84443; 84550; 85025